=== PATIENT | female | born 1955 | race Caucasian/White ===

== ENCOUNTER 2025-07-04 20:06 | Observation (INO) ==
[2025-07-04] MEDS: ONDANSETRON INJ 2 MG/ML 2 ML VIAL IV STA (20:50)
[2025-07-04] MEDS: SODIUM CHLORIDE 0.9% 1,000 ML IV ONE (20:53)
[2025-07-04 21:07] LABS: Hematocrit (blood only) 42.7 % (37.0-47.0); Hemoglobin 14.3 g/dl (12.0-16.0); Immature Granulocytes # (auto) 0.03 K/uL (0.01-0.20); Immature Granulocytes % (auto) 0.2 %; Mean Corpuscular Hemoglobin 28.0 pg (25.0-34.0); Mean Corpuscular Volume 83.6 fL (80.0-100.0); Platelet Count 392 K/uL (130-400); RDW Standard Deviation 44.0 fL (36.4-46.3); Red Blood Count 5.11 M/uL (4.20-5.40); White Blood Count 12.42 K/ul (4.8-10.8)
[2025-07-04 21:25] LABS: Alanine Aminotransferase 10 U/L (7-52); Albumin Globulin Ratio 0.9 (0.9-2); Alkaline Phosphatase 92 U/L (34-104); Anion Gap 10 (3-11); Bilirubin,Total 0.8 mg/dl (0.2-1.0); Blood Urea Nitrogen 34 mg/dl (6-23); Calcium 9.6 mg/dl (8.6-10.3); Carbon Dioxide 20 mmol/L (21-32); Chloride 107 mmol/L (98-107); Globulin 4.3 gm/dl (2.5-4.0); Glucose 132 mg/dl (70-99(Fasting)); Lipase 30 U/L (11-82); Potassium 4.3 mmol/L (3.5-5.1); Sodium 137 mmol/L (136-145); Total Protein 8.1 gm/dl (6.0-8.3)
--- NOTE | 2025-07-04 21:38 | Emergency Department Note ---
Impression & Plan Lower abdominal pain, Bilateral hydronephrosis, Nausea & vomiting, Leukocytosis, Elevated serum creatinine ED Provider Note HISTORY OF PRESENT ILLNESS: Patient is a 70-year-old female presenting with nausea, vomiting and lower abdominal pain. Patient reports that she was recently seen in the [facility] emergency department 5 days ago. She reports that she was on vacation traveling in that area when she started to have nausea and vomiting and feel unwell. She states that she had a Chavez catheter placed, but was immediately having blood out of her Chavez and demanded to be discharged so that she could come closer to home and be evaluated by a doctor here. She signed out AGAINST MEDICAL ADVICE at that facility. They removed her Chavez catheter prior to discharge. She reportedly was on antibiotics for presumed UTI per the patient. Patient reports that she was doing fine over the weekend, but in the last 48 hours has had persistent nausea and vomiting. Reports that she is also having bilateral lower abdominal pain. She reports that she has had a cholecystectomy but no other abdominal surgeries. Denies any fevers at home, but does report subjective chills. Denies any dysuria or hematuria. Denies any recent sick contact exposures. ROS: as above PHYSICAL EXAM: Constitutional: Patient appears in no acute distress. HENT: Head: Normocephalic and atraumatic. Eyes: EOMI, PERRL Mouth/Throat: Mucous membranes moist. Neck: Trachea midline. Neck supple. Cardiovascular: Tachycardic with regular rhythm. No murmurs, rubs or gallops. Intact distal pulses. Pulmonary/Chest: No respiratory distress. Breath sounds clear and equal bilaterally. No wheezes or rales. Abdominal: Abdomen soft, no rebound or guarding. RLQ TTP Musculoskeletal: No edema, tenderness or deformity noted. Skin: Warm and dry. No rash, erythema, pallor or cyanosis Psychiatric: Appropriate mood and affect for situation. Neurological: Alert and keenly responsive. CN II-XII grossly intact, moving all extremities equally and fully. MDM: - Vitals signs showed hypertension and tachycardia. - History obtained via patient. History as above. - Chronic conditions affecting care: Unknown - Differential diagnoses include, but are not limited to: Appendicitis; bowel obstruction; UTI; ureteral stone; pyelonephritis - Order placed for continuous cardiac monitoring. At this time, monitor showed rate of 101 bpm with normal sinus rhythm, per my interpretation. - External medical records reviewed. - Laboratory workup interpreted by myself showed leukocytosis (WBC 12.42) with neutrophil predominance; elevated BUN (34); elevated creatinine (1.95 - unknown baseline); normal AST/ALT; normal lipase - CT abdomen/pelvis wo contrast showed bilateral hydronephrosis. - Patient given 1L NS, 1g IV tylenol and 4 mg IV zofran in ER. - UA showed elevated leukocyte esterase. - Discussion was had with case filler about patient's case and need for admission - Hospitalist consulted for admission - [facility] ASSESSMENT AND PLAN: Diagnosis: Lower abdominal pain; nausea and vomiting; elevated creatinine; leukocytosis; bilateral hydronephrosis Plan: admit Past Med/Surg History Problem List (Updated 07/04/25 @ 22:24 by Hazel Chand MD) Elevated serum creatinine (Acute) Leukocytosis (Acute) Nausea & vomiting (Acute) Bilateral hydronephrosis (Acute) Lower abdominal pain (Acute) Social History Smoking Status: Never smoker Preferred Language: Salvadorean Feels Safe at Home: Yes Allergies Allergies Allergy/AdvReac Type Severity Reaction Status Date / Time codeine Allergy Severe IV--WHOLE Verified 07/04/25 22:22 ARM SWELLED, SHORT OF BREATH Penicillins Allergy Intermediate Rash Verified 07/04/25 22:22 Sulfa (Sulfonamide Allergy Intermediate Rash Verified 07/04/25 22:22 Antibiotics) tetracycline Allergy Intermediate Rash Verified 07/04/25 22:22 Home Meds Home Medications Medication Instructions Recorded Confirmed insulin glargine 100 unit/mL (3 6 unit subcut BID 07/04/25 07/04/25 mL) subcutaneous pen (Lantus Solostar U-100 Insulin) metoprolol succinate 25 mg 0 mg PO DAILY 07/04/25 07/04/25 tablet,extended release 24 hr tirzepatide 2.5 mg/0.5 mL 2.5 mg subcut WK 07/04/25 07/04/25 subcutaneous pen injector (Mounjaro) Results & Data (ED) Vital Signs Vital Signs - 24 hr 07/04/25 20:10 07/04/25 20:48 Temperature 36.7 C Temperature Source Oral Pulse Rate 108 H 101 H Respiratory Rate 18 Respiratory Effort / Characteristics Non-Labored Spontaneous Respiratory Depth Normal Blood Pressure 117/68 Blood Pressure Mean 84 Pulse Oximetry 98 Oxygen Delivery Method Room Air Sepsis Recent Fever Within 48 Hours No Sepsis New/Unexplained Change in Mental Status No Sepsis Action Taken by Nursing No Action Required Laboratory Data 07/04/25 20:19 07/04/25 20:19 Lab Results 07/04/25 07/04/25 Range/Units 20:19 22:07 WBC 12.42 H (4.8-10.8) K/ul RBC 5.11 (4.20-5.40) M/uL Hgb 14.3 (12.0-16.0) g/dl Hct 42.7 (37.0-47.0) % MCV 83.6 (80.0-100.0) fL MCH 28.0 (25.0-34.0) pg MCHC 33.5 (32.0-36.0) g/dL RDW Std Deviation 44.0 (36.4-46.3) fL RDW Coeff of Maria A 14.4 (11.5-14.5) % Plt Count 392 (130-400) K/uL MPV 9.9 (9.4-12.4) fL Immature Gran % (Auto) 0.2 % Neut % (Auto) 71.5 % Lymph % (Auto) 20.4 % [place] % (Auto) 5.4 % Eos % (Auto) 1.7 % Baso % (Auto) 0.8 % Neut # (Auto) 8.88 H (1.40-6.50) K/uL Lymph # (Auto) 2.53 (1.20-3.40) K/uL [place] # (Auto) 0.67 H (0.11-0.59) K/uL Eos # (Auto) 0.21 (0.00-0.50) K/uL Baso # (Auto) 0.10 (0.00-0.20) K/uL Immature Gran # (Auto) 0.03 (0.01-0.20) K/uL Sodium 137 (136-145) mmol/L Potassium 4.3 (3.5-5.1) mmol/L Chloride 107 (98-107) mmol/L Carbon Dioxide 20 L (21-32) mmol/L Anion Gap 10 (3-11) BUN 34 H (6-23) mg/dl Creatinine 1.95 H (0.6-1.2) mg/dl Est Cr Clr Drug Dosing Not Reportable eGFR 27.19 BUN/Creatinine Ratio 17.4 (10-20) Glucose 132 H (70-99(Fasting)) mg/dl Calcium 9.6 (8.6-10.3) mg/dl Total Bilirubin 0.8 (0.2-1.0) mg/dl AST 16 (13-39) U/L ALT 10 (7-52) U/L Alkaline Phosphatase 92 (34-104) U/L Total Protein 8.1 (6.0-8.3) gm/dl Albumin 3.8 (3.4-5.0) gm/dl Globulin 4.3 H (2.5-4.0) gm/dl Albumin/Globulin Ratio 0.9 (0.9-2) Lipase 30 (11-82) U/L Urine Color Yellow Urine Appearance Cloudy A (Clear) Urine pH 6.0 (4.5-7.5) Ur Specific [place] 1.010 (1.000-1.030) Urine Protein 2+ H (Negative) Urine Glucose (UA) Negative (Negative) Urine Ketones Negative (Negative) Urine Blood 1+ H (Negative) Urine Nitrite Negative (Negative) Urine Bilirubin Negative (Negative) Urine Urobilinogen Negative (Negative) Ur Leukocyte Esterase 3+ H (Negative) Urine Comment Administered Medications Discontinued Medications Sodium Chloride (Nss) 1,000 mls @ 999 mls/hr IV .Q1H1M ONE Stop: 07/04/25 21:49 Last Infusion: 07/04/25 22:01 Dose: Infused Documented By: Admin: 07/04/25 20:53 Dose: 999 mls/hr Documented By: ARLENE Acetaminophen (Ofirmev) 1,000 mg in 100 mls @ 400 mls/hr IV NOW STA Stop: 07/04/25 22:07 Last Infusion: 07/04/25 22:20 Dose: Infused Documented By: Admin: 07/04/25 22:04 Dose: 400 mls/hr Documented By: ARLENE Ondansetron HCl (Ondansetron Inj 2 Mg/Ml 2 Ml Vial) 4 mg IV NOW STA Stop: 07/04/25 20:50 Last Admin: 07/04/25 20:50 Dose: 4 mg Documented By: ARLENE Imaging Data Radiologist's Impression: Abdomen/Pelvis CT 07/04/25 21:32 Exam(s): CT ABDOMEN + PELVIS Without Contrast EXAM: CT Abdomen and Pelvis Without Intravenous Contrast CLINICAL HISTORY: Reason for exam: lower abd pain. TECHNIQUE: Axial computed tomography images of the abdomen and pelvis without intravenous contrast. CTDI is 13.14 mGy and DLP is 640.88 mGy-cm. Automated exposure control was utilized for the study. A dose lowering technique was utilized adhering to the principles of ALARA. COMPARISON: No relevant prior studies available. FINDINGS: ABDOMEN: Liver: Unremarkable. Gallbladder and bile ducts: Cholecystectomy. Pancreas: Unremarkable. Spleen: Unremarkable. Adrenals: Unremarkable. Kidneys and ureters: Bilateral hydroureteronephrosis. No stones. No mass. Stomach and bowel: Colonic diverticulosis without acute diverticulitis. PELVIS: Appendix: No findings to suggest acute appendicitis. Bladder: Unremarkable. Reproductive: Unremarkable as visualized. ABDOMEN and PELVIS: Intraperitoneal space: Unremarkable. No free air. No significant fluid collection. Bones/joints: No acute fracture. Soft tissues: Unremarkable. Vasculature: Unremarkable. Lymph nodes: Unremarkable. IMPRESSION: 1. Bilateral hydroureteronephrosis. Electronically signed by: Raad Winston MD 07/04/25 22:18 PM Discharge Plan Visit Data Chief Complaint: Abdominal Pain Stated Complaint: KIDNEY TROUBLE, ABD PAIN ED Provider: Hazel Chand Discharge Problem: Lower abdominal pain, Bilateral hydronephrosis, Nausea & vomiting, Leukocytosis, Elevated serum creatinine Condition: Fair Forms Stand Alone Forms: [employer] Prescriptions Prescriptions: No Action metoprolol succinate 25 mg Tablet Extended Release 24 Hr 0 mg PO DAILY Rx Instructions: PT UNSURE OF STRENGTH, UNABLE TO VERIFY. insulin glargine [Lantus Solostar U-100 Insulin] 100 unit/mL (3 mL) Insulin Pen 6 unit SUBCUT BID Mounjaro 2.5 mg/0.5 mL pen injector 2.5 mg SUBCUT WK Rx Instructions: THURSDAYS Referrals Referrals: PCP,NO [Primary Care Provider] -
[2025-07-04] MEDS: ACETAMINOPHEN 1,000 MG/100 ML VIAL IV STA (22:04)
[2025-07-04 22:18] LABS: Appearance Urine Cloudy (Clear); Glucose Urine UA Negative (Negative)
--- NOTE | 2025-07-04 22:19 | CT Scan Report ---
Exam(s): CT ABDOMEN + PELVIS Without Contrast EXAM: CT Abdomen and Pelvis Without Intravenous Contrast CLINICAL HISTORY: Reason for exam: lower abd pain. TECHNIQUE: Axial computed tomography images of the abdomen and pelvis without intravenous contrast. CTDI is 13.14 mGy and DLP is 640.88 mGy-cm. Automated exposure control was utilized for the study. A dose lowering technique was utilized adhering to the principles of ALARA. COMPARISON: No relevant prior studies available. FINDINGS: ABDOMEN: Liver: Unremarkable. Gallbladder and bile ducts: Cholecystectomy. Pancreas: Unremarkable. Spleen: Unremarkable. Adrenals: Unremarkable. Kidneys and ureters: Bilateral hydroureteronephrosis. No stones. No mass. Stomach and bowel: Colonic diverticulosis without acute diverticulitis. PELVIS: Appendix: No findings to suggest acute appendicitis. Bladder: Unremarkable. Reproductive: Unremarkable as visualized. ABDOMEN and PELVIS: Intraperitoneal space: Unremarkable. No free air. No significant fluid collection. Bones/joints: No acute fracture. Soft tissues: Unremarkable. Vasculature: Unremarkable. Lymph nodes: Unremarkable. IMPRESSION: 1. Bilateral hydroureteronephrosis. Electronically signed by: Raad Winston MD 07/04/25 22:18 PM
[2025-07-04 22:30] LABS: Bacteria Urine Automated 2+ (None Seen); Epithelial Cell Urine Auto 0-2 /hpf (0-2); RBC Urine Automated 0-2 /hpf (0-2); WBC Urine Automated >50 /hpf (0-5)
[2025-07-04] MEDS: CEFEPIME 2000MG 2,000 MG/20 ML SYR IV STA (23:03)
[2025-07-04] MEDS: FAMOTIDINE 20MG IV PUSH 20 MG/5 ML SYR IV STA (23:03)
--- NOTE | 2025-07-04 23:04 | History & Physical Report ---
Date of Service July 04, 2025 Assessment & Plan (1) Acute UTI (urinary tract infection): (2) Bilateral hydronephrosis: (3) LISA (acute kidney injury): (4) T2DM (type 2 diabetes mellitus): Plan Patient is a 70-year-old female with a past medical history of type II DM, DVT no longer on Eliquis, HTN, CABG. Patient came into the ED due to several days of not feeling well, nausea, vomiting, difficulty emptying bladder, and lower abdominal pain as well as bilateral flank pain. She was found to have bilateral hydronephrosis (known history of), and UTI. #UTI/BL hydronephrosis/LISA - history of bilateral hydronephrosis, seen on abdomen pelvis CT. UA appears infectious for UTI with 3+ LE, > 50 WBC, 2+ bacteria - symptomatic. with leukocytosis, WBC 12.42. Cr 1.95, Bun 34 (unknown baseline), electrolytes stable. Reviewed [facility] records - had a CABG in April 2024 - with hx vesico- ureteral reflux, recurrent UTIs, bilateral hydronephrosis, and urinary retention afterwards with García catheter placed during CABG that was removed during this appointment (09/08/24). - refused garcía in ED, will trial purewick for strict I's and O's - urology consulted - NPO after midnight, possible cystoscopy in AM - patient reports has never had a cystoscopy - continue coverage with cefepime - hx DM, no previous cultures on file - IVF resuscitation with LR @ 125 ml/hr x 2l; received 1 L NSS in ED - pain control with IV Tylenol prn - nausea control with Zofran prn, Pepcid x1 on admission, pantoprazole 40 mg IV daily ordered - trend CBC and renal panel #T2DM - on glargine insulin and Mounjaro at home (Injections on ) - reduce home glargine from 6 U BID to 4 U BID - defer SSI, add if becomes hypoglycemic #HTN - Patient unsure of home metoprolol dose. Reviewed [facility] records and appears to be metoprolol succinate 50 mg twice daily, will order however held 07/05 with potential surgical management. #HX DVT - was on Eliquis x 6 months, no current medical managament. VTE ppx: SCDs - reported Hx of DVT however anticipate surgical management Dispo: med surg Staff working to obtain PCP records from [facility]. Note patient reportedly has followed with them for urology and cardiology in past. Also has seen [facility] urology x1. Admission and Anticipated Discharge Date Admission Date: 07/04/25 History of Present Illness Chief Complaint: abdominal pain Primary Care Provider: NO PCP Patient is a 70-year-old female with a past medical history of type II DM, DVT no longer on Eliquis, HTN, CABG. Patient came into the ED due to several days of not feeling well, nausea, vomiting, difficulty emptying bladder, and lower abdominal pain as well as bilateral flank pain. She was found to have bilateral hydronephrosis (known history of), and UTI. Patient seen at bedside with her present. She was seen in [facility] ER 5 days ago while she was on vacation camping due to difficulty emptying her bladder and not feeling well. She thinks the name of this might have been [facility] however she is not sure. she stated they tried to put a García in and noted blood gave her 1 dose of IV antibiotics for urinary tract infection but then she signed out AMA because she did not like the care she was receiving there. They did not discharge her on any home antibiotics. She is feeling fine over the weekend however over the last 48 hours developed significant nausea, vomiting, and not feeling well. She also has had difficulty emptying her bladder and worsening intermittent abdominal pain. She also endorses a low appetite and fever in which she took Tylenol at home. She denies any chest pain or shortness of breath. Patient has had numerous providers stating her CABG was with [facility] in April of last year, this is when they gave her the initial García and she had some urinary retention issues after. Noted 1 record from [facility] August 2024 with chronic hydronephrosis and García however patient states she did not have a García at this time. Patient stated she also followed with a urologist with [facility] and her primary care provider is [facility] however she is unhappy with her care there and would consider transitioning to care elsewhere. She denies nicotine or alcohol use. She is on Lantus, metoprolol, and Mounjaro on . She is unclear of her metoprolol dose however previous records reviewed appears to be 50 mg twice daily. She wishes to be DNR/DNI. Spoke with clinical coordinator, will try to obtain records from [facility] in the morning. Allergies Allergy/AdvReac Type Severity Reaction Status Date / Time codeine Allergy Severe IV--WHOLE Verified 07/04/25 22:22 ARM SWELLED, SHORT OF BREATH Penicillins Allergy Intermediate Rash Verified 07/04/25 22:22 Sulfa (Sulfonamide Allergy Intermediate Rash Verified 07/04/25 22:22 Antibiotics) tetracycline Allergy Intermediate Rash Verified 07/04/25 22:22 Home Medications Medication Instructions Recorded Confirmed Type insulin glargine 100 unit/mL (3 6 unit subcut BID 07/04/25 07/04/25 History mL) subcutaneous pen (Lantus Solostar U-100 Insulin) metoprolol succinate 25 mg 0 mg PO DAILY 07/04/25 07/04/25 History tablet,extended release 24 hr tirzepatide 2.5 mg/0.5 mL 2.5 mg subcut WK 07/04/25 07/04/25 History subcutaneous pen injector (Jeffrey) Past Med/Surg History Problem List (Updated 07/05/25 @ 01:01 by Liv Sanderson PA-C) Hypertension T2DM (type 2 diabetes mellitus) LISA (acute kidney injury) Acute UTI (urinary tract infection) (Acute) Elevated serum creatinine (Acute) Leukocytosis (Acute) Nausea & vomiting (Acute) Bilateral hydronephrosis (Acute) Lower abdominal pain (Acute) Medical History (Updated 07/05/25 @ 01:01 by Liv Sanderson PA-C) History of DVT (deep vein thrombosis) Social History Smoking Status: Never smoker Second Hand Exposure: No; Do You Dip or Chew Tobacco: No; Tobacco Cessation Education Requested by Patient: No Hx Alcohol Use: No Hx Substance Use: No Preferred Language: Luxembourgish Lead Level Designer Required: No Beliefs That Will Affect Care: None Current Living Situation: Spouse Other Information That Helps Us Care for You: No Feels Safe at Home: Yes Safety Concerns: Feels Safe At This Time Assistive Devices: None Review of Systems Review of Systems: see HPI Physical Exam Physical Exam: The patient is awake, alert and oriented 3, well developed and well nourished, normocephalic and atraumatic, in no acute distress. Non-toxic appearing. HEENT- EOMI, mucous membranes moist. Hearing grossly intact. Heart-normal S1 and S2. No murmurs, rubs or gallops. Lungs-clear bilaterally, no respiratory distress, no accessory muscle use. Abdomen-normal bowel sounds and soft. No ascites noted. Tender to RLL and LLQ, as well as BL flanks. Dry heaving on exam. Extremities- no clubbing, cyanosis, or edema. Rheumatologic-normal range of motion. Psychiatric-normal affect. Results & Data Results & Data Vital Signs (Past 12 Hours) Vital Signs Temp Pulse Pulse Resp BP BP Pulse Ox 07/04/25 22:00 90 12 142/88 H 99 07/04/25 20:48 101 H 07/04/25 20:10 36.7 C 108 H 18 117/68 98 O2 Del Method 07/04/25 22:00 Room Air 07/04/25 20:48 07/04/25 20:10 Room Air Laboratory Results reviewed cbc, cmp, UA Diagnostic Findings reviewed AP CT Medications Administered ED - cefepime 2 g IV, zofran 4mg IV, 1L NSS, 1 G IV Tylenol ECG Additional Comments: ordered Code Status & VTE Plan Code Status DNR/DNI VTE Prophylaxis Plan VTE Prophylaxis will be ordered: Yes Supervising Physician Co-Signing Physician Notes Attending addendum: I have physically seen this patient, have supervised the RAINE's activities, and agree with the H&P unless as otherwise noted. Assessment and Plan: The patient is a 70-year-old female with past medical history including diabetes mellitus type 2, DVT-Eliquis, hypertension, bilateral hydronephrosis, and status post CABG. She presents to the emergency department with several days of malaise, nausea, vomiting, difficulty emptying her bladder, lower abdominal pain and bilateral flank pain. CT scan of abdomen and pelvis again notes bilateral hydroureteronephrosis. Urinalysis suggest urinary tract infection. Patient was referred for evaluation for admission to [facility] service. Urinary tract infection/chronic bilateral hydronephrosis/Renal insufficiency- Patient has been seen at [facility], where she was found to have bilateral hydronephrosis, vesicoureteral reflux, recurrent UTIs, and urinary retention with García catheter placed, but has since been removed. Patient will be placed on PureWick in ED, having refused García catheter proposed by the ED. Creatinine 1.95, with unknown baseline, will attempt to get records from [facility] N.p.o. after midnight Follow urine culture and sensitivity Cefepime 2 g IV every 12 hours LR at 125 mL/h after 1 L normal saline bolus from the ED Acetaminophen 1 g IV every 8 hours as needed for mild pain or fever Zofran 4 mg IV every 6 hours as needed Pantoprazole 40 mg IV daily CBC with differential and BMP in a.m. Consult urology Diabetes mellitus type 2- Hold Mounjaro Glargine reduced from 64 units subcu twice daily Glucose 132 on admission Check a HbA1c Hypertension/status post CABG April 2024- Metoprolol succinate 50 mg twice daily with hold parameters Hyperlipidemia- Previously on atorvastatin which has been stopped Check a Fasting lipid panel PG Care Time/CCT Total # of Minutes Spent Total Time Spent with Patient: Total time spent is greater than 50% in coordination of care (as documented) at patient's floor/unit and/or counseling patient: Coding Level of Care Code 83426 INT INP/OBS CARE 3/75MIN Diagnoses Acute UTI (urinary tract infection) N39.0 Bilateral hydronephrosis N13.30 LISA (acute kidney injury) N17.9 T2DM (type 2 diabetes mellitus) E11.9
[2025-07-04] MEDS ORDERED: GLUCAGON FOR INJ 1 MG VIAL SQ PRN (23:29)
[2025-07-04] MEDS ORDERED: GLUCOSE 40% GEL 15 GM TUBE PO PRN (23:29)
[2025-07-04] MEDS ORDERED: CARBOHYDRATES FOR HYPOGLYCEMIA PO PRN (23:29)
[2025-07-04] MEDS ORDERED: GLUCOSE 10 TAB/TUBE PO PRN (23:29)
[2025-07-04] MEDS ORDERED: MELATONIN 3 MG TAB PO PRN (23:29)
[2025-07-04] MEDS ORDERED: DOCUSATE SODIUM 100 MG CAP PO PRN (23:29)
[2025-07-04] MEDS ORDERED: DEXTROSE 50% 50 ML SYRINGE IV PRN (23:29)
[2025-07-05] MEDS: ONDANSETRON INJ 2 MG/ML 2 ML VIAL IV PRN (02:20)
[2025-07-05] MEDS: LACTATED RINGER'S 1,000 ML IV SCH (02:25)
[2025-07-05 04:39] LABS: Hematocrit (blood only) 40.4 % (37.0-47.0); Hemoglobin 13.0 g/dl (12.0-16.0); Immature Granulocytes # (auto) 0.03 K/uL (0.01-0.20); Immature Granulocytes % (auto) 0.3 %; Mean Corpuscular Hemoglobin 26.9 pg (25.0-34.0); Mean Corpuscular Volume 83.6 fL (80.0-100.0); Platelet Count 336 K/uL (130-400); RDW Standard Deviation 44.2 fL (36.4-46.3); Red Blood Count 4.83 M/uL (4.20-5.40); White Blood Count 10.40 K/ul (4.8-10.8)
[2025-07-05 04:55] LABS: Anion Gap 6.0 (3-11); Blood Urea Nitrogen 33.0 mg/dl (6-23); Calcium 8.9 mg/dl (8.6-10.3); Carbon Dioxide 19.0 mmol/L (21-32); Chloride 112.0 mmol/L (98-107); Creatinine Clr Calc Pharmacy 23.1 ml/min; Glucose 97.0 mg/dl (70-99(Fasting)); Potassium 4.2 mmol/L (3.5-5.1); Sodium 137.0 mmol/L (136-145)
[2025-07-05] MEDS: ACETAMINOPHEN 1,000 MG/100 ML VIAL IV PRN (05:14)
[2025-07-05 07:18] LABS: Cholesterol 174.0 mg/dl (0-200); HDL Cholesterol 28.0 mg/dl; Triglycerides 239.0 mg/dl (0-150)
[2025-07-05] MEDS ORDERED: MoRPHine SULFATE 2 MG/ML CARP IV PRN ×2 (07:40)
[2025-07-05 07:51] LABS: Hemoglobin A1C 6.5 % (4.5-5.6)
[2025-07-05] MEDS ORDERED: HYDROmorphone INJ 0.5 MG/0.5 ML SYR IV PRN (07:58)
[2025-07-05] MEDS: METOPROLOL SUCC 50MG EXT REL TAB PO SCH (08:00)
[2025-07-05] MEDS: PANTOprazole 40 MG/10 ML SYR IV SCH (08:01)
[2025-07-05] MEDS: LANTUS PER UNIT CHARGE SQ SCH (08:18)
[2025-07-05] MEDS: HYDROmorphone INJ 0.5 MG/0.5 ML SYR IV PRN (08:23)
--- NOTE | 2025-07-05 09:58 | Electrocardiogram Report ---
Test Reason : Blood Pressure : */* mmHG Vent. Rate : 76 BPM Atrial Rate : 76 BPM P-R Int : 150 ms QRS Dur : 98 ms QT Int : 394 ms P-R-T Axes : 69 26 129 degrees QTcB Int : 443 ms Normal sinus rhythm Inferior infarct , age undetermined Anteroseptal infarct , age undetermined Abnormal ECG No previous ECGs available Confirmed by Jamison Nguyen ([id number]) on 07/05/2025 9:57:58 AM Referred By: REFERRED SELF Confirmed By: Jamison Nguyen
--- NOTE | 2025-07-05 10:02 | Urology Consultation ---
<Statement entered by Sj Mckeon MD - 07/05/25 11:23> Agree with assessment and plan as written, would avoid instrumentation in setting suspected UTI, notable that reflux is a risk for recurrent uti and renal insufficiency would need further workup of this probably with VCUG as outpatient then consider abx suppression vs surgical management with either deflux procedu re or less likely cross trigonal bilateral ureteral reimplantation Date of Consultation July 05, 2025 Assessment & Plan (1) Bilateral hydronephrosis: (2) LISA (acute kidney injury): (3) Acute UTI (urinary tract infection): 70-year-old female with past medical history of bilateral hydroureteronephrosis, vesicoureteral reflux and recurrent UTIs admitted for bilateral hydronephrosis, LISA and suspected UTI. Urology is consulted for chronic bilateral hydronephrosis Patient is afebrile and hemodynamically stable Labs reviewedcreatinine 1.98, WBC 10.4, hemoglobin 13.0 UA suspicious for infection with 3+ LE, pyuria and bacteria Urine culture is pending CT abdomen pelvis shows bilateral hydroureteronephrosis to the level of the bladder, no stones Recommend continue broad-spectrum antibiotics and narrow per sensitivity data when available No acute intervention planned at this time Maintain Chavez catheter Continue supportive care and medical management per hospital medicine service Will arrange outpatient follow-up with our office to discuss ongoing management will sign off, please contact our service with any additional questions or concerns History of Present Illness Reason for Consultation: Chronic bilateral hydronephrosis, cystoscopy? Attending Physician: Guillermina Frazier MD History of Present Illness This is a 70-year-old female with past medical history of bilateral hydroureteronephrosis, vesicoureteral reflux and recurrent UTIs who presented to the emergency department on 07/04/2025 for evaluation of flank/abdominal pain, nausea and vomiting. She was recently on vacation in [place] and was evaluated in the emergency department at that time for the same symptoms. She had a Chavez catheter placed, which drained bloody urine. She signed out AMA at that facility and asked for Chavez catheter to be removed prior to discharge. She wished to follow-up closer to home. She continued to have persistent nausea and vomiting as well as flank and abdominal pain prompting ED evaluation. On arrival to ED, she was afebrile, tachycardic, normotensive. Lab work showed leukocytosis of 12.42, hemoglobin 14.3, creatinine 1.95 (baseline unknown at this time). Urinalysis demonstrated 2+ protein, 1+ blood, 3+ LE, pyuria and 2+ bacteria, yeast present. Workup included CT abdomen pelvis without contrast. CT independently reviewed and shows bilateral hydroureteronephrosis to the level of the bladder; no stones. She was treated with IV fluids, ondansetron and acetaminophen in the ED. She was admitted to the hospital medicine service for bilateral hydronephrosis, LISA and suspected UTI. She was started on cefepime. Labs today reviewedcreatinine 1.98, WBC 10.4, hemoglobin 13.0 Urine culture pending Patient seen and examined at bedside. She continues to have bilateral flank and abdominal discomfort, but improved since arrival. Reports nausea, low appetite. No fever or chills at present. Chavez catheter in place with clear yellow urine. She has followed with urology in the past. Most recently she saw [facility] urology in August 2024. She reports she was diagnosed with vesicoureteral reflux approximately 29 years ago at [facility], previously underwent workup. She did not undergo treatment or surgery at that time due to having 4 small children. She reports one of her daughters was diagnosed with vesicoureteral reflux and had a repair as a baby. She reports having urinary tract infections over the years, but more frequent in the past year after her CABG. Also notes that her renal function has been worsening. Allergies Allergy/AdvReac Type Severity Reaction Status Date / Time codeine Allergy Severe IV--WHOLE Verified 07/04/25 22:22 ARM SWELLED, SHORT OF BREATH Penicillins Allergy Intermediate Rash Verified 07/04/25 22:22 Sulfa (Sulfonamide Allergy Intermediate Rash Verified 07/04/25 22:22 Antibiotics) tetracycline Allergy Intermediate Rash Verified 07/04/25 22:22 Home Medications Medication Instructions Recorded Confirmed Type insulin glargine 100 unit/mL (3 6 unit subcut BID 07/04/25 07/04/25 History mL) subcutaneous pen (Lantus Solostar U-100 Insulin) metoprolol succinate 25 mg 0 mg PO DAILY 07/04/25 07/04/25 History tablet,extended release 24 hr tirzepatide 2.5 mg/0.5 mL 2.5 mg subcut WK 07/04/25 07/04/25 History subcutaneous pen injector (Jeffrey) Patient History Medical History History of DVT (deep vein thrombosis) Social History Smoking Status: Never smoker Second Hand Exposure: No; Do You Dip or Chew Tobacco: No; Tobacco Cessation Education Requested by Patient: No Hx Alcohol Use: No Hx Substance Use: No Preferred Language: Syriac [employer] Required: No Beliefs That Will Affect Care: None Current Living Situation: Spouse Other Information That Helps Us Care for You: No Feels Safe at Home: Yes Safety Concerns: Feels Safe At This Time Assistive Devices: None Review of Systems Review of Systems: All systems reviewed & are unremarkable except as noted in HPI & below Physical Exam Constitutional: well developed and well nourished; no acute distress Respiratory: normal respiratory effort; no respiratory distress and no labored breathing Gastrointestinal (Abdomen): Inspection/Auscultation: abdomen normal to inspection Musculoskeletal: Head/Neck/Chest: normocephalic Neurologic: moves all extremities and awake Psychiatric: Orientation: alert and oriented x 3 Results & Data Vital Signs (Past 12 Hours) Vital Signs Temp Pulse Pulse Resp BP BP Pulse Ox 07/05/25 07:00 36.7 C 75 16 150/85 H 98 07/05/25 06:12 148/80 H 07/05/25 05:31 07/05/25 04:15 36.4 C L 80 18 176/95 H 99 07/05/25 00:03 79 07/04/25 23:30 78 20 166/109 H 98 07/04/25 23:00 87 20 168/115 H 100 O2 Del Method 07/05/25 07:00 Room Air 07/05/25 06:12 07/05/25 05:31 Room Air 07/05/25 04:15 Room Air 07/05/25 00:03 07/04/25 23:30 07/04/25 23:00 PG Care Time/CCT Total # of Minutes Spent Total Time Spent with Patient: Total time spent is greater than 50% in coordination of care (as documented) at patient's floor/unit and/or counseling patient: Coding Level of Care Code 88970 INT INP/OBS CARE MIN Diagnoses Bilateral hydronephrosis N13.30 LISA (acute kidney injury) N17.9 Acute UTI (urinary tract infection) N39.0
[2025-07-05] MEDS: CEFEPIME 2000MG 2,000 MG/20 ML SYR IV SCH (10:31)
[2025-07-05] MEDS: ACETAMINOPHEN 325 MG TAB PO SCH (10:56)
--- NOTE | 2025-07-05 11:03 | Hospitalist Progress Note ---
Date of Service July 05, 2025 Assessment & Plan (1) Acute UTI (urinary tract infection): (2) Bilateral hydronephrosis: (3) LISA (acute kidney injury): (4) T2DM (type 2 diabetes mellitus): Plan Patient is a 70-year-old female with a past medical history of type II DM, DVT no longer on Eliquis, HTN, CABG. Patient came into the ED due to several days of not feeling well, nausea, vomiting, difficulty emptying bladder, and lower abdominal pain as well as bilateral flank pain. She was found to have bilateral hydronephrosis (known history of), and UTI. #UTI/BL hydronephrosis/LISA - history of bilateral hydronephrosis, seen on CT A/P. UA looks infectious, leukocytosis, WBC 12.42. Cr 1.95, Bun 34 (unknown baseline), electrolytes stable. Reviewed [facility] records - had a CABG in April 2024 - with hx vesico-ureteral reflux, recurrent UTIs, bilateral hydronephrosis, and urinary retention afterwards with García catheter placed during CABG that was removed during this appointment (09/08/24). Urology consulted - rec treat infection, no acute intervention, outpatient follow up, maintain garcía (ideally until OP follow up) continue coverage with cefepime - hx DM, no previous cultures on file Continue IVF resuscitation with LR @ 125 ml/hr x 2l; received 1 L NSS in ED with poor PO intake Pain control: scheduled tylenol, Prn dilaudid Baseline kidney function unclear - attempt to get records, pt does endorse being told she had "bad kidney numbers" in the past AM CBC and BMP #T2DM - on glargine insulin and Mounjaro at home (Injections on ) A1c 6.5 - reduce home glargine from 6 U BID to 4 U BID - defer SSI, add if becomes hypoglycemic #HTN - metoprolol succinate 50 mg twice daily continued #HX DVT - was on Eliquis x 6 months, no current medical managament. VTE ppx: SCDs Dispo: continued inpatient stay pending culture and for pain/nause control. trending kidney function updated at bedside 07/05 Admission and Anticipated Discharge Date Admission Date: July 04, 2025 Subjective Patient seen lying in bed, present at bedside. States she is still quite nauseous and having some abdominal and back pain. Nausea and vomiting is a very common UTI symptom for her. Follows with [facility] for PCP but looking to switch. States that she has been told by other doctors that her kidney function is abnormal but she does know what value, and does not have a patient portal Review of Systems Review of Systems: All systems reviewed & are unremarkable except as noted in Subjective Physical Exam Physical Exam: General: NAD, VS as above, appears unwell Resp: normal respiratory effort, lungs clear to auscultation CV: RRR, no murmur, Abd: normal bowel sounds, soft, mild generalized tenderness Extremities: Moves all extremities, Neuro: A&O x3, Results & Data Results & Data Vital Signs (Past 12 Hours) Vital Signs Temp Pulse Pulse Resp BP BP Pulse Ox 07/05/25 07:00 98.1 F 75 16 150/85 H 98 07/05/25 06:12 148/80 H 07/05/25 05:31 07/05/25 04:15 97.5 F L 80 18 176/95 H 99 07/05/25 00:03 79 07/04/25 23:30 78 20 166/109 H 98 07/04/25 23:00 87 20 168/115 H 100 O2 Del Method 07/05/25 07:00 Room Air 07/05/25 06:12 07/05/25 05:31 Room Air 07/05/25 04:15 Room Air 07/05/25 00:03 07/04/25 23:30 07/04/25 23:00 Laboratory Results cbc and chemistry reviwed PG Care Time/CCT Total # of Minutes Spent Total Time Spent with Patient: Total time spent is greater than 50% in coordination of care (as documented) at patient's floor/unit and/or counseling patient: Coding Level of Care Code 81704 SUB INP/OBS CARE 3/50MIN Diagnoses Acute UTI (urinary tract infection) N39.0 Bilateral hydronephrosis N13.30 LISA (acute kidney injury) N17.9 T2DM (type 2 diabetes mellitus) E11.9
[2025-07-05] MEDS: diphenhydrAMINE Capsule 25 MG CAP PO ONE (15:36)
[2025-07-05] MEDS: CEFEPIME 1000MG 1,000 MG/10 ML SYR IV SCH (20:14)
[2025-07-06] MEDS: PROCHLORPERAZINE 5 MG in SYRINGE 4 ML IV ONE (04:01)
[2025-07-06 07:36] LABS: Hematocrit (blood only) 37.3 % (37.0-47.0); Hemoglobin 12.0 g/dl (12.0-16.0); Mean Corpuscular Hemoglobin 26.7 pg (25.0-34.0); Mean Corpuscular Volume 83.1 fL (80.0-100.0); Platelet Count 316 K/uL (130-400); RDW Standard Deviation 44.0 fL (36.4-46.3); Red Blood Count 4.49 M/uL (4.20-5.40); White Blood Count 11.26 K/ul (4.8-10.8)
[2025-07-06 07:54] LABS: Anion Gap 5.0 (3-11); Blood Urea Nitrogen 37.0 mg/dl (6-23); Calcium 8.7 mg/dl (8.6-10.3); Carbon Dioxide 21.0 mmol/L (21-32); Chloride 110.0 mmol/L (98-107); Creatinine Clr Calc Pharmacy 20.3 ml/min; Glucose 95.0 mg/dl (70-99(Fasting)); Potassium 4.6 mmol/L (3.5-5.1); Sodium 136.0 mmol/L (136-145)
--- NOTE | 2025-07-06 13:13 | Hospitalist Progress Note ---
Date of Service July 06, 2025 Assessment & Plan (1) Acute UTI (urinary tract infection): (2) Bilateral hydronephrosis: (3) LISA (acute kidney injury): (4) T2DM (type 2 diabetes mellitus): Plan Patient is a 70-year-old female with a past medical history of type II DM, DVT no longer on Eliquis, HTN, CABG. Patient came into the ED due to several days of not feeling well, nausea, vomiting, difficulty emptying bladder, and lower abdominal pain as well as bilateral flank pain. She was found to have bilateral hydronephrosis (known history of), and UTI. #UTI/BL hydronephrosis/LISA - history of bilateral hydronephrosis, seen on CT A/P. UA looks infectious, leukocytosis, WBC 12.42. Cr 1.95, Bun 34 (unknown baseline), electrolytes stable. Reviewed [facility] records - had a CABG in April 2024 - with hx vesico-ureteral reflux, recurrent UTIs, bilateral hydronephrosis, and urinary retention afterwards with García catheter placed during CABG that was removed during this appointment (09/08/24). Urology consulted - rec treat infection, no acute intervention, outpatient follow up, maintain garcía (ideally until OP follow up) continue coverage with cefepime - hx DM, no previous cultures on file Pain control: scheduled tylenol, Prn dilaudid Baseline kidney function unclear - attempt to get records, pt does endorse being told she had "bad kidney numbers" in the past, I called her PCP to attempt to get records today 07/06 and was sent to voice mail Cr increased to 2.25 today, 500cc NSS bolus given. Encourage PO Recheck AM BMP #T2DM - on glargine insulin and Mounjaro at home (Injections on ) A1c 6.5 - reduce home glargine from 6 U BID to 4 U BID BSG acceptable #HTN - metoprolol succinate 50 mg twice daily continued #HX DVT - was on Eliquis x 6 months, no current medical management. VTE ppx: SCDs Dispo: continued inpatient stay. trending kidney function updated at bedside 07/05 Admission and Anticipated Discharge Date Admission Date: July 04, 2025 Subjective Patient seen sitting up in bed. states she is feeling a bit better today. Having nausea but does have to take nausea medicine occasionally at home abd pain is less. tolerating liquid intake focusing on taking more solids Physical Exam Physical Exam: General: NAD, VS as above, appears unwell Resp: normal respiratory effort, lungs clear to auscultation CV: RRR, no murmur, Abd: normal bowel sounds, soft, mild generalized tenderness Extremities: Moves all extremities, Neuro: A&O x3, Results & Data Results & Data Vital Signs (Past 12 Hours) Vital Signs Temp Pulse Resp BP Pulse Ox O2 Del Method 07/06/25 08:42 75 134/76 07/06/25 08:00 97.9 F 74 16 131/75 98 Room Air Laboratory Results cbc and chemistry reviewed PG Care Time/CCT Total # of Minutes Spent Total Time Spent with Patient: Total time spent is greater than 50% in coordination of care (as documented) at patient's floor/unit and/or counseling patient: Coding Level of Care Code 94219 SUB INP/OBS CARE 2/35MIN Diagnoses Acute UTI (urinary tract infection) N39.0 Bilateral hydronephrosis N13.30 LISA (acute kidney injury) N17.9 T2DM (type 2 diabetes mellitus) E11.9
[2025-07-06] MEDS: SODIUM CHLORIDE 0.9% 500 ML IV ONE (13:42)
[2025-07-07 08:06] LABS: Anion Gap 4.0 (3-11); Blood Urea Nitrogen 36.0 mg/dl (6-23); Calcium 8.6 mg/dl (8.6-10.3); Carbon Dioxide 24.0 mmol/L (21-32); Chloride 108.0 mmol/L (98-107); Creatinine Clr Calc Pharmacy 21.3 ml/min; Glucose 96.0 mg/dl (70-99(Fasting)); Potassium 4.7 mmol/L (3.5-5.1); Sodium 136.0 mmol/L (136-145)
[2025-07-07 08:15] VITALS: TEMP 97.7; O2SAT 99
[2025-07-07 11:23] VITALS: BP 149/85; PULSE 68; RESP 12
--- NOTE | 2025-07-07 11:24 | Discharge Summary ---
Discharge Summary Date of Service July 07, 2025 Principal Dx & Hospital Course #1 = Principal Diagnosis (1) Acute UTI (urinary tract infection): (2) Bilateral hydronephrosis: (3) LISA (acute kidney injury): (4) T2DM (type 2 diabetes mellitus): Plan #UTI/BL hydronephrosis/LISA - Patient is a 70-year-old female with a past medical history of type II DM, DVT no longer on Eliquis, HTN, CABG. Patient came into the ED due to several days of not feeling well, nausea, vomiting, difficulty emptying bladder, and lower abdominal pain as well as bilateral flank pain. She was found to have bilateral hydronephrosis (known history of), and UTI. UA concerning for infection however culture showed contamination. She received cefepime here and improved greatly, will discharge with short course of Cipro given her elevated kidney function, the dose was adjusted for this. Urology consulted - rec treat infection, no acute intervention, outpatient follow up, maintain garcía (ideally until OP follow up) Baseline kidney function unclear - attempt to get records, pt does endorse being told she had "bad kidney numbers" in the past, I called her PCP to attempt to get records today 07/06 and was sent to voice mail. Creatinine is improving. Discharged home today with encourage p.o. intake. Patient will be transferring her care to [facility] PCP, encouraged to call her old PCP to have records transferred. #T2DM - on glargine insulin and Mounjaro at home (Injections on ) - Continue recommend holding Mounjaro for 1 week. #HTN - metoprolol succinate 50 mg twice daily continued #HX DVT - was on Eliquis x 6 months, no current medical management. Dispo: Discharge to home today with urology follow-up Admission HPI Per Admitting Provider Patient is a 70-year-old female with a past medical history of type II DM, DVT no longer on Eliquis, HTN, CABG. Patient came into the ED due to several days of not feeling well, nausea, vomiting, difficulty emptying bladder, and lower abdominal pain as well as bilateral flank pain. She was found to have bilateral hydronephrosis (known history of), and UTI. Patient seen at bedside with her present. She was seen in [facility] ER 5 days ago while she was on vacation camping due to difficulty emptying her bladder and not feeling well. She thinks the name of this might have been [facility] however she is not sure. she stated they tried to put a Fole y in and noted blood gave her 1 dose of IV antibiotics for urinary tract infection but then she signed out AMA because she did not like the care she was receiving there. They did not discharge her on any home antibiotics. She is feeling fine over the weekend however over the last 48 hours developed significant nausea, vomiting, and not feeling well. She also has had difficulty emptying her bladder and worsening intermittent abdominal pain. She also endorses a low appetite and fever in which she took Tylenol at home. She denies any chest pain or shortness of breath. Patient has had numerous providers stating her CABG was with [facility] in April of last year, this is when they gave her the initial García and she had some urinary retention issues after. Noted 1 record from [facility] August 2024 with chronic hydronephrosis and García however patient states she did not have a García at this time. Patient stated she also followed with a urologist with [facility] and her primary care provider is [facility] however she is unhappy with her care there and would consider transitioning to care elsewhere. She denies nicotine or alcohol use. She is on Lantus, metoprolol, and Mounjaro on . She is unclear of her metoprolol dose however previous records reviewed appears to be 50 mg twice daily. She wishes to be DNR/DNI. Spoke with clinical coordinator, will try to obtain records from [facility] in the morning. Discharge Exam General: NAD, VS as above, appears unwell Resp: normal respiratory effort, lungs clear to auscultation CV: RRR, no murmur, Abd: normal bowel sounds, soft, mild generalized tenderness Extremities: Moves all extremities, Neuro: A&O x3, Discharge Plan Discharge Items Patient Disposition: Home - Self-Care Reason For Visit: UTI, BL HYDRONEPHROSIS, LISA Discharge Diagnosis: UTI Condition on Discharge: Fair Activity: Resume your previous activity Non-emergency contact: Primary Care Provider Call non-emergency contact if: you have any medication questions, your symptoms worsen, your pain is not controlled and your temperature is above 101.5 Follow-up/Referrals: Carly An CRNP [Nurse Practitioner] - 07/11/25 11:00 am (Urology follow up 1-2 weeks ) Rosie Lowe DO [Physician] - 07/12/25 11:00 am (This will be your new PCP - please complete paper work and take this with you ) Diet: Carb Consistent or DM2 Addtl Attending Provider Instructions: Ms. Montiel, You were hospitalized after worsening symptoms and difficulty urinating. This was found to be from a UTI and your known hydronephrosis. You were treated with a catheter and IV antibiotics and have started to feel much better. You will be discharged with 3 more days of oral antibiotics. Urology has recommended that the catheter stay in place until follow up. You should see them in the next 1-2 weeks. Their office should call you with an appointment, if you do not hear from them by Friday, please call the number above. Please complete the new patient packet provided and take that to your new PCP. If possible, please request records from your OLD PCP be sent to Dr. Lowe's office. You can still take the but would recommend you wait until next for your next injection. Activity: You can do normal everyday activities as your body allows. Take rest breaks if you feel tired. Do not overexert. Stop activity if you have pain, shortness of breath or feel dizzy. Follow-up appointments: Make an appointment with your primary care physician within one week of discharge. A copy of this summary will be sent to them. Every time you see your primary care physician, or any other doctor, bring your medication list, and a list of questions. CONTACT YOUR PRIMARY CARE PROVIDER if you experience any of the following: Shortness of breath or difficulty breathing Fevers or chills Feeling tired with normal activity or experiencing dizziness or fainting Difficulty following your treatment plan, or difficulty taking medications CALL 911 OR GO TO THE EMERGENCY DEPARTMENT if you experience any of the following: Severe abdominal pain or nausea/vomiting Severe chest pain, or chest pain that radiates (moves) to your jaw or arm Sudden, severe shortness of breath or difficulty breathing Thank you for allowing us to participate in your care. Pending Studies at Discharge: No Stand-Alone Forms: My [employer], Smoking Cessation Medications and DC Order Prescriptions: New ciprofloxacin HCl 500 mg tablet 500 mg PO DAILY Qty: 3 0RF Continued metoprolol succinate 25 mg Tablet Extended Release 24 Hr 0 mg PO DAILY Rx Instructions: PT UNSURE OF STRENGTH, UNABLE TO VERIFY. insulin glargine [Lantus Solostar U-100 Insulin] 100 unit/mL (3 mL) Insulin Pen 6 unit SUBCUT BID Mounjaro 2.5 mg/0.5 mL pen injector 2.5 mg SUBCUT WK Rx Instructions: THURSDAYS Discharge Orders: Discharge Order (Routine); Ordered 07/07/25 Ordered By: Radha Olivas/Other Patient Handouts: García Catheter Female Ch, ED Urinary Retention, Female Admission Data Admit Date/Time: 07/04/25 23:17 Attending Provider: Julian Rock Admit Provider: Boogie Randolph Primary Care Provider: britt camacho Other Providers: Boogie Randolph; Sj Mckeon Other Interventions: Discharge Summary Assessment (RN) Last Done: 07/07/25 12:27 Hospital Stay Data Consultations 07/04/25 22:24 ED Decision to Admit Stat 07/04/25 23:29 Consult Urology Routine Diagnostic Imagining Performed Abdomen/Pelvis CT 07/04/25 21:32 Exam(s): CT ABDOMEN + PELVIS Without Contrast EXAM: CT Abdomen and Pelvis Without Intravenous Contrast CLINICAL HISTORY: Reason for exam: lower abd pain. TECHNIQUE: Axial computed tomography images of the abdomen and pelvis without intravenous contrast. CTDI is 13.14 mGy and DLP is 640.88 mGy-cm. Automated exposure control was utilized for the study. A dose lowering technique was utilized adhering to the principles of ALARA. COMPARISON: No relevant prior studies available. FINDINGS: ABDOMEN: Liver: Unremarkable. Gallbladder and bile ducts: Cholecystectomy. Pancreas: Unremarkable. Spleen: Unremarkable. Adrenals: Unremarkable. Kidneys and ureters: Bilateral hydroureteronephrosis. No stones. No mass. Stomach and bowel: Colonic diverticulosis without acute diverticulitis. PELVIS: Appendix: No findings to suggest acute appendicitis. Bladder: Unremarkable. Reproductive: Unremarkable as visualized. ABDOMEN and PELVIS: Intraperitoneal space: Unremarkable. No free air. No significant fluid collection. Bones/joints: No acute fracture. Soft tissues: Unremarkable. Vasculature: Unremarkable. Lymph nodes: Unremarkable. IMPRESSION: 1. Bilateral hydroureteronephrosis. Electronically signed by: Raad Winston MD 07/04/25 22:18 PM Pending Results Patient Have Any Pending Studies at Discharge: No Discharge Instructions Given to Patient (Per Discharging Provider) Ms. Montiel, Denny were hospitalized after worsening symptoms and difficulty urinating. This was found to be from a UTI and your known hydronephrosis. You were treated with a catheter and IV antibiotics and have started to feel much better. You will be discharged with 3 more days of oral antibiotics. Urology has recommended that the catheter stay in place until follow up. You should see them in the next 1-2 weeks. Their office should call you with an appointment, if you do not hear from them by Friday, please call the number above. Please complete the new patient packet provided and take that to your new PCP. If possible, please request records from your OLD PCP be sent to Dr. Lowe's office. You can still take the but would recommend you wait until next for your next injection. Activity: You can do normal everyday activities as your body allows. Take rest breaks if you feel tired. Do not overexert. Stop activity if you have pain, shortness of breath or feel dizzy. Follow-up appointments: Make an appointment with your primary care physician within one week of discharge. A copy of this summary will be sent to them. Every time you see your primary care physician, or any other doctor, bring your medication list, and a list of questions. CONTACT YOUR PRIMARY CARE PROVIDER if you experience any of the following: Shortness of breath or difficulty breathing Fevers or chills Feeling tired with normal activity or experiencing dizziness or fainting Difficulty following your treatment plan, or difficulty taking medications CALL 911 OR GO TO THE EMERGENCY DEPARTMENT if you experience any of the following: Severe abdominal pain or nausea/vomiting Severe chest pain, or chest pain that radiates (moves) to your jaw or arm Sudden, severe shortness of breath or difficulty breathing Thank you for allowing us to participate in your care. Supervising Physician Co-Signing Physician Notes The patient was not seen by me. The chart was reviewed. Case discussed with NADEGE Bender. Agree with assessment and plan Total Time Total Time Spent Total Time Spent (In Minutes): Time spent day of discharge 36 minutes including direct patient care, medication reconciliation, documentation, review of labs and images, and coordination of care. Coding Level of Care Code 10568 INP/OBS DISCH >30 MIN Diagnoses Acute UTI (urinary tract infection) N39.0 Bilateral hydronephrosis N13.30 LISA (acute kidney injury) N17.9 T2DM (type 2 diabetes mellitus) E11.9
== END 2025-07-07 13:19 | disposition home or self-care (01) | DRG 690 ==
LOC: ED 20:06 → INTOOBSV 23:17 → EDINP 23:17 → SUATTDRO 23:17 → 3W 23:29

== ENCOUNTER 2025-07-14 09:40 | Observation (INO) ==
[2025-07-14] MEDS: ONDANSETRON INJ 2 MG/ML 2 ML VIAL IV STA (10:05)
--- NOTE | 2025-07-14 10:08 | Emergency Department Note ---
Impression & Plan Acute UTI, Acute urinary retention, Vomiting, Leukocytosis, Elevated lactic acid level, Elevated troponin, Ureteral reflux ED Provider Note NAME: GINNA ANGUIANO AGE: 70 SEX: F : 1955 ARRIVES VIA: Walk-In INFORMANT: [Patient] ED PROVIDER(S): [Keith Sharpe MD] CHIEF COMPLAINT: Urinary symptoms HISTORY OF PRESENT ILLNESS: The patient is a 70-year-old female who was recently in the hospital for UTI. Yesterday, she had a urologic procedure to evaluate her ureteral reflux. She states that all night last night and today, she has had vomiting. She has lower abdominal pain that moves to her flanks. She feels weak and washed out and has noticed some urinary burning. She thinks she again has a UTI. She has not had fever, no cough or congestion or respiratory complaints. No chest pain. She is currently asking for pain and nausea medication. PMHx/PSHx/Social Hx: See Below PHYSICAL EXAM: GENERAL: Patient is in no acute distress. HEENT: No acute trauma, normocephalic atraumatic, mucous membranes moist, no nasal congestion. NECK: No stridor, no adenopathy, no meningismus, trachea is midline. LUNGS: Clear to auscultation bilaterally, no wheeze, no rhonchi, breath sounds equal. HEART: Without murmurs gallops or rubs, regular rate and rhythm. ABDOMEN: Soft, mildly diffusely tender, no distention. EXTREMITIES: No cyanosis, full range of motion of all the joints without pain or difficulty. NEUROLOGIC: Oriented x 3, no acute motor or sensory deficits, no focal weakness. SKIN: No jaundice, no diaphoresis. DIFFERENTIAL DIAGNOSIS: UTI, urinary retention, hydronephrosis and renal colic, electrolyte imbalance, dehydration, bacteremia or sepsis, among others. EMERGENCY DEPARTMENT PROCEDURES: MEDICAL DECISION MAKING: There is a moderate leukocytosis, this would be consistent with infection. There is a normal hemoglobin and platelet count. Patient does have an elevation of the creatinine at 1.64 although, this is improved compared to some recent testing. No electrolyte abnormality in need of emergent correction. Lactic acid level is elevated consistent with potential infection/sepsis versus dehydration. Repeat lactic acid level showed clearing. No worrisome liver enzyme elevation. No evidence for pancreatitis. ECG shows sinus tachycardia without acute acute ischemic change. Cardiac enzyme testing x 2 is somewhat elevated although, the delta troponin is negative making the patient's troponin elevation more consistent with mismatch rather than acute cardiac injury. Urinalysis does suggest infection. Abdominal and pelvis CT shows a distended bladder, there is hydronephrosis. No obvious ureteral stone. On exam, the patient was initially quite uncomfortable and nauseated. She was not febrile. She was not hypotensive. The patient was given IV saline, 1 L. She was given IV Phenergan, IV Zofran, IV Dilaudid. She received IV cefepime and IV Tylenol. Patient has shown improvement with the above medications/interventions. The patient is in need of a hospital stay. She requires IV hydration, antibiotic therapy and monitoring. Of note, the patient was unable to completely drain her bladder spontaneously. Nursing staff did perform a straight cath to drain the bladder. A Chavez catheter was not placed in the ED. I spoke with the patient and family. I spoke with case management, the on-call hospitalist was consulted. Prior/Outside records/notes reviewed: Discharge summary note from 07/07/2025 describing her presentation, findings and hospital course. ECG per my interpretation: Indication was vomiting and abdominal pain. The ECG shows a sinus tachycardia with a rate of 103. 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 There is no acute ST elevation, no PVCs. The QTc is 463. Continuous Cardiac Monitoring per my interpretation: An order was placed for continuous cardiac monitoring. The monitor shows a rate of 101 with sinus tachycardia. Imaging/x-ray results per my interpretation: Chronic Medical/Social conditions affecting care: Advanced age, recent hospitalization Care/Management discussed with: Case management, the on-call hospitalist. Level of care consideration(s): After review of the information above and other included data: --I believe the patient requires escalation of care to admission Critical Care Note: I have personally spent 43 minutes of critical care time in the direct management of this patient. This includes bedside care, interpretation of diagnostic studies, and testing, discussion with consultants, patient, and family members, and other required patient management activities. This 43 minutes is in excess of all separately billable procedures. DISPOSITION: Admission Past Med/Surg History Problem List (Updated 07/14/25 @ 14:01 by Keith Sharpe MD) Ureteral reflux (Acute) Elevated troponin (Acute) Elevated lactic acid level (Acute) Leukocytosis (Acute) Vomiting (Acute) Acute urinary retention (Acute) Acute UTI (Acute) Urinary incontinence CAD (coronary artery disease) Recurrent urinary tract infection Hypertension T2DM (type 2 diabetes mellitus) LISA (acute kidney injury) Elevated serum creatinine (Acute) Bilateral hydronephrosis (Acute) Medical History Lower abdominal pain Nausea & vomiting Leukocytosis Acute UTI (urinary tract infection) History of DVT (deep vein thrombosis) Surgical History History of coronary artery bypass graft H/O heart surgery S/P urethral surgery Hx of cholecystectomy Hx of tonsillectomy Family History Father Diabetes Heart disease Hypertension Sister Diabetes Brother Diabetes Denies family history of Ovarian cancer Prostate cancer Lung cancer Colorectal cancer Stroke Social History Smoking Status: Never smoker Second Hand Exposure: No; Do You Dip or Chew Tobacco: No; Hx Alcohol Use: No Hx Substance Use: No Preferred Language: Russian Communication Ability: Effective Visual Impairment: No Limitations Hearing Ability: Normal Dry Pan Charger Required: No Beliefs That Will Affect Care: None marital status: Current Living Situation: Spouse Current Living Situation Comment: current occupational status: retired How many Children do You have: 4 Feels Safe at Home: Yes Childhood Exposure to Second-Hand Smoke: No Diet: other Diet Comment: no carb diet caffeine: Yes during the past year weight has: decreased > 10 lbs Dental Care, Regularly: Yes Physical Activity Frequency: Daily Seatbelt Use: always Sunscreen Use: Yes Assistive Devices: None Allergies Allergies Allergy/AdvReac Type Severity Reaction Status Date / Time banana Allergy Severe Vomiting Unverified 07/14/25 12:23 Beef Containing Products Allergy Severe Vomiting Unverified 07/14/25 12:23 codeine Allergy Severe IV--WHOLE Verified 07/14/25 12:23 ARM SWELLED, SHORT OF BREATH corn Allergy Severe Vomiting Unverified 07/14/25 12:23 Milk Containing Products Allergy Severe Vomiting Unverified 07/14/25 12:23 (Dairy) morphine Allergy Severe IV--WHOLE Verified 07/14/25 12:23 ARM SWELLED, SHORT OF BREATH Penicillins Allergy Intermediate Rash Verified 07/14/25 12:23 Sulfa (Sulfonamide Allergy Intermediate Rash Verified 07/14/25 12:23 Antibiotics) tetracycline Allergy Intermediate Rash Verified 07/14/25 12:23 Home Meds Home Medications Medication Instructions Recorded Confirmed insulin glargine 100 unit/mL (3 6 unit subcut BID 07/04/25 07/14/25 mL) subcutaneous pen (Lantus Solostar U-100 Insulin) tirzepatide 2.5 mg/0.5 mL 2.5 mg subcut WK 07/04/25 07/14/25 subcutaneous pen injector (Mounjaro) atorvastatin 80 mg tablet 80 mg PO DAILY 07/12/25 07/14/25 metoprolol succinate 25 mg 50 mg PO DAILY 07/12/25 07/14/25 tablet,extended release 24 hr nepswxdv-tooctuxv-oivdc acid 240 1 tab PO DAILY 07/14/25 07/14/25 mcg-vit K1 150 mcg-herb 357 tablet (Alive Women's 50 Plus Ultra Multivitamin) Previous Rx's Medication Instructions Recorded nitrofurantoin 100 mg PO DAILY 30 days #30 caps 07/11/25 monohydrate/macrocrystals 100 mg capsule (Macrobid) Results & Data (ED) Vital Signs Vital Signs - 24 hr 07/14/25 09:43 07/14/25 10:08 07/14/25 10:42 Temperature 36.1 C L Temperature Source Oral Pulse Rate 114 H 101 H 92 H Pulse Rate from SpO2 Sensor Respiratory Rate 16 21 Respiratory Effort / Characteristics Non-Labored Spontaneous Respiratory Depth Normal Blood Pressure 159/103 H Blood Pressure Mean 121 Pulse Oximetry 100 Oxygen Delivery Method Room Air Sepsis Recent Fever Within 48 Hours No Sepsis New/Unexplained Change in Mental Status No Sepsis Action Taken by Nursing No Action Required 07/14/25 10:51 07/14/25 11:03 07/14/25 11:30 Temperature Temperature Source Pulse Rate 93 H 98 H Pulse Rate from SpO2 Sensor 93 H 99 H Respiratory Rate 18 17 Respiratory Effort / Characteristics Respiratory Depth Blood Pressure 160/95 H 150/82 H 168/96 H Blood Pressure Mean 116 104 120 Pulse Oximetry 95 98 Oxygen Delivery Method Sepsis Recent Fever Within 48 Hours Sepsis New/Unexplained Change in Mental Status Sepsis Action Taken by Nursing 07/14/25 13:12 07/14/25 13:39 Temperature Temperature Source Pulse Rate 88 98 H Pulse Rate from SpO2 Sensor 88 99 H Respiratory Rate 16 28 H Respiratory Effort / Characteristics Respiratory Depth Blood Pressure 137/78 137/83 Blood Pressure Mean 97 101 Pulse Oximetry 97 99 Oxygen Delivery Method Sepsis Recent Fever Within 48 Hours Sepsis New/Unexplained Change in Mental Status Sepsis Action Taken by Shelter Medications Current Medication List: was personally reviewed by me Laboratory Data Attestation: I reviewed the patient's lab results. 07/14/25 10:02 07/14/25 10:02 Lab Results 07/14/25 07/14/25 07/14/25 Range/Units 10:02 10:37 11:45 WBC 14.97 H (4.8-10.8) K/ul RBC 5.30 (4.20-5.40) M/uL Hgb 14.7 (12.0-16.0) g/dl Hct 43.9 (37.0-47.0) % MCV 82.8 (80.0-100.0) fL MCH 27.7 (25.0-34.0) pg MCHC 33.5 (32.0-36.0) g/dL RDW Std Deviation 44.3 (36.4-46.3) fL RDW Coeff of Maria A 14.6 H (11.5-14.5) % Plt Count 348 (130-400) K/uL MPV 10.6 (9.4-12.4) fL Immature Gran % (Auto) 0.3 % Neut % (Auto) 83.6 % Lymph % (Auto) 12.2 % Gosper % (Auto) 3.5 % Eos % (Auto) 0.1 % Baso % (Auto) 0.3 % Neut # (Auto) 12.51 H (1.40-6.50) K/uL Lymph # (Auto) 1.83 (1.20-3.40) K/uL Gosper # (Auto) 0.53 (0.11-0.59) K/uL Eos # (Auto) 0.01 (0.00-0.50) K/uL Baso # (Auto) 0.05 (0.00-0.20) K/uL Immature Gran # (Auto) 0.04 (0.01-0.20) K/uL Sodium 138 (136-145) mmol/L Potassium 4.2 (3.5-5.1) mmol/L Chloride 103 (98-107) mmol/L Carbon Dioxide 19 L (21-32) mmol/L Anion Gap 16 H (3-11) BUN 34 H (6-23) mg/dl Creatinine 1.64 H (0.6-1.2) mg/dl Est Cr Clr Drug Dosing Not Reportable eGFR 33.47 BUN/Creatinine Ratio 20.7 H (10-20) Glucose 169 H (70-99(Fasting)) mg/dl Lactate 2.6 H* (0.4-2.0) mmol/L Calcium 10.0 (8.6-10.3) mg/dl Total Bilirubin 1.3 H (0.2-1.0) mg/dl AST 17 (13-39) U/L ALT 15 (7-52) U/L Alkaline Phosphatase 98 (34-104) U/L Troponin I High Sens 32.6 H 29.8 H (0-14) pg/ml Total Protein 8.5 H (6.0-8.3) gm/dl Albumin 4.1 (3.4-5.0) gm/dl Globulin 4.4 H (2.5-4.0) gm/dl Albumin/Globulin Ratio 0.9 (0.9-2) Lipase 20 (11-82) U/L Urine Color Urine Appearance (Clear) Urine pH (4.5-7.5) Ur Specific Mercer (1.000-1.030) Urine Protein (Negative) Urine Glucose (UA) (Negative) Urine Ketones (Negative) Urine Blood (Negative) Urine Nitrite (Negative) Urine Bilirubin (Negative) Urine Urobilinogen (Negative) Ur Leukocyte Esterase (Negative) Urine WBC (Auto) (0-5) /hpf Urine RBC (Auto) (0-2) /hpf U Hyaline Cast (Auto) (0-2) /lpf U Epithel Cells (Auto) (0-2) /hpf Urine Bacteria (Auto) (None Seen) Urine Yeast (None Prsent) Urine Comment 07/14/25 07/14/25 Range/Units 12:01 12:33 WBC (4.8-10.8) K/ul RBC (4.20-5.40) M/uL Hgb (12.0-16.0) g/dl Hct (37.0-47.0) % MCV (80.0-100.0) fL MCH (25.0-34.0) pg MCHC (32.0-36.0) g/dL RDW Std Deviation (36.4-46.3) fL RDW Coeff of Maria A (11.5-14.5) % Plt Count (130-400) K/uL MPV (9.4-12.4) fL Immature Gran % (Auto) % Neut % (Auto) % Lymph % (Auto) % Gosper % (Auto) % Eos % (Auto) % Baso % (Auto) % Neut # (Auto) (1.40-6.50) K/uL Lymph # (Auto) (1.20-3.40) K/uL Gosper # (Auto) (0.11-0.59) K/uL Eos # (Auto) (0.00-0.50) K/uL Baso # (Auto) (0.00-0.20) K/uL Immature Gran # (Auto) (0.01-0.20) K/uL Sodium (136-145) mmol/L Potassium (3.5-5.1) mmol/L Chloride (98-107) mmol/L Carbon Dioxide (21-32) mmol/L Anion Gap (3-11) BUN (6-23) mg/dl Creatinine (0.6-1.2) mg/dl Est Cr Clr Drug Dosing eGFR BUN/Creatinine Ratio (10-20) Glucose (70-99(Fasting)) mg/dl Lactate 1.4 (0.4-2.0) mmol/L Calcium (8.6-10.3) mg/dl Total Bilirubin (0.2-1.0) mg/dl AST (13-39) U/L ALT (7-52) U/L Alkaline Phosphatase (34-104) U/L Troponin I High Sens (0-14) pg/ml Total Protein (6.0-8.3) gm/dl Albumin (3.4-5.0) gm/dl Globulin (2.5-4.0) gm/dl Albumin/Globulin Ratio (0.9-2) Lipase (11-82) U/L Urine Color Yellow Urine Appearance Cloudy A (Clear) Urine pH 5.5 (4.5-7.5) Ur Specific Mercer 1.012 (1.000-1.030) Urine Protein 2+ H (Negative) Urine Glucose (UA) Negative (Negative) Urine Ketones Trace H (Negative) Urine Blood Trace H (Negative) Urine Nitrite Negative (Negative) Urine Bilirubin Negative (Negative) Urine Urobilinogen Negative (Negative) Ur Leukocyte Esterase 3+ H (Negative) Urine WBC (Auto) >50 H (0-5) /hpf Urine RBC (Auto) 3-5 H (0-2) /hpf U Hyaline Cast (Auto) 3-5 H (0-2) /lpf U Epithel Cells (Auto) 0-2 (0-2) /hpf Urine Bacteria (Auto) None Seen (None Seen) Urine Yeast Present A (None Prsent) Urine Comment Administered Medications Discontinued Medications Hydromorphone HCl (Hydromorphone Inj 0.5 Mg/0.5 Ml Syr) 0.5 mg IV NOW STA Stop: 07/14/25 10:29 Last Admin: 07/14/25 10:51 Dose: 0.5 mg Documented By: CEF Sodium Chloride (Nss) 1,000 mls @ 999 mls/hr IV .Q1H1M STA Stop: 07/14/25 10:52 Last Infusion: 07/14/25 11:46 Dose: Infused Documented By: Admin: 07/14/25 10:10 Dose: 999 mls/hr Documented By: CEF Acetaminophen (Ofirmev) 1,000 mg in 100 mls @ 400 mls/hr IV NOW STA Stop: 07/14/25 10:06 Last Infusion: 07/14/25 10:40 Dose: Infused Documented By: Admin: 07/14/25 10:10 Dose: 400 mls/hr Documented By: CEF Promethazine HCl (Phenergan) 6.25 mg in 50.25 mls @ 201 mls/hr IV NOW STA Stop: 07/14/25 10:18 Last Infusion: 07/14/25 10:51 Dose: Infused Documented By: Admin: 07/14/25 10:34 Dose: 201 mls/hr Documented By: CEF Cefepime HCl (Maxipime 2000mg) 2,000 mg in 20 mls @ 5 mls/min IV NOW STA; Protocol Stop: 07/14/25 10:59 Last Admin: 07/14/25 11:27 Dose: 5 mls/min Documented By: CEF Morphine Sulfate (Morphine Sulfate 2 Mg/Ml Carp) 2 mg IV NOW STA Stop: 07/14/25 10:05 Last Admin: 07/14/25 10:18 Dose: Not Given Documented By: CEF Ondansetron HCl (Ondansetron Inj 2 Mg/Ml 2 Ml Vial) 4 mg IV NOW STA Stop: 07/14/25 09:53 Last Admin: 07/14/25 10:05 Dose: 4 mg Documented By: CEF Imaging Data Radiologist's Impression: Abdomen/Pelvis CT 07/14/25 09:54 CT OF THE ABDOMEN AND PELVIS WITHOUT CONTRAST CLINICAL HISTORY: Flank pain. Chronic renal failure. COMPARISON STUDY: CT of the abdomen and pelvis July 04, 2025. TECHNIQUE: Axial images of the abdomen and pelvis were obtained without IV contrast. Images were reviewed in the axial, sagittal, and coronal planes. Automated exposure control was utilized for the study. A dose lowering technique was utilized adhering to the principles of ALARA. FINDINGS: Visualized lung bases are unremarkable. Moderate bilateral hydroureteronephrosis is similar to CT of July 04, 2025. The ureters are dilated to the level of the bladder. There are no ureteral calculi. Bladder is moderately distended. There is mild bladder wall thickening. There is minimal bilateral perinephric stranding. This is unchanged. Left renal sinus calcifications are likely vascular in etiology. Low-attenuation 1.4 cm left renal lesion likely represents a cyst although is indeterminate and suboptimally assessed on unenhanced exam. Evaluation of the remainder of the abdomen and pelvis is suboptimal on unenhanced exam. There is no biliary ductal dilatation status post cholecystectomy. Liver, spleen, adrenal glands and pancreas are unremarkable. Is no abdominal or pelvic lymphadenopathy. There are no fluid collections. There is sigmoid diverticulosis. No evidence for acute diverticulitis. IMPRESSION: 1. No significant change in bilateral hydroureteronephrosis since CT of July 04, 2025. Ureters dilated to the level of the bladder. No ureteral calculi. Moderate bladder distention with mild bladder wall thickening. 2. No bowel obstruction 3. Sigmoid diverticulosis. No evidence for acute diverticulitis. ACT 112: Negative or not required by law. Electronically signed by: Jareth Hobbs M.D. 07/14/2025 11:31 AM Discharge Plan Visit Data Chief Complaint: Urinary Symptoms Stated Complaint: REFLUX UTI ED Provider: Keith Sharpe Discharge Problem: Acute UTI, Acute urinary retention, Vomiting, Leukocytosis, Elevated lactic acid level, Elevated troponin, Ureteral reflux Patient Disposition: Admitted As Inpatient Condition: Fair Forms Stand Alone Forms: My [facility], Important Visit Information Prescriptions Prescriptions: No Action atorvastatin 80 mg tablet 80 mg PO DAILY nitrofurantoin monohyd/m-cryst [Macrobid] 100 mg capsule 100 mg PO DAILY 30 Days Qty: 30 3RF Rx Instructions: must administer with a meal/food, take for continuous antibiotic prophylaxis insulin glargine [Lantus Solostar U-100 Insulin] 100 unit/mL (3 mL) Insulin Pen 6 unit SUBCUT BID Mounjaro 2.5 mg/0.5 mL pen injector 2.5 mg SUBCUT WK Rx Instructions: THURSDAYS metoprolol succinate 25 mg tablet extended release 24 hr 50 mg PO DAILY Alive Women's 50 Plus Ultra MV 240-150 mcg Tablet 1 tab PO DAILY Referrals Referrals: Rosie Lowe DO [Primary Care Provider] - Discharge Problem: Vomiting Qualifiers: Vomiting type: unspecified Nausea presence: with nausea Qualified Code(s): R 11.2 - Nausea with vomiting, unspecified Leukocytosis Qualifiers: Leukocytosis type: unspecified Qualified Code(s): D72.829 - Elevated white blood cell count, unspecified
[2025-07-14] MEDS: ACETAMINOPHEN 1,000 MG/100 ML VIAL IV STA (10:10)
[2025-07-14] MEDS: SODIUM CHLORIDE 0.9% 1,000 ML IV STA (10:10)
[2025-07-14] MEDS: MoRPHine SULFATE 2 MG/ML CARP IV STA (10:18)
[2025-07-14 10:23] LABS: Hematocrit (blood only) 43.9 % (37.0-47.0); Hemoglobin 14.7 g/dl (12.0-16.0); Immature Granulocytes # (auto) 0.04 K/uL (0.01-0.20); Immature Granulocytes % (auto) 0.3 %; Mean Corpuscular Hemoglobin 27.7 pg (25.0-34.0); Mean Corpuscular Volume 82.8 fL (80.0-100.0); Platelet Count 348 K/uL (130-400); RDW Standard Deviation 44.3 fL (36.4-46.3); Red Blood Count 5.30 M/uL (4.20-5.40); White Blood Count 14.97 K/ul (4.8-10.8)
[2025-07-14] MEDS: PROMETHAZINE 6.25 MG/50.25 ML BAG IV STA (10:34)
[2025-07-14 10:40] LABS: Alanine Aminotransferase 15 U/L (7-52); Albumin Globulin Ratio 0.9 (0.9-2); Alkaline Phosphatase 98 U/L (34-104); Anion Gap 16 (3-11); Bilirubin,Total 1.3 mg/dl (0.2-1.0); Blood Urea Nitrogen 34 mg/dl (6-23); Calcium 10.0 mg/dl (8.6-10.3); Carbon Dioxide 19 mmol/L (21-32); Chloride 103 mmol/L (98-107); Globulin 4.4 gm/dl (2.5-4.0); Glucose 169 mg/dl (70-99(Fasting)); Lipase 20 U/L (11-82); Potassium 4.2 mmol/L (3.5-5.1); Sodium 138 mmol/L (136-145); Total Protein 8.5 gm/dl (6.0-8.3)
[2025-07-14] MEDS: HYDROmorphone INJ 0.5 MG/0.5 ML SYR IV STA (10:51)
[2025-07-14] MEDS: CEFEPIME 2000MG 2,000 MG/20 ML SYR IV STA (11:27)
--- NOTE | 2025-07-14 11:32 | CT Scan Report ---
CT OF THE ABDOMEN AND PELVIS WITHOUT CONTRAST CLINICAL HISTORY: Flank pain. Chronic renal failure. COMPARISON STUDY: CT of the abdomen and pelvis July 04, 2025. TECHNIQUE: Axial images of the abdomen and pelvis were obtained without IV contrast. Images were revi ewed in the axial, sagittal, and coronal planes. Automated exposure control was utilized for the xiomy dy. A dose lowering technique was utilized adhering to the principles of ALARA. FINDINGS: Visualized lung bases are unremarkable. Moderate bilateral hydroureteronephrosis is similar to CT of July 04, 2025. The ureters are dilated to the level of the bladder. There are no ureter al calculi. Bladder is moderately distended. There is mild bladder wall thickening. There is minimal bilateral perinephric stranding. This is unchanged. Left renal sinus calcifications are likely vascul ar in etiology. Low-attenuation 1.4 cm left renal lesion likely represents a cyst although is indeter minate and suboptimally assessed on unenhanced exam. Evaluation of the remainder of the abdomen and p mikey is suboptimal on unenhanced exam. There is no biliary ductal dilatation status post cholecystec tiffany. Liver, spleen, adrenal glands and pancreas are unremarkable. Is no abdominal or pelvic lymphade nopathy. There are no fluid collections. There is sigmoid diverticulosis. No evidence for acute diver ticulitis. IMPRESSION: 1. No significant change in bilateral hydroureteronephrosis since CT of July 04, 2025. Ureters di lated to the level of the bladder. No ureteral calculi. Moderate bladder distention with mild bladder wall thickening. 2. No bowel obstruction 3. Sigmoid diverticulosis. No evidence for acute diverticulitis. ACT 112: Negative or not required by law. Electronically signed by: Jareth Hobbs M.D. 07/14/2025 11:31 AM
[2025-07-14 12:37] LABS: Appearance Urine Cloudy (Clear); Bacteria Urine Automated None Seen (None Seen); Epithelial Cell Urine Auto 0-2 /hpf (0-2); Glucose Urine UA Negative (Negative); WBC Urine Automated >50 /hpf (0-5)
--- NOTE | 2025-07-14 13:27 | History & Physical Report ---
"<Statement entered by Guillermina Frazier MD - 07/14/25 19:05> I have reviewed vital signs, chart notes, labs and imaging. I have personally seen, evaluated and examined the patient. I have also discussed the management of the patient with the RAINE and I agree with the exam findings documented in the history and physical examination and the documented assessment and plan unless otherwise stated below. On exam AOx4, chest wall TTP anteriorly over sternum, reg no mrg, normal WOB, abd s/nt/nd Estrellita was highly symptomatic after voiding CUG yesterday with intractable vomiting, flank pain. She has been voiding some since then but concerning for ongoing urinary retention triggering these symptoms as well. She voided some in the ED but bladder appears quite distended on CT. We are going to follow PVRs and she may need garcía to be replaced. She has pyuria but UA is identical to the previous one excepting no bacteria on present UA. We will treat in case of UTI, however, this may be chronic pyuria. Plan to update her urologist. Nausea now controlled after doses of antiemetics. Date of Service July 14, 2025 Assessment & Plan (1) Acute UTI: (2) Bilateral hydronephrosis: (3) T2DM (type 2 diabetes mellitus): (4) Hypertension: Plan Patient is a 70-year-old female with a past medical history of type II DM, DVT no longer on Eliquis, HTN, CABG. Patient came into the ED after nausea and abd pain after recent Voiding cystourethrogram. Initial eval with elevated lactate improved with IV fluids, UA concerning for infection and CT A/P with stable hydronephrosis. Admited for IV abx ##UTI | BL hydronephrosis | questionable CKD- with hx of bilateral hydronephrosis, CTAP with no significant change in BL hydronephrosis since CT of 07/04/25, no calculi, bladder with moderate distention. Follows with urology, recent course of cefepime/cipro for UTI and outpatient Voiding cystourethrogram 07/12. straight catheterized for 600ml of urine in ED >UA with 3+LE, pending culture from straight cath >BC pending >leukocytosis with WBCs at 14.97 - trend with AM CBC >Cefipime 2000mg IV in ED , no concern for MDRO, deescelate to Ceftriaxone 2g IV Q24H >NSS 1 liter bolus in ED, continue LR @ 125 x 2L Check PVR with each void to monitor for retention, d/c with garcía last admission Unclear Cr baseline - concern for CKD being followed in the OP setting. Cr today improved from prior ##T2DM >HBA1C 07/05/25 at 6.5. Home meds: Lantus 6u BID, and monjuaro - HELD > Continue Lantus 4 units SQ BID Check BSG ACHS - add SSI if needed ##HTN >cont home Metoprolol 50mg daily Dispo: observation to med/surg VTE prophylaxis: SCDs, consider chemical prophylaxis if stay prolonged History of Present Illness Chief Complaint: Vomiting and chills Primary Care Provider: Rosie Lowe DO Patient is a 70 year old female with PMHx of recurrent UTIs, elevated serum creatinine, CAD with hx of CABG, type 2 diabetes, HTN, bilateral hydronephrosis, LISA, DVT with Eliquis course of 6m (completed) and urinary incontinence that presents with c/o vomiting and chills since late yesterday afternoon post voiding cystourethrogram procedure she had done secondary to hx of bilateral hydronephrosis/frequent UTIs for further evaluation. Has voided since procedure but feels she has to strain to empty bladder. Unable to tolerate food/liquids. +chills/diaphoresis. Reports of right sided abdominal discomfort-denies flank pain. Reports concerns related to residual dye being present in her bladder since procedure. Did start taking prophylactic Macrobid daily per urology recs. ED course of treatment: >1L of NSS >Zofran 4mg IV >Ofirmev 1 gram IV >Morphine sulfate 2mg IV >Phenergan 6.25mg IV >Hydromorphone 0.5mg IV >Cefepime 2000mg IV She is following with [facility]. She wishes to be a DNR/DNI. Allergies Allergy/AdvReac Type Severity Reaction Status Date / Time banana Allergy Severe Vomiting Unverified 07/14/25 12:23 Beef Containing Products Allergy Severe Vomiting Unverified 07/14/25 12:23 codeine Allergy Severe IV--WHOLE Verified 07/14/25 12:23 ARM SWELLED, SHORT OF BREATH corn Allergy Severe Vomiting Unverified 07/14/25 12:23 Milk Containing Products Allergy Severe Vomiting Unverified 07/14/25 12:23 (Dairy) morphine Allergy Severe IV--WHOLE Verified 07/14/25 12:23 ARM SWELLED, SHORT OF BREATH Penicillins Allergy Intermediate Rash Verified 07/14/25 12:23 Sulfa (Sulfonamide Allergy Intermediate Rash Verified 07/14/25 12:23 Antibiotics) tetracycline Allergy Intermediate Rash Verified 07/14/25 12:23 Home Medications Medication Instructions Recorded Confirmed Type insulin glargine 100 unit/mL (3 6 unit subcut BID 07/04/25 07/14/25 History mL) subcutaneous pen (Lantus Solostar U-100 Insulin) tirzepatide 2.5 mg/0.5 mL 2.5 mg subcut WK 07/04/25 07/14/25 History subcutaneous pen injector (Mounjaro) nitrofurantoin 100 mg PO DAILY 30 days #30 caps 07/11/25 07/14/25 Rx monohydrate/macrocrystals 100 mg capsule (Macrobid) atorvastatin 80 mg tablet 80 mg PO DAILY 07/12/25 07/14/25 History metoprolol succinate 25 mg 50 mg PO DAILY 07/12/25 07/14/25 History tablet,extended release 24 hr xpsdjwmc-fnltbuea-xekcg acid 240 1 tab PO DAILY 07/14/25 07/14/25 History mcg-vit K1 150 mcg-herb 357 tablet (Alive Women's 50 Plus Ultra Multivitamin) Past Med/Surg History Problem List (Updated 07/14/25 @ 14:01 by Keith Sharpe MD) Ureteral reflux (Acute) Elevated troponin (Acute) Elevated lactic acid level (Acute) Leukocytosis (Acute) Vomiting (Acute) Acute urinary retention (Acute) Acute UTI (Acute) Urinary incontinence CAD (coronary artery disease) Recurrent urinary tract infection Hypertension T2DM (type 2 diabetes mellitus) LISA (acute kidney injury) Elevated serum creatinine (Acute) Bilateral hydronephrosis (Acute) Medical History Lower abdominal pain Nausea & vomiting Leukocytosis Acute UTI (urinary tract infection) History of DVT (deep vein thrombosis) Surgical History History of coronary artery bypass graft H/O heart surgery S/P urethral surgery Hx of cholecystectomy Hx of tonsillectomy Family History Father Diabetes Heart disease Hypertension Sister Diabetes Brother Diabetes Denies family history of Ovarian cancer Prostate cancer Lung cancer Colorectal cancer Stroke Social History Smoking Status: Never smoker Second Hand Exposure: No; Do You Dip or Chew Tobacco: No; Hx Alcohol Use: No Hx Substance Use: No Preferred Language: American Communication Ability: Effective Visual Impairment: No Limitations Hearing Ability: Normal Merchant Seaman Required: No Beliefs That Will Affect Care: None marital status: Current Living Situation: Spouse Current Living Situation Comment: current occupational status: retired How many Children do You have: 4 Feels Safe at Home: Yes Childhood Exposure to Second-Hand Smoke: No Diet: other Diet Comment: no carb diet caffeine: Yes during the past year weight has: decreased > 10 lbs Dental Care, Regularly: Yes Physical Activity Frequency: Daily Seatbelt Use: always Sunscreen Use: Yes Assistive Devices: None Review of Systems Review of Systems: All systems reviewed & are unremarkable except as noted in Subjective Physical Exam Physical Exam: VITALS: Reviewed. GEN: Healthy appearing, well-developed, NAD. -Head: NC/AT; -Mouth and throat: MM dry. NECK: Supple, with no masses. CV: RRR, no m/r/g. LUNGS: CTAB, no w/r/c. ABD: Soft, tenderness RLQ abd, NBS, no masses or organomegaly. SKIN: Warm, well perfused. EXT: No clubbing, cyanosis, or edema. Results & Data Results & Data Vital Signs (Past 12 Hours) Vital Signs Temp Pulse Resp BP Pulse Ox O2 Del Method 07/14/25 13:12 88 16 137/78 97 07/14/25 11:30 98 H 17 168/96 H 98 07/14/25 11:03 93 H 18 150/82 H 95 07/14/25 10:51 160/95 H 07/14/25 10:42 92 H 21 07/14/25 10:08 101 H 07/14/25 09:43 97 F L 114 H 16 159/103 H 100 Room Air Laboratory Results cbc, chemistry, troponin and lactate reviewed UA reviewed Diagnostic Findings CT A/p Reviewed PG Care Time/CCT Total # of Minutes Spent Total Time Spent with Patient: Total time spent is greater than 50% in coordination of care (as documented) at patient's floor/unit and/or counseling patient: Coding Level of Care Code 56275 INT INP/OBS CARE 3/75MIN Diagnoses Acute UTI N39.0 Bilateral hydronephrosis N13.30 Type 2 diabetes mellitus without complication, with long-term current use of insulin E11.9; Z79.4 Diabetes mellitus complication status: without complication Diabetes mellitus half-way insulin use: with termite control representative use Hypertension I10 (3) T2DM (type 2 diabetes mellitus) Diabetes mellitus complication status: without complication Diabetes mellitus half-way insulin use: with half-way use Qualified Code(s): E11.9 - Type 2 diabetes mellitus without complications; Z79.4 - manager intermediate (current) use of insulin"
[2025-07-14] MEDS: FAMOTIDINE 20MG IV PUSH 20 MG/5 ML SYR IV STA (14:15)
[2025-07-14] MEDS: PANTOprazole 40 MG/10 ML SYR IV ONE (14:18)
[2025-07-14] MEDS ORDERED: MELATONIN 3 MG TAB PO PRN (17:39)
[2025-07-14] MEDS ORDERED: DEXTROSE 50% 50 ML SYRINGE IV PRN (17:39)
[2025-07-14] MEDS ORDERED: GLUCAGON FOR INJ 1 MG VIAL SQ PRN (17:39)
[2025-07-14] MEDS ORDERED: GLUCOSE 40% GEL 15 GM TUBE PO PRN (17:39)
[2025-07-14] MEDS ORDERED: CARBOHYDRATES FOR HYPOGLYCEMIA PO PRN (17:39)
[2025-07-14] MEDS ORDERED: GLUCOSE 10 TAB/TUBE PO PRN (17:39)
[2025-07-14] MEDS ORDERED: POLYETHYLENE (MIRALAX) 17 GM PACK PO PRN (17:39)
[2025-07-14] MEDS: ONDANSETRON INJ 2 MG/ML 2 ML VIAL IV PRN (18:14)
[2025-07-14] MEDS: ACETAMINOPHEN 325 MG TAB PO PRN (18:15)
[2025-07-14] MEDS: LACTATED RINGER'S 1,000 ML IV SCH (18:23)
[2025-07-14] MEDS: cefTRIAXone SODIUM 2,000 MG/50 ML BAG IV SCH (19:22)
[2025-07-14] MEDS: LANTUS PER UNIT CHARGE SQ SCH (22:17)
[2025-07-15] MEDS: PROCHLORPERAZINE 5 MG in SYRINGE 4 ML IV ONE (05:21)
[2025-07-15 06:38] LABS: Hematocrit (blood only) 36.3 % (37.0-47.0); Hemoglobin 11.6 g/dl (12.0-16.0); Mean Corpuscular Hemoglobin 26.7 pg (25.0-34.0); Mean Corpuscular Volume 83.6 fL (80.0-100.0); Platelet Count 262 K/uL (130-400); RDW Standard Deviation 44.8 fL (36.4-46.3); Red Blood Count 4.34 M/uL (4.20-5.40); White Blood Count 10.42 K/ul (4.8-10.8)
[2025-07-15 07:02] LABS: Alanine Aminotransferase 10.0 U/L (7-52); Alkaline Phosphatase 59.0 U/L (34-104); Anion Gap 7.0 (3-11); Bilirubin,Total 1.1 mg/dl (0.2-1.0); Blood Urea Nitrogen 30.0 mg/dl (6-23); Calcium 8.5 mg/dl (8.6-10.3); Carbon Dioxide 22.0 mmol/L (21-32); Chloride 109.0 mmol/L (98-107); Creatinine Clr Calc Pharmacy 32.6 ml/min; Glucose 94.0 mg/dl (70-99(Fasting)); Potassium 3.9 mmol/L (3.5-5.1); Sodium 138.0 mmol/L (136-145); Total Protein 6.3 gm/dl (6.0-8.3)
[2025-07-15 07:59] VITALS: TEMP 97.5; O2SAT 96
[2025-07-15 09:53] VITALS: BP 159/80; PULSE 75; RESP 18
[2025-07-15] MEDS: ATORVASTATIN 40 MG TAB PO SCH (09:53)
[2025-07-15] MEDS: METOPROLOL SUCC 50MG EXT REL TAB PO SCH (09:53)
--- NOTE | 2025-07-15 10:21 | Discharge Summary ---
"Discharge Summary Date of Service July 15, 2025 Principal Dx & Hospital Course #1 = Principal Diagnosis (1) Acute UTI: (2) Bilateral hydronephrosis: (3) T2DM (type 2 diabetes mellitus): (4) Hypertension: Plan Patient is a 70-year-old female with a past medical history of type II DM, DVT no longer on Eliquis, HTN, CABG. Patient came into the ED after nausea and abd pain after recent Voiding cystourethrogram. Initial eval with elevated lactate improved with IV fluids, UA concerning for infection and CT A/P with stable hydronephrosis. Admitted for IV abx. ##UTI | BL hydronephrosis | questionable CKD- with hx of bilateral hydronephrosis, CTAP with no significant change in BL hydronephrosis since CT of 07/04/25, no calculi, bladder with moderate distention. Follows with urology, recent course of cefepime/cipro for UTI and outpatient Voiding cystourethrogram 07/12. straight catheterized for 600ml of urine in ED. >UA with 3+LE, pending culture from straight cath in ED >BC still pending >leukocytosis resolved with WBC trend to 10.42 >s/p Cefipime 2000mg IV in ED , no concern for MDRO, deescalated to Ceftriaxone 2g IV Q24H (received one dose during hospitalization), d/c with cephalexin 500mg po TID for three days >s/p NSS 1 liter bolus in ED, LR @ 125ml/hr during hospitalization, tolerating oral fluids with some intermittent nausea>no reported emesis, will supply with prescription for Zofran upon d/c >PVRs during hospitalization reflect inadequate emptying. +reports of suprapubic discomfort with voiding trials requiring indwelling Chavez insertion >verbal consultation with CRIMINAL JUSTICE PROGRAM DIRECTOR from urology with plan to d/c with Chavez, 3 day course of antibiotic with continuation of Macrobid daily prophylactically thereafter and follow up with [facility] for further management upon discharge Unclear Cr baseline - concern for CKD being followed in the OP setting with [facility] provider. Cr trending with improvement>1.64 to 1.39 (patient has scheduled nephrology appt for f/u as outpatient) ##T2DM >HBA1C 07/05/25 at 6.5. Home meds: Lantus 6u BID, and monjuaro - HELD >reduce Lantus to 4units BID from home regimen of 6 units BID as blood sugar trending below 100 at discharge ##HTN >normotensive during hospitalization >cont home Metoprolol 50mg daily Dispo: discharge home Admission HPI Per Admitting Provider Patient is a 70 year old female with PMHx of recurrent UTIs, elevated serum creatinine, CAD with hx of CABG, type 2 diabetes, HTN, bilateral hydronephrosis, LISA, DVT with Eliquis course of 6m (completed) and urinary incontinence that presents with c/o vomiting and chills since late yesterday afternoon post voiding cystourethrogram procedure she had done secondary to hx of bilateral hydronephrosis/frequent UTIs for further evaluation. Has voided since procedure but feels she has to strain to empty bladder. Unable to tolerate food/liquids. +chills/diaphoresis. Reports of right sided abdominal discomfort-denies flank pain. Reports concerns related to residual dye being present in her bladder since procedure. Did start taking prophylactic Macrobid daily per urology recs. ED course of treatment: >1L of NSS >Zofran 4mg IV >Ofirmev 1 gram IV >Morphine sulfate 2mg IV >Phenergan 6.25mg IV >Hydromorphone 0.5mg IV >Cefepime 2000mg IV She is following with [facility]. She wishes to be a DNR/DNI. Discharge Exam General: NAD, VS as above Resp: normal respiratory effort, lungs clear to auscultation CV: RRR, no murmur Abd: normal bowel sounds, non tender, no hepatosplenomegaly Neuro: A&O x3 Skin: intact, no lesions noted Discharge Plan Discharge Items Patient Disposition: Home - Self-Care Reason For Visit: UTI Discharge Diagnosis: UTI Condition on Discharge: Fair Activity: Resume your previous activity Bathing: No limitations Non-emergency contact: Primary Care Provider Call non-emergency contact if: you have any medication questions, your symptoms worsen, your pain is not controlled, you have a fever and your temperature is above 101 Follow-up/Referrals: Rosie Lowe DO [Primary Care Provider] - 07/26/25 3:00 pm Sj Mckeon MD [Physician] - 07/21/25 1:30 pm Diet: Carb Consistent or DM2 Addtl Attending Provider Instructions: Medications: Your medication list has been reviewed and reconciled upon discharge to ensure accuracy and continuity of care. An updated list of all your medications is included with your hospital discharge paperwork. Please review this list closely, and make note of any changes. We sent a new medication called to your pharmacy called Cephalexin 500mg three times daily for three days then you can resume your Macrobid 100mg daily as prescribed previously from urology. You will receive your first dose of Cephalexin today in the hospital. Ensure you are taking the new antibiotic with food to avoid any gastrointenstinal side effects such as nausea. We have also sent in a prescription for Zofran to take as needed for nausea every 6 hours. Your Lantus insulin dosing has been decreased to 4 units twice daily as your blood sugar was lower in the hospital. Follow up with your family doctor for further management. Take your medications as instructed; do not skip a dose of your medicines. Make sure all of your doctors know every medicine you are taking (including zqnb-yxp-mgamyyk medicines, vitamins, and supplements). Call your primary care provider before taking any new medicines (including over- the-counter medicines, vitamins, and supplements), because some of these may interact with your current medications, or may make your symptoms worse. Tell your primary care provider if you cannot afford your medications. Activity: You can do normal everyday activities as your body allows. Take rest breaks if you feel tired. Do not overexert. Stop activity if you have pain, shortness of breath or feel dizzy. Follow-up appointments: Make an appointment with your primary care physician within one week of discharge. A copy of this summary will be sent to them. Every time you see your primary care physician, or any other doctor, bring your medication list, and a list of questions. We have consulted urology with [facility] as you are already established for an appointment in the office sooner as you now have a Chavez catheter and will need monitoring of this. Please reach out to their office on 07/19/25 if you have not heard from the office to secure an appointment. Please make sure you keep your follow-up with nephrology. You have blood cultures pending at the time of discharge, they are negative at 24 hours but take 5 days to get final results. If they turn positive you will be notified, you can also check in with your PCP or the [facility] portal. However, given your symptoms I do not expect they will be positive. CONTACT YOUR PRIMARY CARE PROVIDER if you experience any of the following: Shortness of breath or difficulty breathing Fevers or chills Feeling tired with normal activity or experiencing dizziness or fainting Difficulty following your treatment plan, or difficulty taking medications CALL 911 OR GO TO THE EMERGENCY DEPARTMENT if you experience any of the following: Severe abdominal pain or nausea/vomiting Severe chest pain, or chest pain that radiates (moves) to your jaw or arm Sudden, severe shortness of breath or difficulty breathing Thank you for allowing us to participate in your care. Pending Studies at Discharge: Yes Studies:: Urine culture, blood cultures Stand-Alone Forms: [facility], Smoking Cessation Medications and DC Order Prescriptions: New cephalexin 500 mg capsule 500 mg PO TID 3 Days Qty: 9 0RF ondansetron 4 mg tablet,disintegrating 4 mg PO Q6H PRN (Reason: nausea and vomiting) Qty: 30 0RF Continued atorvastatin 80 mg tablet 80 mg PO DAILY Mounjaro 2.5 mg/0.5 mL pen injector 2.5 mg SUBCUT WK Rx Instructions: THURSDAYS metoprolol succinate 25 mg tablet extended release 24 hr 50 mg PO DAILY Alive Women's 50 Plus Ultra MV 240-150 mcg Tablet 1 tab PO DAILY Changed insulin glargine [Lantus Solostar U-100 Insulin] 100 unit/mL (3 mL) Insulin Pen 4 unit SUBCUT BID Qty: 0 0RF Held nitrofurantoin monohyd/m-cryst [Macrobid] 100 mg capsule 100 mg PO DAILY 30 Days Qty: 30 3RF Hold Instructions: Resume on 07/19/25. Please hold until finished with Keflex Rx Instructions: must administer with a meal/food, take for continuous antibiotic prophylaxis Discharge Orders: Discharge Order (Routine); Ordered 07/15/25 Ordered By: Radha Olivas/Other Patient Handouts: Urinary Catheter Bag Empty Clean, Leg Bag Care Dc Admission Data Admit Date/Time: 07/14/25 14:52 Attending Provider: Guillermina Frazier Admit Provider: Guillermina Frazier Primary Care Provider: Rosie Lowe Other Providers: Guillermina Frazier Other Interventions: Discharge Summary Assessment (RN) Last Done: 07/15/25 12:03 Hospital Stay Data Consultations 07/14/25 12:52 ED Decision to Admit Stat Diagnostic Imagining Performed 07/14/25 09:54 CT abd pelvis wo con Stat Pending Results Patient Have Any Pending Studies at Discharge: Yes Discharge Instructions Given to Patient (Per Discharging Provider) Medications: Your medication list has been reviewed and reconciled upon discharge to ensure accuracy and continuity of care. An updated list of all your medications is included with your hospital discharge paperwork. Please review this list closely, and make note of any changes. We sent a new medication called to your pharmacy called Cephalexin 500mg three times daily for three days then you can resume your Macrobid 100mg daily as prescribed previously from urology. You will receive your first dose of Cephalexin today in the hospital. Ensure you are taking the new antibiotic with food to avoid any gastrointenstinal side effects such as nausea. We have also sent in a prescription for Zofran to take as needed for nausea every 6 hours. Your Lantus insulin dosing has been decreased to 4 units twice daily as your blood sugar was lower in the hospital. Follow up with your family doctor for further management. Take your medications as instructed; do not skip a dose of your medicines. Make sure all of your doctors know every medicine you are taking (including buju-muo-ffoqhaz medicines, vitamins, and supplements). Call your primary care provider before taking any new medicines (including over- the-counter medicines, vitamins, and supplements), because some of these may interact with your current medications, or may make your symptoms worse. Tell your primary care provider if you cannot afford your medications. Activity: You can do normal everyday activities as your body allows. Take rest breaks if you feel tired. Do not overexert. Stop activity if you have pain, shortness of breath or feel dizzy. Follow-up appointments: Make an appointment with your primary care physician within one week of discharge. A copy of this summary will be sent to them. Every time you see your primary care physician, or any other doctor, bring your medication list, and a list of questions. We have consulted urology with [facility] as you are already established for an appointment in the office sooner as you now have a Chavez catheter and will need monitoring of this. Please reach out to their office on 07/19/25 if you have not heard from the office to secure an appointment. Please make sure you keep your follow-up with nephrology. You have blood cultures pending at the time of discharge, they are negative at 24 hours but take 5 days to get final results. If they turn positive you will be notified, you can also check in with your PCP or the [facility] portal. However, given your symptoms I do not expect they will be positive. CONTACT YOUR PRIMARY CARE PROVIDER if you experience any of the following: Shortness of breath or difficulty breathing Fevers or chills Feeling tired with normal activity or experiencing dizziness or fainting Difficulty following your treatment plan, or difficulty taking medications CALL 911 OR GO TO THE EMERGENCY DEPARTMENT if you experience any of the following: Severe abdominal pain or nausea/vomiting Severe chest pain, or chest pain that radiates (moves) to your jaw or arm Sudden, severe shortness of breath or difficulty breathing Thank you for allowing us to participate in your care. Total Time Total Time Spent Total Time Spent (In Minutes): 45 minutes Total Time Includes: Examination of the Patient, Discharge Planning, Medication Reconciliation, Communication With Other Providers and Other Coding Level of Care Code 87018 INP/OBS DISCH >30 MIN Diagnoses Acute UTI N39.0 Bilateral hydronephrosis N13.30 Type 2 diabetes mellitus without complication, with long-term current use of insulin E11.9; Z79.4 Diabetes mellitus complication status: without complication Diabetes mellitus senior care insulin use: with intermediate accountant use Hypertension I10"
--- NOTE | 2025-07-16 06:27 | Electrocardiogram Report ---
Test Reason : Blood Pressure : */* mmHG Vent. Rate : 103 BPM Atrial Rate : 103 BPM P-R Int : 130 ms QRS Dur : 92 ms QT Int : 354 ms P-R-T Axes : 59 21 106 degrees QTcB Int : 463 ms Sinus tachycardia Septal infarct (cited on or before 05-Jul-2025) Inferior infarct (cited on or before 05-Jul-2025) Abnormal ECG When compared with ECG of 05-Jul-2025 05:22, No significant change Confirmed by Tao Ignacio ([id number]) on 07/16/2025 6:27:02 AM Referred By: Confirmed By: Tao Ignacio
== END 2025-07-15 12:55 | disposition home or self-care (01) ==
LOC: ED 09:40 → 3W 09:40

== ENCOUNTER 2025-09-12 10:25 | Inpatient (IN) ==
[2025-09-12] MEDS: SODIUM CHLORIDE 0.9% 1,000 ML IV STA (11:25)
[2025-09-12] MEDS: ONDANSETRON INJ 2 MG/ML 2 ML VIAL IV STA ×2 (11:26→16:06)
[2025-09-12 11:56] LABS: Hematocrit (blood only) 41.2 % (37.0-47.0); Hemoglobin 13.7 g/dL (12.0-16.0); Immature Granulocytes # (auto) 0.03 K/uL (0.01-0.20); Immature Granulocytes % (auto) 0.3 %; Mean Corpuscular Hemoglobin 27.7 pg (25.0-34.0); Mean Corpuscular Volume 83.4 fL (80.0-100.0); Platelet Count 364 K/uL (130-400); RDW Standard Deviation 42.0 fL (36.4-46.3); Red Blood Count 4.94 M/uL (4.20-5.40); White Blood Count 9.44 K/ul (4.8-10.8)
[2025-09-12 12:11] LABS: Alanine Aminotransferase 9 U/L (7-52); Albumin Globulin Ratio 0.8 (0.9-2); Albumin Level 3.7 gm/dl (3.4-5.0); Alkaline Phosphatase 115 U/L (34-104); Anion Gap 10 (3-11); Bilirubin,Total 0.8 mg/dl (0.2-1.0); Blood Urea Nitrogen 26 mg/dl (6-23); Calcium 9.6 mg/dl (8.6-10.3); Carbon Dioxide 22 mmol/L (21-32); Chloride 105 mmol/L (98-107); Globulin 4.7 gm/dl (2.5-4.0); Glucose 122 mg/dl (70-99(Fasting)); Lipase 18 U/L (11-82); Potassium 4.3 mmol/L (3.5-5.1); Sodium 137 mmol/L (136-145); Total Protein 8.4 gm/dl (6.0-8.3)
[2025-09-12 12:14] LABS: Appearance Urine Cloudy (Clear); Bacteria Urine Automated 2+ (None Seen); Cast Urine Automated 0-2 /lpf (0-2); Epithelial Cell Urine Auto 0-2 /hpf (0-2); Glucose Urine UA Negative (Negative); RBC Urine Automated 0-2 /hpf (0-2); WBC Urine Automated >50 /hpf (0-5)
--- NOTE | 2025-09-12 13:02 | CT Scan Report ---
CT SCAN OF THE ABDOMEN AND PELVIS WITH IV CONTRAST CLINICAL HISTORY: Generalized abdominal pain. COMPARISON STUDY: Abdominal CT dated 07/14/2025. TECHNIQUE: Following the IV administration of 93 cc of Optiray 320, CT scan of the abdomen and pelvi s is performed from the lung bases to the proximal femora. Images are reviewed in the axial, sagittal , and coronal planes. IV contrast was administered without complication. A dose lowering technique wa s utilized adhering to the principles of ALARA. CT DOSE: 764.4 mGy.cm FINDINGS: Lung bases: The patient is status post midline sternotomy. The heart is enlarged and without pericard ial effusion. The coronary arteries are densely calcified. Metallic densities are again seen in the l eft ventricle. There is a small hiatal hernia. There is bibasilar scarring/atelectasis. Trace pleural effusions are observed. There is no airspace consolidation typical for pneumonia. Liver: The contrast-enhanced liver is normal in size, contour, and attenuation. There is no intrahepa tic biliary ductal dilatation. The hepatic veins and portal veins are patent. Gallbladder: Surgically absent noting clips in the gallbladder fossa. Spleen: Normal in size and attenuation. Pancreas: Unremarkable. Adrenal glands: Unremarkable. Kidneys: The contrast enhanced kidneys are normal in size. There is moderate to severe bilateral hydr oureteronephrosis. Both ureters are dilated to the level of the bladder, with no obstructing stone or lesion seen. The kidneys enhance symmetrically. A 14 mm cyst is noted on the left. Abdominal vasculature: The abdominal aorta is normal in course and caliber noting moderate to advance d atherosclerotic calcification. Bowel: There is moderate to advanced diverticulosis of the left colon without CT evidence of acute di verticulitis. The appendix is well-visualized and normal. Peritoneum: There is no intraperitoneal free air or abdominal ascites. Lymphadenopathy: None. Pelvic viscera: The bladder is distended and appears thick-walled with mild pericystic infiltration. There is gas within the cervical canal. The uterus is otherwise normal as imaged. No adnexal lesion i s seen. Skeletal structures: The skeletal structures are osteopenic. Mild degenerative change is noted in the spine. No lytic or blastic lesions are seen. IMPRESSION: 1. The bladder is distended and appears thick-walled with mild pericystic infiltration. Correlated wi clinical findings and urinalysis. 2. Moderate to severe bilateral hydroureteronephrosis is similar to 07/14/2025. The ureters are dilate d to the level of the bladder with no obstructing stone or lesion seen. Follow-up with urology is adv ised. 3. Colonic diverticulosis without CT evidence of acute diverticulitis. 4. Cardiomegaly noting coronary artery atherosclerosis. 5. Additional findings as above. ACT 112: Negative or not required by law. Electronically signed by: Keith Bentley M.D. 09/12/2025 1:01 PM
--- NOTE | 2025-09-12 14:20 | Emergency Department Note ---
Impression & Plan Recurrent urinary tract infection, Hydroureteronephrosis, UTI (urinary tract infection) ED Provider Note CHIEF COMPLAINT: Nausea, vomiting, abdominal pain HISTORY OF PRESENTING ILLNESS: Patient is a 7-year-old female presents emergency department today for complaints of nausea, vomiting, abdominal pain that started last night around 8 PM. She reports since then the pain has just continued to increase. She denies any trauma or injury. She does have a history of ureteral reflux. She does report urgency and frequency but denies any burning. She is denying any fevers or chills but just feels ill. She states that she has been on a chronic antibiotic but is unsure of the name of it. REVIEW OF SYSTEMS: See HPI for pertinent positives and pertinent negatives. ALLERGIES: See below MEDICATIONS: See below PAST MEDICAL HISTORY: See below PHYSICAL EXAM: VITALS: Vitals are noted on the nurse's note and reviewed by myself. GENERAL: Non toxic, in no acute distress, non-diaphoretic. SKIN: Capillary refill <2 sec. HEART: Regular rate and rhythm without murmurs gallops or rubs. LUNGS: Clear to auscultation bilaterally without wheezes, rales or rhonchi. No retractions or accessory muscle use. ABDOMEN: Positive bowel sounds x 4. Normal tympanic percussion. Soft, nontender to palpation. No masses or hepatosplenomegaly. Brown sign negative. No CVA tenderness. No guarding, rigidity, or rebound tenderness. No focal RLQ or LLQ tenderness. MUSCULOSKELETAL: No gross musculoskeletal defects. NEURO: Patient was alert and oriented. No focal neurological deficits. DIFFERENTIAL DIAGNOSIS: Differential diagnosis includes appendicitis, diverticulitis, constipation, gastroenteritis, bowel obstruction, cholecystitis, appendicitis, inflammatory bowel disease, renal colic, PUD, biliary pathology, pancreatitis, mesenteric ischemia, aortic pathology, infection, genitourinary, UTI, perforated viscus, among others. ED COURSE AND MEDICAL DECISION MAKING: HISTORY FROM INDEPENDENT HISTORIAN: History was provided by the patient and her who is at bedside and secondary historian. MONITOR: Continuous court recording monitor: Order was placed for continuous court recording monitor. Patient was placed on the court recording monitor and continuous pulse ox. Patient was noted to be in normal sinus rhythm at an initial rate of 86 bpm per my interpretation. INTERPRETATION OF LABS: I interpreted the labs with full lab results as below in the lab section of this note. Laboratory results pertinent to the emergent complaint are discussed in the MDM section below. The patient was advised to follow up with their PCP and/or specialist(s) for further outpatient monitoring and management of any abnormal results. INTERPRETATION OF IMAGING: Imaging studies were interpreted by myself and read by radiology as per the imaging section of this note. The patient was advised to follow up with their PCP and/or specialist(s) for further outpatient management of any non-emergent abnormal findings. CHRONIC MEDICAL/SOCIAL CONDITIONS AFFECTING CARE: No social concerns were identified as barriers to patients care. CONSULTATIONS: I had a meaningful discussion about this patient with Dr. Rojo who agrees with my assessment and the treatment plan. I also consulted with Dr. Avila, hospitalist for admission and the patient was accepted. SUMMARY: I examined the patient for complaints of abdominal pain. A physical exam and history were performed. Nursing notes, EMR, and medication list were personally reviewed. CBC showed no leukocytosis, anemia, thrombocytopenia. CMP showed no emergent findings but a creatinine of 1.58, BUN of 26, glucose 122, alkaline phosphatase 115. Urinalysis was positive for blood, leukocytes, bacteria. Blood cultures were ordered prior to initiation of antibiotics. CT of the abdomen and pelvis did show bladder distention and an apparent thick-walled with mild pericystic infiltration. There is moderate to severe bilateral hydroureteronephrosis. Patient was ordered Rocephin 2 g IV. I did discuss with the patient admission versus discharge and the patient does not feel well enough to be discharged home. I did consult with Dr. Avila for admission to the hospital and the patient was accepted. DIAGNOSIS: Bilateral hydroureteronephrosis, UTI, ureteral reflux TREATMENT PLAN/DISCHARGE INSTRUCTIONS: Admit to hospitalist services. The chart was completed utilizing [employer] Speech voice recognition software.Grammatical errors, random word insertions, pronoun errors, and incomplete sentences are an occasional consequence of this system due to software limitations, ambient noise, and hardware issues.Any formal questions or concerns about the content, text, or information contained within the body of this dictation should be directly addressed to the physician for clarification. Past Med/Surg History Problem List UTI (urinary tract infection) (Acute) Hydroureteronephrosis (Acute) Anemia Ureteral reflux (Acute) Elevated troponin (Acute) Elevated lactic acid level (Acute) Leukocytosis (Acute) Vomiting (Acute) Acute urinary retention (Acute) Urinary incontinence CAD (coronary artery disease) Recurrent urinary tract infection (Acute) Hypertension Medical History T2DM (type 2 diabetes mellitus) Bilateral hydronephrosis History of DVT (deep vein thrombosis) Surgical History History of coronary artery bypass graft H/O heart surgery triple bypass CABG S/P urethral surgery Hx of cholecystectomy 1991 Hx of tonsillectomy 1960 Family History Father Diabetes Heart disease Hypertension Sister Diabetes Brother Diabetes Denies family history of Ovarian cancer Prostate cancer Lung cancer Colorectal cancer Stroke Social History Smoking Status: Never smoker Second Hand Exposure: No; Do You Dip or Chew Tobacco: No; Hx Alcohol Use: No Hx Substance Use: No Preferred Language: Nauruan Communication Ability: Effective Visual Impairment: No Limitations Hearing Ability: Normal High 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 Required: No Beliefs That Will Affect Care: None marital status: Current Living Situation: Spouse Current Living Situation Comment: current occupational status: retired How many Children do You have: 4 Feels Safe at Home: Yes Safety Concerns: Feels Safe At This Time Childhood Exposure to Second-Hand Smoke: No Diet: other Diet Comment: no carb diet caffeine: Yes during the past year weight has: decreased > 10 lbs Dental Care, Regularly: Yes Physical Activity Frequency: Daily Seatbelt Use: always Sunscreen Use: Yes Assistive Devices: None Allergies Allergies Allergy/AdvReac Type Severity Reaction Status Date / Time banana Allergy Severe Vomiting Unverified 07/27/25 09:01 Beef Containing Products Allergy Severe Vomiting Unverified 07/27/25 09:01 codeine Allergy Severe IV--WHOLE Verified 07/27/25 09:01 ARM SWELLED, SHORT OF BREATH corn Allergy Severe Vomiting Unverified 07/27/25 09:01 Milk Containing Products Allergy Severe Vomiting Unverified 07/27/25 09:01 (Dairy) morphine Allergy Severe IV--WHOLE Verified 07/27/25 09:01 ARM SWELLED, SHORT OF BREATH peanut Allergy Severe Hives Verified 09/12/25 17:15 Penicillins Allergy Intermediate Rash Verified 07/27/25 09:01 Sulfa (Sulfonamide Allergy Intermediate Rash Verified 07/27/25 09:01 Antibiotics) tetracycline Allergy Intermediate Rash Verified 07/27/25 09:01 Home Meds Home Medications Medication Instructions Recorded Confirmed tirzepatide 2.5 mg/0.5 mL 2.5 mg subcut WK 07/04/25 09/12/25 subcutaneous pen injector (Mounjaro) [id number] acid 240 1 tab PO DAILY 07/14/25 09/12/25 mcg-vit K1 150 mcg-herb 357 tablet (Alive Women's 50 Plus Ultra Multivitamin) Previous Rx's Medication Instructions Recorded insulin glargine 100 unit/mL (3 4 unit (0.04 mL) subcut BID #0 mL 07/15/25 mL) subcutaneous pen (Lantus Solostar U-100 Insulin) estradiol 0.01% (0.1 mg/gram) 0.5 g vaginal DAILY #42.5 grams 07/27/25 vaginal cream (Estrace) Results & Data (ED) Vital Signs Vital Signs - 24 hr 09/12/25 10:39 Temperature 36.7 C Temperature Source Temporal Artery Scan Pulse Rate 102 H Respiratory Rate 18 Blood Pressure 137/84 Blood Pressure Mean 101 Pulse Oximetry 98 Oxygen Delivery Method Room Air Sepsis New/Unexplained Change in Mental Status No Sepsis Action Taken by Nursing No Action Required Laboratory Data 09/12/25 11:20 09/12/25 11:20 Lab Results 09/12/25 Range/Units 11:20 WBC 9.44 (4.8-10.8) K/ul RBC 4.94 (4.20-5.40) M/uL Hgb 13.7 (12.0-16.0) g/dL Hct 41.2 (37.0-47.0) % MCV 83.4 (80.0-100.0) fL MCH 27.7 (25.0-34.0) pg MCHC 33.3 (32.0-36.0) g/dL RDW Std Deviation 42.0 (36.4-46.3) fL RDW Coeff of Maria A 13.7 (11.5-14.5) % Plt Count 364 (130-400) K/uL MPV 10.2 (9.4-12.4) fL Immature Gran % (Auto) 0.3 % Neut % (Auto) 72.6 % Lymph % (Auto) 20.0 % [place] % (Auto) 5.7 % Eos % (Auto) 1.0 % Baso % (Auto) 0.4 % Neut # (Auto) 6.85 H (1.40-6.50) K/uL Lymph # (Auto) 1.89 (1.20-3.40) K/uL Fergus # (Auto) 0.54 (0.11-0.59) K/uL Eos # (Auto) 0.09 (0.00-0.50) K/uL Baso # (Auto) 0.04 (0.00-0.20) K/uL Immature Gran # (Auto) 0.03 (0.01-0.20) K/uL Sodium 137 (136-145) mmol/L Potassium 4.3 (3.5-5.1) mmol/L Chloride 105 (98-107) mmol/L Carbon Dioxide 22 (21-32) mmol/L Anion Gap 10 (3-11) BUN 26 H (6-23) mg/dl Creatinine 1.58 H (0.6-1.2) mg/dl Est Cr Clr Drug Dosing Not Reportable eGFR 35.01 BUN/Creatinine Ratio 16.5 (10-20) Glucose 122 H (70-99(Fasting)) mg/dl Calcium 9.6 (8.6-10.3) mg/dl Total Bilirubin 0.8 (0.2-1.0) mg/dl AST 14 (13-39) U/L ALT 9 (7-52) U/L Alkaline Phosphatase 115 H (34-104) U/L Total Protein 8.4 H (6.0-8.3) gm/dl Albumin 3.7 (3.4-5.0) gm/dl Globulin 4.7 H (2.5-4.0) gm/dl Albumin/Globulin Ratio 0.8 L (0.9-2) Lipase 18 (11-82) U/L Urine Color Yellow Urine Appearance Cloudy A (Clear) Urine pH 6.0 (4.5-7.5) Ur Specific [place] 1.009 (1.000-1.030) Urine Protein 2+ H (Negative) Urine Glucose (UA) Negative (Negative) Urine Ketones Negative (Negative) Urine Blood 1+ H (Negative) Urine Nitrite Negative (Negative) Urine Bilirubin Negative (Negative) Urine Urobilinogen Negative (Negative) Ur Leukocyte Esterase 3+ H (Negative) Urine WBC (Auto) >50 H (0-5) /hpf Urine RBC (Auto) 0-2 (0-2) /hpf U Hyaline Cast (Auto) 0-2 (0-2) /lpf U Epithel Cells (Auto) 0-2 (0-2) /hpf Urine Bacteria (Auto) 2+ H (None Seen) Urine Comment Administered Medications Insulin Aspart (Insulin Aspart Per Unit Charge) 0 units SC ACHS PORTILLO Stop: 10/12/25 16:50 Last Admin: 09/12/25 17:08 Dose: Not Given Documented By: [facility] Discontinued Medications Sodium Chloride (Nss) 1,000 mls @ 999 mls/hr IV .Q1H1M STA Stop: 09/12/25 12:06 Last Infusion: 09/12/25 12:53 Dose: Infused Documented By: Admin: 09/12/25 11:25 Dose: 999 mls/hr Documented By: ALEIDA Ceftriaxone Sodium (Rocephin) 2,000 mg in 50 mls @ 100 mls/hr IV NOW STA Stop: 09/12/25 14:44 Last Infusion: 09/12/25 16:51 Dose: Infused Documented By: Admin: 09/12/25 16:12 Dose: 100 mls/hr Documented By: ALEIDA Acetaminophen (Ofirmev) 1,000 mg in 100 mls @ 400 mls/hr IV NOW STA Stop: 09/12/25 15:25 Last Infusion: 09/12/25 16:06 Dose: Infused Documented By: Admin: 09/12/25 15:18 Dose: 400 mls/hr Documented By: BHAKTI Famotidine (Pepcid 20mg Iv Push) 20 mg in 5 mls @ 2.5 mls/min IV NOW STA Stop: 09/12/25 15:51 Last Admin: 09/12/25 16:06 Dose: 2.5 mls/min Documented By: ALEIDA Ondansetron HCl (Ondansetron Inj 2 Mg/Ml 2 Ml Vial) 4 mg IV NOW STA Stop: 09/12/25 11:07 Last Admin: 09/12/25 11:26 Dose: 4 mg Documented By: ALEIDA Ondansetron HCl (Ondansetron Inj 2 Mg/Ml 2 Ml Vial) 4 mg IV NOW STA Stop: 09/12/25 15:51 Last Admin: 09/12/25 16:06 Dose: 4 mg Documented By: ALEIDA Imaging Data Radiologist's Impression: Abdomen/Pelvis CT 09/12/25 11:07 CT SCAN OF THE ABDOMEN AND PELVIS WITH IV CONTRAST CLINICAL HISTORY: Generalized abdominal pain. COMPARISON STUDY: Abdominal CT dated 07/14/2025. TECHNIQUE: Following the IV administration of 93 cc of Optiray 320, CT scan of the abdomen and pelvis is performed from the lung bases to the proximal femora. Images are reviewed in the axial, sagittal, and coronal planes. IV contrast was administered without complication. A dose lowering technique was utilized adhering to the principles of ALARA. CT DOSE: 764.4 mGy.cm FINDINGS: Lung bases: The patient is status post midline sternotomy. The heart is enlarged and without pericardial effusion. The coronary arteries are densely calcified. Metallic densities are again seen in the left ventricle. There is a small hiatal hernia. There is bibasilar scarring/atelectasis. Trace pleural effusions are observed. There is no airspace consolidation typical for pneumonia. Liver: The contrast-enhanced liver is normal in size, contour, and attenuation. There is no intrahepatic biliary ductal dilatation. The hepatic veins and portal veins are patent. Gallbladder: Surgically absent noting clips in the gallbladder fossa. Spleen: Normal in size and attenuation. Pancreas: Unremarkable. Adrenal glands: Unremarkable. Kidneys: The contrast enhanced kidneys are normal in size. There is moderate to severe bilateral hydroureteronephrosis. Both ureters are dilated to the level of the bladder, with no obstructing stone or lesion seen. The kidneys enhance symmetrically. A 14 mm cyst is noted on the left. Abdominal vasculature: The abdominal aorta is normal in course and caliber noting moderate to advanced atherosclerotic calcification. Bowel: There is moderate to advanced diverticulosis of the left colon without CT evidence of acute diverticulitis. The appendix is well-visualized and normal. Peritoneum: There is no intraperitoneal free air or abdominal ascites. Lymphadenopathy: None. Pelvic viscera: The bladder is distended and appears thick-walled with mild pericystic infiltration. There is gas within the cervical canal. The uterus is otherwise normal as imaged. No adnexal lesion is seen. Skeletal structures: The skeletal structures are osteopenic. Mild degenerative change is noted in the spine. No lytic or blastic lesions are seen. IMPRESSION: 1. The bladder is distended and appears thick-walled with mild pericystic infiltration. Correlated with clinical findings and urinalysis. 2. Moderate to severe bilateral hydroureteronephrosis is similar to 07/14/2025. The ureters are dilated to the level of the bladder with no obstructing stone or lesion seen. Follow-up with urology is advised. 3. Colonic diverticulosis without CT evidence of acute diverticulitis. 4. Cardiomegaly noting coronary artery atherosclerosis. 5. Additional findings as above. ACT 112: Negative or not required by law. Electronically signed by: Keith Bentley M.D. 09/12/2025 1:01 PM Discharge Plan Visit Data Chief Complaint: Vomiting Stated Complaint: VOMITING, ABD PAIN, BACK PAIN ED Provider: Jv Rojo ED Midlevel Provider: Maryjo Zhang Discharge Problem: Recurrent urinary tract infection, Hydroureteronephrosis, UTI (urinary tract infection) Patient Disposition: Admitted As Inpatient Condition: Good Discharge Instructions Interventions: ED Discharge Assessment Last Done: 09/12/25 16:23 Discharge Problem: UTI (urinary tract infection) Qualifiers: Urinary tract infection type: site unspecified Hematuria presence: without hematuria Qualified Code(s): N39.0 - Urinary tract infection, site not specified
--- NOTE | 2025-09-12 14:44 | History & Physical Report ---
Date of Service September 12, 2025 Assessment & Plan (1) UTI (urinary tract infection): (2) Hydroureteronephrosis: (3) Vomiting: Plan This patient is a 70-year-old female with a history of recurrent UTI, chronic moderate-severe bilateral hydroureteronephrosis, chronic VUR and chronic bladder outlet obstruction, CAD s/p CABG, CKD stage III, DM 2, and DVT, who presents with nausea/vomiting, lower abdominal pain that radiated through to her lower back, and generally feeling poorly since the night before. She believes that she had low-grade fevers at home. Denies dysuria or hematuria. She reports she vomited multiple times, nonbloody emesis. In the ED, she had a CT A/P which showed stable moderate-severe hydroureteronephrosis, distended bladder which was thick walled with pericystic infiltration, and her UA was abnormal consistent with UTI. She did not have any signs of sepsis. Her creatinine was around her baseline at 1.5, alkaline phosphatase mildly elevated at 115, and otherwise, laboratory values were unremarkable. She was given a dose of IV ceftriaxone as well as some IV fluids and Zofran. She did not feel well enough to return home. She will be admitted for recurrent UTI in the setting of chronic bladder outlet obstruction and severe bilateral hydroureteronephrosis. #UTI/chronic moderate-severe bilateral hydroureteronephrosis/chronic bladder outlet obstruction/VUR/abdominal pain-patient has recently followed with urology and was referred to reconstructive urology at [facility] who recommended that she perform self catheterization and/or have a chronic Chavez catheter. Patient was upset at this visit as she was expecting to discuss ureteral reimplant surgery to prevent reflux, however the reconstructive urologist tried to explain that is her bladder outlet obstruction that is the main problem. She does not want to consider recurrent self-catheterization or chronic Chavez catheter at this point. She is amenable to catheterization in the hospital if needed for excessive PVRs - Admit to medical/surgical unit - Continue ceftriaxone for UTI - Follow urine culture, blood cultures - Follow bladder scans postvoid every shift and straight cath for PVR greater than 400 mL - She plans to follow-up with urology at [facility] after the holidays to discuss other options for her structural urologic issues - Holding home Macrobid prophylaxis - Continue home estradiol vaginal cream prescribed by urology - Acetaminophen as needed for pain or fever - IV Zofran as needed for nausea-okay to continue heart healthy diet as she is tolerating now - Follow CBC, BMP in the a.m. #CAD s/p CABG-no acute issues - Continue home aspirin, Plavix, atorvastatin, metoprolol #CKD stage III-creatinine around baseline at 1.5 likely secondary to chronic moderate-severe bilateral hydronephrosis and bladder outlet obstruction - Follow BMP - Renally dose medications and avoid nephrotoxins - Follow-up with urology #[id number] as per patient at home on Mounjaro and low doses of Lantus - Continue Lantus - NovoLog supplemental insulin - BSG's and diabetic diet #History of DVT-start heparin SQ 5000 mg every 12 hours, SCDs Disposition-admit to medical/surgical floor DNR/DNI-discussed this extensively with patient who states that these are her wishes even though she thinks that her would disagree with her. She maintains that she would like to be a DNR/DNI regardless of what she thinks his opinion would be on the matter. History of Present Illness Chief Complaint: Fatigue, abdominal pain, nausea/vomiting Primary Care Provider: Rosie Lowe, This patient is a 70-year-old female with a history of recurrent UTI, chronic moderate-severe bilateral hydroureteronephrosis, chronic VUR and chronic bladder outlet obstruction, CAD s/p CABG, CKD stage III, DM 2, and DVT, who presents with nausea/vomiting, lower abdominal pain that radiated through to her lower back, and generally feeling poorly since the night before. She believes that she had low-grade fevers at home. Denies dysuria or hematuria. She reports she vomited multiple times, nonbloody emesis. In the ED, she had a CT A/P which showed stable moderate-severe hydroureteronephrosis, distended bladder which was thick walled with pericystic infiltration, and her UA was abnormal consistent with UTI. She did not have any signs of sepsis. Her creatinine was around her baseline at 1.5, alkaline phosphatase mildly elevated at 115, and otherwise, laboratory values were unremarkable. She was given a dose of IV ceftriaxone as well as some IV fluids and Zofran. She did not feel well enough to return home. She will be admitted for recurrent UTI in the setting of chronic bladder outlet obstruction and severe bilateral hydroureteronephrosis. Allergies Allergy/AdvReac Type Severity Reaction Status Date / Time banana Allergy Severe Vomiting Unverified 07/27/25 09:01 Beef Containing Products Allergy Severe Vomiting Unverified 07/27/25 09:01 codeine Allergy Severe IV--WHOLE Verified 07/27/25 09:01 ARM SWELLED, SHORT OF BREATH corn Allergy Severe Vomiting Unverified 07/27/25 09:01 Milk Containing Products Allergy Severe Vomiting Unverified 07/27/25 09:01 (Dairy) morphine Allergy Severe IV--WHOLE Verified 07/27/25 09:01 ARM SWELLED, SHORT OF BREATH peanut Allergy Severe Hives Verified 09/12/25 17:15 Penicillins Allergy Intermediate Rash Verified 07/27/25 09:01 Sulfa (Sulfonamide Allergy Intermediate Rash Verified 07/27/25 09:01 Antibiotics) tetracycline Allergy Intermediate Rash Verified 07/27/25 09:01 Home Medications Medication Instructions Recorded Confirmed Type tirzepatide 2.5 mg/0.5 mL 2.5 mg subcut WK 07/04/25 09/12/25 History subcutaneous pen injector (Mounjaro) [id number]-[id number]-debpd acid 240 1 tab PO DAILY 07/14/25 09/12/25 History mcg-vit K1 150 mcg-herb 357 tablet (Alive Women's 50 Plus Ultra Multivitamin) insulin glargine 100 unit/mL (3 4 unit (0.04 mL) subcut BID #0 mL 07/15/25 09/12/25 Rx mL) subcutaneous pen (Lantus Solostar U-100 Insulin) estradiol 0.01% (0.1 mg/gram) 0.5 g vaginal DAILY #42.5 grams 07/27/25 09/12/25 Rx vaginal cream (Estrace) aspirin 81 mg tablet 81 mg PO DAILY 09/12/25 09/12/25 History atorvastatin 40 mg tablet 40 mg PO DAILY 09/12/25 09/12/25 History metoprolol succinate 50 mg 50 mg PO DAILY 09/12/25 09/12/25 History tablet,extended release 24 hr nitrofurantoin 100 mg PO DAILY 09/12/25 09/12/25 History monohydrate/macrocrystals 100 mg capsule Past Med/Surg History Problem List UTI (urinary tract infection) (Acute) Hydroureteronephrosis (Acute) Anemia Ureteral reflux (Acute) Elevated troponin (Acute) Elevated lactic acid level (Acute) Leukocytosis (Acute) Vomiting (Acute) Acute urinary retention (Acute) Urinary incontinence CAD (coronary artery disease) Recurrent urinary tract infection (Acute) Hypertension Medical History T2DM (type 2 diabetes mellitus) Bilateral hydronephrosis History of DVT (deep vein thrombosis) Surgical History History of coronary artery bypass graft H/O heart surgery triple bypass CABG S/P urethral surgery Hx of cholecystectomy 1991 Hx of tonsillectomy 1959 Family History Father Diabetes Heart disease Hypertension Sister Diabetes Brother Diabetes Denies family history of Ovarian cancer Prostate cancer Lung cancer Colorectal cancer Stroke Social History Smoking Status: Never smoker Second Hand Exposure: No; Do You Dip or Chew Tobacco: No; Hx Alcohol Use: No Hx Substance Use: No Preferred Language: Upper Sorbian Communication Ability: Effective Visual Impairment: No Limitations Hearing Ability: Normal Sales Superintendent Required: No Beliefs That Will Affect Care: None marital status: Current Living Situation: Spouse Current Living Situation Comment: current occupational status: retired How many Children do You have: 4 Feels Safe at Home: Yes Safety Concerns: Feels Safe At This Time Childhood Exposure to Second-Hand Smoke: No Diet: other Diet Comment: no carb diet caffeine: Yes during the past year weight has: decreased > 10 lbs Dental Care, Regularly: Yes Physical Activity Frequency: Daily Seatbelt Use: always Sunscreen Use: Yes Assistive Devices: None Review of Systems Review of Systems: All systems reviewed & are unremarkable except as noted in HPI & below Physical Exam Constitutional: WD/WN, vitals as above Eyes: PERRL, conjunctivae normal, anicteric sclerae ENMT: external ear and nose normal, oropharynx normal Neck: trachea midline, no thyromegaly Respiratory: normal respiratory effort, lungs clear to auscultation Cardiovascular: RRR, no murmur, no edema Chest (Breasts): Chest: normal inspection of chest Gastrointestinal (Abdomen): Inspection/Auscultation: abdomen normal to inspection and normal bowel sounds; abdomen not distended Percussion/Palpation: + abdomen tender (Diffusely but more so in the suprapubic region without guarding or rebound) and abdomen soft; no guarding and no hepatosplenomegaly Musculoskeletal: Extremities: extremities normal to inspection; no cyanosis and no clubbing Skin: no rashes, warm and dry Neurologic: moves all extremities and awake; no focal motor deficits Psychiatric: A+Ox3, euthymic affect Lymphatic: no lymphedema Results & Data Results & Data Vital Signs (Past 12 Hours) Vital Signs Temp Pulse Resp BP Pulse Ox O2 Del Method 09/12/25 10:39 36.7 C 102 H 18 137/84 98 Room Air Laboratory Results CBC, CMP, lipase, UA reviewed Diagnostic Findings CT A/P reviewed: Abdomen/Pelvis CT 09/12/25 11:07 CT SCAN OF THE ABDOMEN AND PELVIS WITH IV CONTRAST CLINICAL HISTORY: Generalized abdominal pain. COMPARISON STUDY: Abdominal CT dated 07/14/2025. TECHNIQUE: Following the IV administration of 93 cc of Optiray 320, CT scan of the abdomen and pelvis is performed from the lung bases to the proximal femora. Images are reviewed in the axial, sagittal, and coronal planes. IV contrast was administered without complication. A dose lowering technique was utilized adhering to the principles of ALARA. CT DOSE: 764.4 mGy.cm FINDINGS: Lung bases: The patient is status post midline sternotomy. The heart is enlarged and without pericardial effusion. The coronary arteries are densely calcified. Metallic densities are again seen in the left ventricle. There is a small hiatal hernia. There is bibasilar scarring/atelectasis. Trace pleural effusions are observed. There is no airspace consolidation typical for pneumonia. Liver: The contrast-enhanced liver is normal in size, contour, and attenuation. There is no intrahepatic biliary ductal dilatation. The hepatic veins and portal veins are patent. Gallbladder: Surgically absent noting clips in the gallbladder fossa. Spleen: Normal in size and attenuation. Pancreas: Unremarkable. Adrenal glands: Unremarkable. Kidneys: The contrast enhanced kidneys are normal in size. There is moderate to severe bilateral hydroureteronephrosis. Both ureters are dilated to the level of the bladder, with no obstructing stone or lesion seen. The kidneys enhance symmetrically. A 14 mm cyst is noted on the left. Abdominal vasculature: The abdominal aorta is normal in course and caliber noting moderate to advanced atherosclerotic calcification. Bowel: There is moderate to advanced diverticulosis of the left colon without CT evidence of acute diverticulitis. The appendix is well-visualized and normal. Peritoneum: There is no intraperitoneal free air or abdominal ascites. Lymphadenopathy: None. Pelvic viscera: The bladder is distended and appears thick-walled with mild pericystic infiltration. There is gas within the cervical canal. The uterus is otherwise normal as imaged. No adnexal lesion is seen. Skeletal structures: The skeletal structures are osteopenic. Mild degenerative change is noted in the spine. No lytic or blastic lesions are seen. IMPRESSION: 1. The bladder is distended and appears thick-walled with mild pericystic infiltration. Correlated with clinical findings and urinalysis. 2. Moderate to severe bilateral hydroureteronephrosis is similar to 07/14/2025. The ureters are dilated to the level of the bladder with no obstructing stone or lesion seen. Follow-up with urology is advised. 3. Colonic diverticulosis without CT evidence of acute diverticulitis. 4. Cardiomegaly noting coronary artery atherosclerosis. 5. Additional findings as above. ACT 112: Negative or not required by law. Electronically signed by: Keith Bentley M.D. 09/12/2025 1:01 PM Code Status & VTE Plan Code Status DNR/DNI as per discussion with patient VTE Prophylaxis Plan VTE Prophylaxis will be ordered: Yes PG Care Time/CCT Total # of Minutes Spent Total Time Spent with Patient: Total time spent is greater than 50% in coordination of care (as documented) at patient's floor/unit and/or counseling patient: Coding Level of Care Code 50000 INT INP/OBS CARE 3/75MIN Diagnoses UTI (urinary tract infection) N39.0 Hematuria presence: without hematuria Urinary tract infection type: site unspecified Hydroureteronephrosis N13.30 Vomiting R11.2 Nausea presence: with nausea Vomiting type: unspecified (1) UTI (urinary tract infection) Hematuria presence: without hematuria Urinary tract infection type: site unspecified Qualified Code(s): N39.0 - Urinary tract infection, site not specified (3) Vomiting Nausea presence: with nausea Vomiting type: unspecified Qualified Code(s): R11.2 - Nausea with vomiting, unspecified
[2025-09-12] MEDS: ACETAMINOPHEN 1,000 MG/100 ML VIAL IV STA (15:18)
[2025-09-12] MEDS: FAMOTIDINE 20MG IV PUSH 20 MG/5 ML SYR IV STA (16:06)
[2025-09-12] MEDS: cefTRIAXone SODIUM 2,000 MG/50 ML BAG IV STA (16:12)
[2025-09-12] MEDS ORDERED: DEXTROSE 50% 50 ML SYRINGE IV PRN (16:51)
[2025-09-12] MEDS ORDERED: GLUCOSE 10 TAB/TUBE PO PRN (16:51)
[2025-09-12] MEDS ORDERED: GLUCAGON FOR INJ 1 MG VIAL SQ PRN (16:51)
[2025-09-12] MEDS ORDERED: MELATONIN 3 MG TAB PO PRN (16:51)
[2025-09-12] MEDS ORDERED: POLYETHYLENE (MIRALAX) 17 GM PACK PO PRN (16:51)
[2025-09-12] MEDS ORDERED: GLUCOSE 40% GEL 15 GM TUBE PO PRN (16:51)
[2025-09-12] MEDS ORDERED: CARBOHYDRATES FOR HYPOGLYCEMIA PO PRN (16:51)
[2025-09-12] MEDS: INSULIN ASPART PER UNIT CHARGE SC SCH (17:07)
[2025-09-12] MEDS ORDERED: NON-FORMULARY MEDICATION (Insulin Glargine [Lantus Solostar U-100 Insulin] 100 unit/mL (3 SQ SCH (21:00)
[2025-09-12] MEDS: HEPARIN SOD 5,000 UNIT/0.5 ML VIAL SQ SCH (21:28)
[2025-09-12] MEDS: LANTUS PER UNIT CHARGE SC SCH (21:28)
[2025-09-12] MEDS: PHENAZOPYRIDINE HCL 200 MG TAB PO ONE (21:28)
[2025-09-13 07:18] LABS: Hematocrit (blood only) 38.0 % (37.0-47.0); Hemoglobin 12.3 g/dL (12.0-16.0); Immature Granulocytes # (auto) 0.02 K/uL (0.01-0.20); Immature Granulocytes % (auto) 0.2 %; Mean Corpuscular Hemoglobin 27.5 pg (25.0-34.0); Mean Corpuscular Volume 85.0 fL (80.0-100.0); Platelet Count 327 K/uL (130-400); RDW Standard Deviation 42.5 fL (36.4-46.3); Red Blood Count 4.47 M/uL (4.20-5.40); White Blood Count 8.04 K/ul (4.8-10.8)
[2025-09-13 07:38] LABS: Anion Gap 6.0 (3-11); Blood Urea Nitrogen 26.0 mg/dl (6-23); Calcium 9.3 mg/dl (8.6-10.3); Carbon Dioxide 23.0 mmol/L (21-32); Chloride 109.0 mmol/L (98-107); Creatinine Clr Calc Pharmacy 27.1 ml/min; Glucose 108.0 mg/dl (70-99(Fasting)); Potassium 4.4 mmol/L (3.5-5.1); Sodium 138.0 mmol/L (136-145)
[2025-09-13 07:47] LABS: Hemoglobin A1C 6.3 % (4.5-5.6)
[2025-09-13] MEDS: ACETAMINOPHEN 500 MG TAB PO PRN (07:58)
[2025-09-13] MEDS: ATORVASTATIN 40 MG TAB PO SCH (07:59)
[2025-09-13] MEDS: METOPROLOL SUCC 50MG EXT REL TAB PO SCH (07:59)
[2025-09-13] MEDS: ASPIRIN 81 MG ECTAB PO SCH (07:59)
--- NOTE | 2025-09-13 10:30 | Hospitalist Progress Note ---
Date of Service September 13, 2025 Assessment & Plan (1) UTI (urinary tract infection): (2) Hydroureteronephrosis: (3) Vomiting: Plan This patient is a 70-year-old female with a history of recurrent UTI, chronic moderate-severe bilateral hydroureteronephrosis, chronic VUR and chronic bladder outlet obstruction, CAD s/p CABG, CKD stage III, DM 2, and DVT, who presents with nausea/vomiting, lower abdominal pain that radiated through to her lower back, and generally feeling poorly with low-grade fevers at home. Denies dysuria or hematuria. CT A/P which showed stable moderate-severe hydroureteronephrosis, distended bladder which was thick walled with pericystic infiltration, and her UA was abnormal consistent with UTI. She did not have any signs of sepsis. She is admitted for recurrent UTI in the setting of chronic bladder outlet obstruction and severe bilateral hydroureteronephrosis. #UTI/chronic moderate-severe bilateral hydroureteronephrosis/chronic bladder outlet obstruction/VUR/abdominal pain-patient has recently followed with urology and was referred to reconstructive urology at [facility] who recommended that she perform self catheterization and/or have a chronic Chavez catheter. Patient was upset at that visit as she was expecting to discuss ureteral reimplant surgery to prevent reflux, however the reconstructive urologist tried to explain that is her bladder outlet obstruction that is the main problem. She does not want to consider recurrent self-catheterization or chronic Chavez catheter at this point. She is amenable to catheterization in the hospital if needed for excessive PVRs-thus far, PVR is less than 400 mL-around 370 mL. Urine culture pending, blood cultures no growth to date. Nausea persists but vomiting resolved - Continue ceftriaxone - Follow urine culture, blood cultures - Follow bladder scans postvoid every shift and straight cath for PVR greater than 400 mL - She plans to follow-up with urology at [facility] after the holidays to discuss other options for her structural urologic issues - Holding home Macrobid prophylaxis - Continue home estradiol vaginal cream prescribed by urology - Acetaminophen as needed for pain or fever-patient has severe allergies to opioids and does not want to try anything else but has used tramadol in the past without problems - IV Zofran as needed for nausea - Follow CBC, BMP in the a.m. - Avoid Pyridium due to creatinine clearance being less than 50 #CAD s/p CABG-no acute issues but has chronic costochondritis - Continue home aspirin, Plavix, atorvastatin, metoprolol - Start Voltaren gel to costochondral junction 4 times daily as needed #CKD stage III-creatinine around baseline at 1.5-1.7 likely secondary to chronic moderate-severe bilateral hydronephrosis and bladder outlet obstruction - Follow BMP - Renally dose medications and avoid nephrotoxins - Follow-up with urology #[id number] as per patient at home on Mounjaro and low doses of Lantus. Blood sugars here are good - Continue Lantus - NovoLog supplemental insulin - BSG's and diabetic diet #History of DVT- heparin SQ 5000 mg every 12 hours, SCDs Disposition-continued stay on medical/surgical floor while awaiting urine culture and blood cultures-possible discharge to home on 09/14 DNR/DNI-discussed this extensively with patient who states that these are her wishes even though she thinks that her would disagree with her. She maintains that she would like to be a DNR/DNI regardless of what she thinks his opinion would be on the matter. Admission and Anticipated Discharge Date Admission Date: September 12, 2025 Subjective Patient feeling better, still some nausea but no vomiting. Tolerated breakfast. Still with suprapubic abdominal pain and some bilateral flank pain. She does not want to try anything stronger than Tylenol for pain. She also mentions chronic pain around her median sternotomy scar since her CABG. Physical Exam Constitutional: WD/WN, vitals as above Neck: trachea midline, no thyromegaly Respiratory: normal respiratory effort, lungs clear to auscultation Cardiovascular: RRR, no murmur, no edema Chest (Breasts): Chest: + abnormal inspection of chest (Median sternotomy scar-positive TTP mid costosternal border) Gastrointestinal (Abdomen): Inspection/Auscultation: abdomen normal to inspec tion and normal bowel sounds; abdomen not distended Percussion/Palpation: + abdomen tender (Diffusely but more so in the suprapubic region without guarding or rebound) and abdomen soft; no guarding and no hepatosplenomegaly Musculoskeletal: Extremities: extremities normal to inspection; no cyanosis and no clubbing Skin: no rashes, warm and dry Neurologic: moves all extremities and awake; no focal motor deficits Psychiatric: A+Ox3, euthymic affect Lymphatic: no lymphedema Results & Data Results & Data Vital Signs (Past 12 Hours) Vital Signs Temp Pulse Resp BP Pulse Ox O2 Del Method 09/13/25 07:30 36.6 C 77 18 168/91 H 98 Room Air Laboratory Results CBC, BMP, HgbA1c, blood cultures, urine culture reviewed PG Care Time/CCT Total # of Minutes Spent Total Time Spent with Patient: Total time spent is greater than 50% in coordination of care (as documented) at patient's floor/unit and/or counseling patient: Coding Level of Care Code 67888 SUB INP/OBS CARE 2MIN Diagnoses UTI (urinary tract infection) N39.0 Hematuria presence: without hematuria Urinary tract infection type: site unspecified Hydroureteronephrosis N13.30 Vomiting R11.2 Nausea presence: with nausea Vomiting type: unspecified (1) UTI (urinary tract infection) Hematuria presence: without hematuria Urinary tract infection type: site unspecified Qualified Code(s): N39.0 - Urinary tract infection, site not specified (3) Vomiting Nausea presence: with nausea Vomiting type: unspecified Qualified Code(s): R11.2 - Nausea with vomiting, unspecified
[2025-09-13] MEDS: DICLOFENAC SOD 1% GEL 100 GM TUBE EXT PRN (11:02)
[2025-09-13] MEDS: ONDANSETRON INJ 2 MG/ML 2 ML VIAL IV PRN (15:26)
[2025-09-13] MEDS: cefTRIAXone SODIUM 2,000 MG/50 ML BAG IV SCH (15:53)
[2025-09-14 07:42] LABS: Hematocrit (blood only) 34.5 % (37.0-47.0); Hemoglobin 11.2 g/dL (12.0-16.0); Immature Granulocytes # (auto) 0.04 K/uL (0.01-0.20); Immature Granulocytes % (auto) 0.4 %; Mean Corpuscular Hemoglobin 27.6 pg (25.0-34.0); Mean Corpuscular Volume 85.0 fL (80.0-100.0); Platelet Count 320 K/uL (130-400); RDW Standard Deviation 42.5 fL (36.4-46.3); Red Blood Count 4.06 M/uL (4.20-5.40); White Blood Count 10.51 K/ul (4.8-10.8)
[2025-09-14 08:03] LABS: Anion Gap 8.0 (3-11); Blood Urea Nitrogen 33.0 mg/dl (6-23); Calcium 8.6 mg/dl (8.6-10.3); Carbon Dioxide 22.0 mmol/L (21-32); Chloride 107.0 mmol/L (98-107); Creatinine Clr Calc Pharmacy 24.2 ml/min; Glucose 135.0 mg/dl (70-99(Fasting)); Potassium 4.1 mmol/L (3.5-5.1); Sodium 137.0 mmol/L (136-145)
--- NOTE | 2025-09-14 12:51 | Hospitalist Progress Note ---
Date of Service September 14, 2025 Assessment & Plan (1) UTI (urinary tract infection): (2) Hydroureteronephrosis: (3) Vomiting: Plan This patient is a 70-year-old female with a history of recurrent UTI, chronic moderate-severe bilateral hydroureteronephrosis, chronic VUR and chronic bladder outlet obstruction, CAD s/p CABG, CKD stage III, DM 2, and DVT, who presents with nausea/vomiting, lower abdominal pain that radiated through to her lower back, and generally feeling poorly with low-grade fevers at home. Denies dysuria or hematuria. CT A/P which showed stable moderate-severe hydroureteronephrosis, distended bladder which was thick walled with pericystic infiltration, and her UA was abnormal consistent with UTI. She did not have any signs of sepsis. She is admitted for recurrent UTI in the setting of chronic bladder outlet obstruction and severe bilateral hydroureteronephrosis. #UTI/chronic moderate-severe bilateral hydroureteronephrosis/chronic bladder outlet obstruction/VUR/abdominal pain-patient has recently followed with urology and was referred to reconstructive urology at [facility] who recommended that she perform self catheterization and/or have a chronic Chavez catheter. Patient was upset at that visit as she was expecting to discuss ureteral reimplant surgery to prevent reflux, however the reconstructive urologist tried to explain that her bladder outlet obstruction is the main problem, not the VUR. She does not want to consider recurrent self-catheterization or chronic Chavez catheter at this point. She is amenable to catheterization in the hospital if needed for excessive PVRs-thus far, PVR is less than 400 mL-around 370 mL. Urine culture with group B strep, no sensitivities to follow, blood cultures no growth to date. Nausea and vomiting are resolved. Still having significant abdominal pain at times. - Continue ceftriaxone with plan to convert to Keflex on discharge to finish out a 10-day course - Follow blood cultures-no growth to date - Follow bladder scans postvoid every shift and straight cath for PVR greater than 400 mL - She plans to follow-up with urology at [facility] after the holidays to discuss other options for her structural urologic issues - Holding home Macrobid prophylaxis and with her decreased renal function, this is not likely helpful - Continue home estradiol vaginal cream prescribed by urology - Acetaminophen as needed for pain or fever-will try low-dose IV Dilaudid for severe pain as she has tolerated this during previous admission in 06/2025 - IV Zofran as needed for nausea - Follow BMP in the a.m. - Avoid Pyridium due to creatinine clearance being less than 50 #CAD s/p CABG-no acute issues but has chronic costochondritis - Continue home aspirin, Plavix, atorvastatin, metoprolol - Started Voltaren gel to costochondral junction 4 times daily as needed # Acute renal insufficiency on CKD stage III-creatinine around baseline at 1.5- 1.7 likely secondary to chronic moderate-severe bilateral hydronephrosis and bladder outlet obstruction. She had some diarrhea on 09/13 and feels dehydrated now-creatinine up to 1.9. She is making urine - Give 1 L LR - Follow BMP - Renally dose medications and avoid nephrotoxins - Follow-up with urology #[id number] as per patient at home on Mounjaro and low doses of Lantus. Blood sugars here are good - Continue Lantus - NovoLog supplemental insulin - BSG's and diabetic diet #History of DVT- heparin SQ 5000 mg every 12 hours, SCDs Disposition-continued stay on medical/surgical floor for abdominal pain, renal insufficiency, hopeful for discharge to home in 09/15 DNR/DNI-discussed this extensively with patient who states that these are her wishes even though she thinks that her would disagree with her. She maintains that she would like to be a DNR/DNI regardless of what she thinks his opinion would be on the matter. Admission and Anticipated Discharge Date Admission Date: September 12, 2025 Subjective Patient reports she had a large episode of loose stool with some incontinence yesterday and that she felt very wiped out after that. Her abdominal pain is worse today. She feels more fatigued. PVRs are still less than 400 mL. No nausea and is tolerating regular diet. She is interested in trying something stronger for pain-I reviewed her chart and saw that she received 3 doses of IV Dilaudid on previous admissions. She did take Benadryl after one of them but then had further IV Dilaudid without having to take Benadryl after that and there is no mention of an allergic reaction during that previous admission on 07/14. She is also hoping to take a shower. Physical Exam Constitutional: WD/WN, vitals as above Neck: trachea midline, no thyromegaly Respiratory: normal respiratory effort, lungs clear to auscultation Cardiovascular: RRR, no murmur, no edema Chest (Breasts): Chest: + abnormal inspection of chest (Median sternotomy scar-positive TTP mid costosternal border) Gastrointestinal (Abdomen): Inspection/Auscultation: abdomen normal to inspection and normal bowel sounds; abdomen not distended Percussion/Palpati on: + abdomen tender (Diffusely but more so in the suprapubic region without guarding or rebound) and abdomen soft; no guarding and no hepatosplenomegaly Musculoskeletal: Extremities: extremities normal to inspection; no cyanosis and no clubbing Skin: no rashes, warm and dry Neurologic: moves all extremities and awake; no focal motor deficits Psychiatric: A+Ox3, euthymic affect Lymphatic: no lymphedema Results & Data Results & Data Vital Signs (Past 12 Hours) Vital Signs Temp Pulse Resp BP Pulse Ox O2 Del Method 09/14/25 07:54 36.5 C 75 14 137/79 96 Room Air Laboratory Results CBC, BMP, urine culture, blood cultures reviewed PG Care Time/CCT Total # of Minutes Spent Total Time Spent with Patient: Total time spent is greater than 50% in coordination of care (as documented) at patient's floor/unit and/or counseling patient: Coding Level of Care Code 28986 SUB INP/OBS CARE 2/35MIN Diagnoses UTI (urinary tract infection) N39.0 Hematuria presence: without hematuria Urinary tract infection type: site unspecified Hydroureteronephrosis N13.30 Vomiting R11.2 Nausea presence: with nausea Vomiting type: unspecified (1) UTI (urinary tract infection) Hematuria presence: without hematuria Urinary tract infection type: site unspecified Qualified Code(s): N39.0 - Urinary tract infection, site not specified (3) Vomiting Nausea presence: with nausea Vomiting type: unspecified Qualified Code(s): R11.2 - Nausea with vomiting, unspecified
[2025-09-14] MEDS ORDERED: diphenhydrAMINE 50 MG/ML VIAL IV PRN (12:54)
[2025-09-14] MEDS: LACTATED RINGER'S 1,000 ML IV SCH (13:27)
[2025-09-14] MEDS: HYDROmorphone INJ 0.5 MG/0.5 ML SYR IV PRN (13:33)
[2025-09-15 07:50] LABS: Anion Gap 7.0 (3-11); Blood Urea Nitrogen 35.0 mg/dl (6-23); Calcium 9.2 mg/dl (8.6-10.3); Carbon Dioxide 24.0 mmol/L (21-32); Chloride 107.0 mmol/L (98-107); Creatinine Clr Calc Pharmacy 24.2 ml/min; Glucose 105.0 mg/dl (70-99(Fasting)); Potassium 4.5 mmol/L (3.5-5.1); Sodium 138.0 mmol/L (136-145)
--- NOTE | 2025-09-15 10:24 | Infectious Disease Consult ---
Date of Consultation September 15, 2025 Assessment & Plan (1) UTI (urinary tract infection): (2) Hydroureteronephrosis: (3) Bladder outlet obstruction: Plan Problems: #Recurrent UTI on Macrobid suppression #Chronic bilateral hydroureteronephrosis #VUR #Chronic bladder outlet obstruction #DM2 #CKD Micro: 09/12 BCx x2: NGTD 09/12 UCx: GBS, E faecium (R amp, cipro, levo, tetra. S dapto, linezolid, nitrofurantoin, vanc) Abx: Ceftriaxone 09/12 - 09/14 Daptomycin 09/15 - present 70 yo F with history of recurrent UTI on Macrobid suppression since 06/2025, chronic moderate-severe bilateral hydroureteronephrosis, chronic VUR and chronic bladder outlet obstruction, CAD s/p CABG, CKD, DM2, DVT who presented on 09/12 with N/V, lower abdominal pain radiating to her lower back, admitted with complicated UTI. Denied dysuria. She was admitted to [facility] 07/04-07/07 with UTI. UCx showed contamination. CT with bilateral hydroureteronephrosis to the level of the bladder. García placed. Was treated with cefepime with improvement in her symptoms, discharged with short course of ciprofloxacin. García removed at urology follow-up on 07/11. Underwent cystourethrogram procedure 07/13, which showed distended and trabeculated bladder with grade 4 vesicoureteral reflux. Subsequently admitted 07/14-07/15 with vomiting, flank pain. CTAP with no significant change in bilateral hydronephrosis, bladder with moderate distension. Given cefepime --> ceftriaxone and discharged with cephalexin for UTI. Was referred to reconstructive urologist, who felt that she had bladder outlet obstruction which should be managed with CIC or garcía. It was felt that ureteral reimplant would be futile and would not improve her urinary retention. Pt was adamant against this. On presentation 09/12, pt was afebrile, HR 102. Labs showed WBC 9.44, Cr 1.58, UA with >50 WBCs. CTAP with contrast showed bladder is distended and appears thick-walled with mild pericystic infiltration. Moderate to severe BL hydroureteronephrosis similar to 07/14/25. On my evaluation, pt reports that she has been having more frequent UTIs since her CABG. Has been having a UTI around every month recently. She notes some improvement in her symptoms since hospitalization, but continues to have lower abd pressure. Discussion: Pt with chronic bladder outlet obstruction and VUR, contributing to her recurrent UTIs. Pt with post-void residuals consistently in 300s this admission. Recommendations: - S/p 1 dose of daptomycin today - Discontinue ceftriaxone - Will switch to linezolid 600 mg PO BID starting tomorrow morning, through 09/21 to complete a total 7 day course of antibiotics - Can subsequently restart her home Macrobid prophylaxis, although should address the underlying bladder outlet obstruction leading to her recurrent UTIs, otherwise the prophylactic antibiotic may not be very effective - Should follow-up with Urology Discussed with Dr. Avila. Will sign off. Consultation Information Consultation was provided via telemedicine using two-way real-time interactive telecommunication between the patient and the telemedicine provider. For the duration of the visit, the provider was performing the assessment from a different facility than the patient. This includesuse of bluetooth stethoscope forauscultationperformed by the telepresenter that the telemedicine provider can hear if described in the physical exam. [employer] contact information: Please call [facility] [phone]. (Phone Number For Physician Use Only) After establishing a telemedicine visit, patient was: Patient was verified with two unique identifiers, Patient/authorized rep acknowledged consent and understanding and Gave permission to continue telehealth session Time Spent with Patient: Initial => 55 min History of Present Illness Reason for Consultation: Complicated UTI Attending Physician: Hermila Avila MD History of Present Illness 70 yo F with history of recurrent UTI on Macrobid suppression since 06/2025, chronic moderate-severe bilateral hydroureteronephrosis, chronic VUR and chronic bladder outlet obstruction, CAD s/p CABG, CKD, DM2, DVT who presented on 09/12 with N/V, lower abdominal pain radiating to her lower back. Denied dysuria. She was admitted to [facility] 07/04-07/07 with UTI. UCx showed contamination. CT with bilateral hydroureteronephrosis to the level of the bladder. García placed. Was treated with cefepime with improvement in her symptoms, discharged with short course of ciprofloxacin. García removed at urology follow-up on 07/11. Underwent cystourethrogram procedure 07/13, which showed distended and trabeculated bladder with grade 4 vesicoureteral reflux. Subsequently admitted 07/14-07/15 with vomiting, flank pain. CTAP with no significant change in bilateral hydronephrosis, bladder with moderate distension. Given cefepime --> ceftriaxone and discharged with cephalexin for UTI. Was referred to reconstructive urologist, who felt that she had bladder outlet obstruction which should be managed with CIC or garcía. It was felt that ureteral reimplant would be futile and would not improve her urinary retention. Pt was adamant against this. On presentation 09/12, pt was afebrile, HR 102. Labs showed WBC 9.44, Cr 1.58, UA with >50 WBCs. CTAP with contrast showed bladder is distended and appears thick-walled with mild pericystic infiltration. Moderate to severe BL hydroureteronephrosis similar to 07/14/25. On my evaluation, pt reports that she has been having more frequent UTIs since her CABG. Has been having a UTI around every month recently. She notes some improvement in her symptoms since hospitalization, but continues to have lower abd pressure. She reports she would rather than manage her urinary retention with a garcía. Allergies Allergy/AdvReac Type Severity Reaction Status Date / Time banana Allergy Severe Vomiting Unverified 07/27/25 09:01 Beef Containing Products Allergy Severe Vomiting Unverified 07/27/25 09:01 codeine Allergy Severe IV--WHOLE Verified 07/27/25 09:01 ARM SWELLED, SHORT OF BREATH morphine Allergy Severe IV--WHOLE Verified 07/27/25 09:01 ARM SWELLED, SHORT OF BREATH peanut Allergy Severe Hives Verified 09/12/25 17:15 Penicillins Allergy Intermediate Rash Verified 07/27/25 09:01 Sulfa (Sulfonamide Allergy Intermediate Rash Verified 07/27/25 09:01 Antibiotics) tetracycline Allergy Intermediate Rash Verified 07/27/25 09:01 Fish Containing Products AdvReac Nausea Verified 09/13/25 11:37 tree nut AdvReac Nausea Verified 09/13/25 14:30 Home Medications Medication Instructions Recorded Confirmed Type tirzepatide 2.5 mg/0.5 mL 2.5 mg subcut WK 07/04/25 09/12/25 History subcutaneous pen injector (Mounjaro) [id number]-[id number]-keypq acid 240 1 tab PO DAILY 07/14/25 09/12/25 History mcg-vit K1 150 mcg-herb 357 tablet (Alive Women's 50 Plus Ultra Multivitamin) insulin glargine 100 unit/mL (3 4 unit (0.04 mL) subcut BID #0 mL 07/15/25 09/12/25 Rx mL) subcutaneous pen (Lantus Solostar U-100 Insulin) estradiol 0.01% (0.1 mg/gram) 0.5 g vaginal DAILY #42.5 grams 07/27/25 09/12/25 Rx vaginal cream (Estrace) aspirin 81 mg tablet 81 mg PO DAILY 09/12/25 09/12/25 History atorvastatin 40 mg tablet 40 mg PO DAILY 09/12/25 09/12/25 History metoprolol succinate 50 mg 50 mg PO DAILY 09/12/25 09/12/25 History tablet,extended release 24 hr nitrofurantoin 100 mg PO DAILY 09/12/25 09/12/25 History monohydrate/macrocrystals 100 mg capsule Patient History Medical History T2DM (type 2 diabetes mellitus) Bilateral hydronephrosis History of DVT (deep vein thrombosis) Surgical History History of coronary artery bypass graft H/O heart surgery triple bypass CABG S/P urethral surgery Hx of cholecystectomy 1991 Hx of tonsillectomy 1960 Family History Father Diabetes Heart disease Hypertension Sister Diabetes Brother Diabetes Denies family history of Ovarian cancer Prostate cancer Lung cancer Colorectal cancer Stroke Social History Smoking Status: Never smoker Second Hand Exposure: No; Do You Dip or Chew Tobacco: No; Hx Alcohol Use: No Hx Substance Use: No Preferred Language: Niuean Communication Ability: Effective Visual Impairment: No Limitations Hearing Ability: Normal Program Manager Rn Required: No Beliefs That Will Affect Care: None marital status: Current Living Situation: Spouse Current Living Situation Comment: current occupational status: retired How many Children do You have: 4 Feels Safe at Home: Yes Safety Concerns: Feels Safe At This Time Childhood Exposure to Second-Hand Smoke: No Diet: other Diet Comment: no carb diet caffeine: Yes during the past year weight has: decreased > 10 lbs Dental Care, Regularly: Yes Physical Activity Frequency: Daily Seatbelt Use: always Sunscreen Use: Yes Assistive Devices: None Review of System A complete ROS was performed and is negative except as mentioned in the HPI. Physical Exam Physical Exam: GEN: Well-appearing, in NAD. RESP: No increased work of breathing SKIN: No lesions or rashes on exposed skin. NEURO: Alert and oriented. Answers all questions appropriately. Speech not slurred. PSYCH: Normal mood, affect appropriate. Results & Data Vital Signs (Past 12 Hours) Vital Signs Temp Pulse Resp BP Pulse Ox O2 Del Method 09/14/25 23:26 36.4 C L 71 18 159/87 H 98 Room Air Laboratory Results [facility] 09/15/25 06:49 Sodium 138 Potassium 4.5 Chloride 107 Carbon Dioxide 24 BUN 35 H Creatinine 1.90 H Glucose 105 H Calcium 9.2 Diagnostic Findings Abdomen/Pelvis CT 09/12/25 11:07 CT SCAN OF THE ABDOMEN AND PELVIS WITH IV CONTRAST CLINICAL HISTORY: Generalized abdominal pain. COMPARISON STUDY: Abdominal CT dated 07/14/2025. TECHNIQUE: Following the IV administration of 93 cc of Optiray 320, CT scan of the abdomen and pelvis is performed from the lung bases to the proximal femora. Images are reviewed in the axial, sagittal, and coronal planes. IV contrast was administered without complication. A dose lowering technique was utilized adhering to the principles of ALARA. CT DOSE: 764.4 mGy.cm FINDINGS: Lung bases: The patient is status post midline sternotomy. The heart is enlarged and without pericardial effusion. The coronary arteries are densely calcified. Metallic densities are again seen in the left ventricle. There is a small hiatal hernia. There is bibasilar scarring/atelectasis. Trace pleural effusions are ob served. There is no airspace consolidation typical for pneumonia. Liver: The contrast-enhanced liver is normal in size, contour, and attenuation. There is no intrahepatic biliary ductal dilatation. The hepatic veins and portal veins are patent. Gallbladder: Surgically absent noting clips in the gallbladder fossa. Spleen: Normal in size and attenuation. Pancreas: Unremarkable. Adrenal glands: Unremarkable. Kidneys: The contrast enhanced kidneys are normal in size. There is moderate to severe bilateral hydroureteronephrosis. Both ureters are dilated to the level of the bladder, with no obstructing stone or lesion seen. The kidneys enhance symmetrically. A 14 mm cyst is noted on the left. Abdominal vasculature: The abdominal aorta is normal in course and caliber noting moderate to advanced atherosclerotic calcification. Bowel: There is moderate to advanced diverticulosis of the left colon without CT evidence of acute diverticulitis. The appendix is well-visualized and normal. Peritoneum: There is no intraperitoneal free air or abdominal ascites. Lymphadenopathy: None. Pelvic viscera: The bladder is distended and appears thick-walled with mild pericystic infiltration. There is gas within the cervical canal. The uterus is otherwise normal as imaged. No adnexal lesion is seen. Skeletal structures: The skeletal structures are osteopenic. Mild degenerative change is noted in the spine. No lytic or blastic lesions are seen. IMPRESSION: 1. The bladder is distended and appears thick-walled with mild pericystic infiltration. Correlated with clinical findings and urinalysis. 2. Moderate to severe bilateral hydroureteronephrosis is similar to 07/14/2025. The ureters are dilated to the level of the bladder with no obstructing stone or lesion seen. Follow-up with urology is advised. 3. Colonic diverticulosis without CT evidence of acute diverticulitis. 4. Cardiomegaly noting coronary artery atherosclerosis. 5. Additional findings as above. ACT 112: Negative or not required by law. Electronically signed by: Keith Bentley M.D. 09/12/2025 1:01 PM Medications Administered Current Inpatient Medications Acetaminophen (Acetaminophen 500 Mg Tab) 1,000 mg PO Q8H PRN PRN Reason: Pain or Fever Stop: 10/12/25 20:11 Last Admin: 09/15/25 07:40 Dose: 1,000 mg Aspirin (Aspirin 81 Mg Ectab) 81 mg PO DAILY PORTILLO Stop: 10/13/25 08:59 Last Admin: 09/15/25 08:37 Dose: 81 mg Atorvastatin Calcium (Atorvastatin 40 Mg Tab) 40 mg PO DAILY PORTILLO Stop: 10/13/25 08:59 Last Admin: 09/15/25 08:37 Dose: 40 mg Dextrose (Dextrose 50% 50 Ml Syringe) 25 - 50 ml IV UD PRN; Protocol PRN Reason: Hypoglycemia Protocol Stop: 10/12/25 16:50 Diclofenac Sodium (Diclofenac Sod 1% Gel 100 Gm Tube) 2 gm EXT QID PRN; Protocol PRN Reason: chest pain Stop: 10/13/25 12:59 Last Admin: 09/13/25 11:02 Dose: 2 gm Diphenhydramine HCl (Diphenhydramine 50 Mg/Ml Vial) 25 mg IV Q6 PRN PRN Reason: itching or rash Stop: 10/14/25 12:53 Glucagon (Glucagon For Inj 1 Mg Vial) 1 mg SQ UD PRN; Protocol PRN Reason: Hypoglycemia Protocol Stop: 10/12/25 16:50 Glucose (Glucose 40% Gel 15 Gm Tube) 15 - 30 gm PO UD PRN; Protocol PRN Reason: Hypoglycemia Protocol Stop: 10/12/25 16:50 Glucose (Glucose 10 Tab/Tube) 4 - 8 tab PO UD PRN; Protocol PRN Reason: Hypoglycemia Protocol Stop: 10/12/25 16:50 Heparin Sodium (Porcine) (Heparin Sod 5,000 Unit/0.5 Ml Vial) 5,000 units SQ Q12 [facility]ILLO Stop: 10/12/25 20:59 Last Admin: 09/15/25 08:36 Dose: 5,000 units Hydromorphone HCl (Hydromorphone Inj 0.5 Mg/0.5 Ml Syr) 0.25 mg IV Q6H PRN PRN Reason: moderate-severe Pain Stop: 09/28/25 12:53 Last Admin: 09/15/25 13:49 Dose: 0.25 mg Daptomycin 700 mg/ Syringe 14 mls @ 7 mls/min IV Q48H [facility]; Protocol Stop: 09/25/25 09:59 Last Admin: 09/15/25 10:44 Dose: 7 mls/min Insulin Aspart (Insulin Aspart Per Unit Charge) 0 units SC ACHS [facility] Stop: 10/12/25 16:50 Last Admin: 09/15/25 12:27 Dose: Not Given Insulin Glargine (Lantus Per Unit Charge) 4 units SC BID [facility] Stop: 10/12/25 20:59 Last Admin: 09/15/25 08:35 Dose: 4 units Melatonin (Melatonin 3 Mg Tab) 3 mg PO HS PRN PRN Reason: Insomnia Stop: 10/12/25 16:50 Metoprolol Succinate (Metoprolol Succ 50mg Ext Rel Tab) 50 mg PO DAILY [facility] Stop: 10/13/25 08:59 Last Admin: 09/15/25 08:37 Dose: 50 mg Miscellaneous (Order Awaiting Action) 1 each N/A QS [facility] Stop: 10/13/25 00:00 Last Admin: 09/15/25 08:37 Dose: Not Given Miscellaneous (Carbohydrates For Hypoglycemia ) 15 - 30 gm PO UD PRN PRN Reason: Hypoglycemia Protocol Stop: 10/12/25 16:50 Ondansetron HCl (Ondansetron Inj 2 Mg/Ml 2 Ml Vial) 4 mg IV Q6H PRN PRN Reason: Nausea Stop: 10/12/25 16:50 Last Admin: 09/14/25 06:08 Dose: 4 mg Pantoprazole Sodium (Pantoprazole 40 Mg Tab) 40 mg PO QAM [facility] Stop: 10/15/25 13:39 Polyethylene Glycol (Polyethylene (Miralax) 17 Gm Pack) 17 gm PO DAILY PRN PRN Reason: Constipation Stop: 10/12/25 16:50 (1) UTI (urinary tract infection) Hematuria presence: without hematuria Urinary tract infection type: site unspecified Qualified Code(s): N39.0 - Urinary tract infection, site not specified
[2025-09-15] MEDS: DAPTOmycin 700 MG in SYRINGE 0 ML IV SCH (10:44)
--- NOTE | 2025-09-15 11:19 | Hospitalist Progress Note ---
Date of Service September 15, 2025 Assessment & Plan (1) UTI (urinary tract infection): (2) Hydroureteronephrosis: (3) LISA (acute kidney injury): (4) Nausea: Plan This patient is a 70-year-old female with a history of recurrent UTI, chronic moderate-severe bilateral hydroureteronephrosis, chronic VUR and chronic bladder outlet obstruction, CAD s/p CABG, CKD stage III, DM 2, and DVT, who presents with nausea/vomiting, lower abdominal pain that radiated through to her lower back, and generally feeling poorly with low-grade fevers at home. Denies dysuria or hematuria. CT A/P which showed stable moderate-severe hydroureteronephrosis, distended bladder which was thick walled with pericystic infiltration, and her UA was abnormal consistent with UTI. She did not have any signs of sepsis. She is admitted for recurrent complicated UTI in the setting of chronic bladder outlet obstruction and severe bilateral hydroureteronephrosis. #UTI/chronic moderate-severe bilateral hydroureteronephrosis/chronic bladder outlet obstruction/VUR/abdominal pain-patient has recently followed with urology and was referred to reconstructive urology at [facility] who recommended that she perform self catheterization and/or have a chronic Chavez catheter. P erna was upset at that visit as she was expecting to discuss ureteral reimplant surgery to prevent reflux, however the reconstructive urologist tried to explain that her bladder outlet obstruction is the main problem, not the VUR. She did not want to consider recurrent self-catheterization or chronic Chavez catheter at that time, but is now realizing that self-catheterization perhaps at least once a day might be helpful for bladder drainage. Thus far, PVR in the hospital is less than 400 mL-around 370 mL. Urine culture with group B strep, no sensitivities to follow, and now with Enterococcus faecium, sensis pending is growing. Her blood cultures remain no growth to date. Vomiting resolved but has chronic nausea probably from Mounjaro. Still having significant abdominal pain at times but seems to be improving. -Discontinue ceftriaxone and start IV daptomycin - Follow-up sensitivities on Enterococcus - Consult [id number] to switch to linezolid which would cover group B strep and Enterococcus on discharge - Follow blood cultures-remain no growth to date - Follow bladder scans postvoid every shift and straight cath for PVR greater than 400 mL - She plans to follow-up with urology at [facility] after the holidays to discuss other options for her structural urologic issues, but is now open possibly to self cath once daily - Holding home Macrobid prophylaxis and with her decreased renal function, this is not likely helpful - Continue home estradiol vaginal cream prescribed by urology - Acetaminophen as needed for pain or fever, low-dose IV Dilaudid for severe pa in - IV Zofran as needed for nausea - Follow BMP in the a.m. - Avoid Pyridium due to creatinine clearance being less than 50 #CAD s/p CABG-no acute issues but has chronic costochondritis - Continue home aspirin, Plavix, atorvastatin, metoprolol - Started Voltaren gel to costochondral junction 4 times daily as needed # Acute renal insufficiency on CKD stage III-creatinine around baseline at 1.5- 1.7 likely secondary to chronic moderate-severe bilateral hydronephrosis and bladder outlet obstruction. She had some diarrhea on 09/13 and feels dehydrated now-creatinine up to 1.9. She is making urine. Received 1 L IV fluids and creatinine remains at 1.9. - Follow BMP in the a.m. - Renally dose medications and avoid nephrotoxins - Follow-up with urology and potentially start self-catheterization #[id number] as per patient at home on Mounjaro and low doses of Lantus. Blood sugars here are good. Has chronic nausea likely from the Mounjaro - Continue Lantus - NovoLog supplemental insulin - BSG's and diabetic diet #History of DVT- heparin SQ 5000 mg every 12 hours, SCDs Disposition-continued stay on medical/surgical floor for abdominal pain, renal insufficiency, and follow-up on sensitivities of Enterococcus. Hopeful for discharge to home on 09/16 DNR/DNI-discussed this extensively with patient who states that these are her wishes even though she thinks that her would disagree with her. She maintains that she would like to be a DNR/DNI regardless of what she thinks his opinion would be on the matter. Admission and Anticipated Discharge Date Admission Date: September 12, 2025 Subjective Patient had 1 loose stool yesterday, none so far today. Still complains of lower abdominal pain and requesting IV Dilaudid which worked well yesterday but made her feel "stupid." No evidence of allergic reaction. We discussed, along with a drawn diagram, about her structural issues with her bladder and ureters and kidneys. She is starting to come around to the idea of self catheterizing maybe at least once a day. Still with daily nausea although she reports she has nausea chronically. I discussed her care with infectious disease. Physical Exam Constitutional: WD/WN, vitals as above Neck: trachea midline, no thyromegaly Respiratory: normal respiratory effort, lungs clear to auscultation Cardiovascular: RRR, no murmur, no edema Gastrointestinal (Abdomen): Inspection/Auscultation: abdomen normal to inspection and normal bowel sounds; abdomen not distended Pe rcussion/Palpation: + abdomen tender (Mild, suprapubic region without guarding or rebound) and abdomen soft; no guarding and no hepatosplenomegaly Musculoskeletal: Extremities: extremities normal to inspection; no cyanosis and no clubbing Skin: no rashes, warm and dry Neurologic: moves all extremities and awake; no focal motor deficits Psychiatric: A+Ox3, euthymic affect Lymphatic: no lymphedema Results & Data Results & Data Vital Signs (Past 12 Hours) Vital Signs Temp Pulse Resp BP Pulse Ox O2 Del Method 09/14/25 23:26 36.4 C L 71 18 159/87 H 98 Room Air Laboratory Results BMP, urine culture, blood cultures reviewed PG Care Time/CCT Total # of Minutes Spent Total Time Spent with Patient: Total time spent is greater than 50% in coordination of care (as documented) at patient's floor/unit and/or counseling patient: Coding Level of Care Code 54057 SUB INP/OBS CARE 2/35MIN Diagnoses UTI (urinary tract infection) N39.0 Hematuria presence: without hematuria Urinary tract infection type: site unspecified Hydroureteronephrosis N13.30 LISA (acute kidney injury) N17.9 Nausea R11.0 (1) UTI (urinary tract infection) Hematuria presence: without hematuria Urinary tract infection type: site unspecified Qualified Code(s): N39.0 - Urinary tract infection, site not specified
[2025-09-15] MEDS ORDERED: FAMOTIDINE 20 MG TAB PO SCH (13:45)
[2025-09-16 06:45] LABS: Hematocrit (blood only) 33.6 % (37.0-47.0); Hemoglobin 11.1 g/dL (12.0-16.0); Immature Granulocytes # (auto) 0.03 K/uL (0.01-0.20); Immature Granulocytes % (auto) 0.4 %; Mean Corpuscular Hemoglobin 28.0 pg (25.0-34.0); Mean Corpuscular Volume 84.8 fL (80.0-100.0); Platelet Count 308 K/uL (130-400); RDW Standard Deviation 42.2 fL (36.4-46.3); Red Blood Count 3.96 M/uL (4.20-5.40); White Blood Count 8.16 K/ul (4.8-10.8)
[2025-09-16 07:09] LABS: Alanine Aminotransferase 6.0 U/L (7-52); Albumin Globulin Ratio 1.0 (0.9-2); Albumin Level 3.3 gm/dl (3.4-5.0); Alkaline Phosphatase 70.0 U/L (34-104); Anion Gap 7.0 (3-11); Bilirubin,Total 0.4 mg/dl (0.2-1.0); Blood Urea Nitrogen 34.0 mg/dl (6-23); Calcium 9.0 mg/dl (8.6-10.3); Carbon Dioxide 23.0 mmol/L (21-32); Chloride 107.0 mmol/L (98-107); Creatine Kinase 40.0 U/L (26-192); Creatinine Clr Calc Pharmacy 27.7 ml/min; Globulin 3.3 gm/dl (2.5-4.0); Glucose 114.0 mg/dl (70-99(Fasting)); Potassium 4.0 mmol/L (3.5-5.1); Sodium 137.0 mmol/L (136-145); Total Protein 6.6 gm/dl (6.0-8.3)
[2025-09-16 07:37] VITALS: BP 145/78; RESP 20; TEMP 98.1; O2SAT 98
[2025-09-16] MEDS: LINEZOLID 600 MG TAB PO SCH (08:54)
--- NOTE | 2025-09-16 11:50 | Discharge Summary ---
Discharge Summary Date of Service September 16, 2025 Principal Dx & Hospital Course #1 = Principal Diagnosis (1) UTI (urinary tract infection): (2) Hydroureteronephrosis: (3) LISA (acute kidney injury): (4) Nausea: Plan This patient is a 70-year-old female with a history of recurrent UTI, chronic moderate-severe bilateral hydroureteronephrosis, chronic VUR and chronic bladder outlet obstruction, CAD s/p CABG, CKD stage III, DM 2, and DVT, who presents with nausea/vomiting, lower abdominal pain that radiated through to her lower back, and generally feeling poorly with low-grade fevers at home. Denies dysuria or hematuria. CT A/P which showed stable moderate-severe hydroureteronephrosis, distended bladder which was thick walled with pericystic infiltration, and her UA was abnormal consistent with UTI. She did not have any signs of sepsis. She is admitted for recurrent complicated UTI in the setting of chronic bladder outlet obstruction and severe bilateral hydroureteronephrosis. #UTI/chronic moderate-severe bilateral hydroureteronephrosis/chronic bladder outlet obstruction/VUR/abdominal pain-patient has recently followed with urology and was referred to reconstructive urology at [facility] who recommended that she perform self catheterization and/or have a chronic Chavez catheter. Patient was upset at that visit as she was expecting to discuss ureteral reimplant surgery to prevent reflux, however the reconstructive urologist tried to explain that her bladder outlet obstruction is the main problem, not the VUR. She did not want to consider recurrent self-catheterization or chronic Chavez catheter at that time, but is now realizing that self-catheterization perhaps at least once a day might be helpful for bladder drainage. Thus far, PVR in the hospital is less than 400 mL-around 370 mL. Urine culture with group B strep, no sensitivities to follow, and now with Enterococcus faecium, resistant to ampicillin, fluoroquinolones, and tetracycline, but sensitive to linezolid and daptomycin. Her blood cultures remain no growth to date. Vomiting resolved but has chronic nausea probably from Mounjaro. Her significant abdominal pain is also now improving. Initially received ceftriaxone x 2 days and then started IV daptomycin on 09/15 for the Enterococcus - Consult [id number] to switch to linezolid which would cover group B strep and Enterococcus on discharge-Will complete a 10-day course on discharge - Follow blood cultures-remain no growth to date - She plans to follow-up with urology at [facility] after the holidays to discuss other options for her structural urologic issues, but is now open to self cath once daily-I have asked the urology nurse practitioner to arrange a nurse visit at the urology office for education on self catheterization - Holding home Macrobid prophylaxis and with her decreased renal function, this is not likely helpful-can resume after done with antibiotics as renal function has improved somewhat - Continue home estradiol vaginal cream prescribed by urology - Acetaminophen as needed for pain or fever - Continue p.o. Zofran as needed for nausea after discharge #CAD s/p CABG-no acute issues but has chronic costochondritis - Continue home aspirin, Plavix, atorvastatin, metoprolol - Started Voltaren gel to costochondral junction 4 times daily as needed which is helping # Acute renal insufficiency on CKD stage III-creatinine around baseline at 1.5- 1.7 likely secondary to chronic moderate-severe bilateral hydronephrosis and bladder outlet obstruction. She had some diarrhea on 09/13 and feels dehydrated -creatinine up to 1.9 for 2 days and now improved to 1.6 on the day of discharge. She is making urine. Received IV fluids - Renally dose medications and avoid nephrotoxins - Follow-up with urology and plan to start self-catheterization - Follow BMP as an outpatient with PCP #[id number] as per patient at home on Mounjaro and low doses of Lantus. Blood sugars here are good. Has chronic nausea likely from the Mounjaro - Continue Lantus and can resume Mounjaro on discharge as per patient's wish - Gave a prescription for p.o. Zofran as needed - BSG's and diabetic diet #Indigestion/GERD-started Protonix and helping - Continue Protonix 40 mg p.o. daily on discharge #History of DVT- heparin SQ 5000 mg every 12 hours, SCDs Disposition-stable for discharge to home Notes For Next Care Provider Plans to start bladder [id number] with nurse for teaching on this at urology office will be arranged by urology Follow BMP in 2 weeks for renal function Medication Changes From Visit Added linezolid 600 mg p.o. twice daily Added Protonix 40 mg p.o. once daily Admission HPI Per Admitting Provider This patient is a 70-year-old female with a history of recurrent UTI, chronic moderate-severe bilateral hydroureteronephrosis, chronic VUR and chronic bladder outlet obstruction, CAD s/p CABG, CKD stage III, DM 2, and DVT, who presents with nausea/vomiting, lower abdominal pain that radiated through to her lower back, and generally feeling poorly since the night before. She believes that she had low-grade fevers at home. Denies dysuria or hematuria. She reports she vomited multiple times, nonbloody emesis. In the ED, she had a CT A/P which showed stable moderate-severe hydroureteronephrosis, distended bladder which was thick walled with pericystic infiltration, and her UA was abnormal consistent with UTI. She did not have any signs of sepsis. Her creatinine was around her baseline at 1.5, alkaline phosphatase mildly elevated at 115, and otherwise, laboratory values were unremarkable. She was given a dose of IV ceftriaxone as well as some IV fluids and Zofran. She did not feel well enough to return home. She will be admitted for recurrent UTI in the setting of chronic bladder outlet obstruction and severe bilateral hydroureteronephrosis. Discharge Exam Constitutional WD/WN, vitals as above Neck trachea midline, no thyromegaly Respiratory normal respiratory effort, lungs clear to auscultation Cardiovascular RRR, no murmur, no edema Gastrointestinal (Abdomen) Inspection/Auscultation: abdomen normal to inspection and normal bowel sounds; abdomen not distended Percussion/Palpation: + abdomen tender (Mild, suprapubic region without guarding or rebound) and abdomen soft; no guarding and no hepatosplenomegaly Musculoskeletal Extremities: extremities normal to inspection; no cyanosis and no clubbing Skin no rashes, warm and dry Neurologic moves all extremities and awake; no focal motor deficits Psychiatric A+Ox3, euthymic affect Lymphatic no lymphedema Discharge Plan Discharge Items Patient Disposition: Home - Self-Care Reason For Visit: UTI Discharge Diagnosis: Recurrent UTI Chronic bilateral hydroureteronephrosis Urinary retention Condition on Discharge: Good Activity: Resume your previous activity Non-emergency contact: Primary Care Provider and Urologist Call non-emergency contact if: you have any medication questions, your symptoms worsen, your pain is not controlled, your pain is worsening, your pain is unusual for you, you have a fever and your temperature is above 101 Follow-up/Referrals: Abigail Lee DO [Physician] - (Please follow-up with your PCP within 1-2 weeks-if you prefer to be seen by Dr. Lee, you can ask for her directly.) Rosie Lowe DO [Primary Care Provider] - Diet: Regular Addtl Attending Provider Instructions: Please finish out the course of linezolid twice a day for 8 more days for your urinary infection. The urology office should be contacting you to set up an appointment for you to come in and meet with their nurse for education on how to catheterize your bladder on your own. It would be helpful if you could do this at least once or twice a day in order to prevent future urinary infections. Please follow-up with the urology doctor after that within 1 month to discuss further options. If you develop fevers or chills, worsening severe abdominal pain, significant nausea or vomiting over your usual, or just generally feeling poorly, please return to the hospital. It was a pleasure taking care of you! If you have any questions about your care before your hospital follow-up visit with your primary care provider, please call [phone] and ask to be transferred to the [facility] Medicine office. Sincerely, Hermila Avila M.D. Pending Studies at Discharge: Yes (Final blood cultures-no growth to date) Stand-Alone Forms: My [facility], Smoking Cessation Medications and DC Order Prescriptions: New linezolid 600 mg Tablet 600 mg PO BID Qty: 17 0RF pantoprazole 40 mg Tablet,Delayed Release (Dr/Ec) 40 mg PO QAM Qty: 30 0RF ondansetron 4 mg tablet,disintegrating 4 mg PO Q8H PRN (Reason: nausea and vomiting) Qty: 20 0RF acetaminophen [Tylenol Extra Strength] 500 mg Tablet 1,000 mg PO Q8H PRN (Reason: pain) Qty: 30 0RF Rx Instructions: Knxp-[id number] diclofenac sodium [Voltaren Arthritis Pain] 1 % Gel 2 g EXT QID PRN (Reason: Pain in the sternum) Qty: 100 0RF Rx Instructions: Please give tube from the hospital Continued estradiol [Estrace] 0.01 % (0.1 mg/gram) cream 0.5 g vaginal DAILY Qty: 42.5 2RF Rx Instructions: for 14 days Mounjaro 2.5 mg/0.5 mL pen injector 2.5 mg SUBCUT WK Rx Instructions: THURSDAYS aspirin 81 mg Tablet 81 mg PO DAILY atorvastatin 40 mg Tablet 40 mg PO DAILY metoprolol succinate 50 mg Tablet Extended Release 24 Hr 50 mg PO DAILY Alive Women's 50 Plus Ultra MV 240-150 mcg Tablet 1 tab PO DAILY insulin glargine [Lantus Solostar U-100 Insulin] 100 unit/mL (3 mL) Insulin Pen 4 unit SUBCUT BID Qty: 0 0RF Held nitrofurantoin monohyd/m-cryst 100 mg capsule 100 mg PO DAILY Hold Instructions: Resume on 09/25/25. Do not take while you are on the other antibiotics. You can restart the nitrofurantoin after you are done with the linezolid. Discharge Orders: Discharge Order (Routine); Ordered 09/16/25 Ordered By: Hermila Olivas/Other Patient Handouts: Managing Type 2 Diabetes Admission Data Admit Date/Time: 09/12/25 14:39 Attending Provider: Hermila Avila Admit Provider: Hermila Avila Primary Care Provider: Rosie Lowe Other Providers: Hermila Avila Hospital Stay Data Consultations 09/12/25 14:20 ED Decision to Admit Stat 09/15/25 09:32 Consult Infectious Diseases Routine Diagnostic Imagining Performed 09/12/25 11:07 CT abd pelvis IV con only Stat Pending Results Patient Have Any Pending Studies at Discharge: Yes (Final blood cultures-no growth to date) Discharge Instructions Given to Patient (Per Discharging Provider) Please finish out the course of linezolid twice a day for 8 more days for your urinary infection. The urology office should be contacting you to set up an appointment for you to come in and meet with their nurse for education on how to catheterize your bladder on your own. It would be helpful if you could do this at least once or twice a day in order to prevent future urinary infections. Please follow-up with the urology doctor after that within 1 month to discuss further options. If you develop fevers or chills, worsening severe abdominal pain, significant nausea or vomiting over your usual, or just generally feeling poorly, please return to the hospital. It was a pleasure taking care of you! If you have any questions about your care before your hospital follow-up visit with your primary care provider, please call [phone] and ask to be transferred to the [facility] Medicine office. Sincerely, Hermila Avila M.D. Total Time Total Time Spent Total Time Spent (In Minutes): 35 minutes Total Time Includes: Examination of the Patient, Discharge Planning, Medication Reconciliation and Communication With Other Providers Coding Level of Care Code 26175 INP/OBS DISCH >30 MIN Diagnoses UTI (urinary tract infection) N39.0 Hematuria presence: without hematuria Urinary tract infection type: site unspecified Hydroureteronephrosis N13.30 LISA (acute kidney injury) N17.9 Nausea R11.0
[2025-09-16 13:08] VITALS: PULSE 82
== END 2025-09-16 13:23 | disposition home or self-care (01) | DRG 690 ==
LOC: SUATTDRO → ED 10:25 → 3N 14:39

== ENCOUNTER 2025-10-16 07:20 | Observation (INO) ==
--- NOTE | 2025-10-16 08:07 | Emergency Department Note ---
Impression & Plan Vomiting and diarrhea, Leukocytosis, Acute dehydration, Acute UTI ED Provider Note NAME: GINNA ANGUIANO AGE: 70 SEX: F : 1955 ARRIVES VIA: Walk-In INFORMANT: [Patient][family] ED PROVIDER(S): [Keith Sharpe MD] CHIEF COMPLAINT: Vomiting and diarrhea HISTORY OF PRESENT ILLNESS: The patient is a 70-year-old female who presents with 3 days of vomiting and diarrhea. She has diffuse abdominal pain which is more constant than crampy. No fever. No cough or congestion or respiratory complaints. No urinary complaints. The patient states that she thinks she caught the stomach bug. The patient states that she cannot tolerate anything by mouth. She has noticed some dizziness and there is of course concern for dehydration. The patient was recently admitted to our hospital a month ago, she had a complicated UTI. PMHx/PSHx/Social Hx: See Below PHYSICAL EXAM: GENERAL: Patient is in no acute distress. Dry heaving. HEENT: No acute trauma, normocephalic atraumatic, mucous membranes moist, no nasal congestion. NECK: No stridor, no adenopathy, no meningismus, trachea is midline. LUNGS: Clear to auscultation bilaterally, no wheeze, no rhonchi, breath sounds equal. HEART: Without murmurs gallops or rubs, regular rate and rhythm. ABDOMEN: Soft, diffusely mildly tender, no distention. EXTREMITIES: No cyanosis, full range of motion of all the joints without pain or difficulty. NEUROLOGIC: Oriented x 3, no acute motor or sensory deficits, no focal weakness. SKIN: No jaundice, no diaphoresis. DIFFERENTIAL DIAGNOSIS: Viral illness, foodborne illness, dehydration, UTI, bacteremia or sepsis, among others. EMERGENCY DEPARTMENT PROCEDURES: MEDICAL DECISION MAKING: There is a moderate leukocytosis, this of course would be consistent with infection. There was a normal hemoglobin and platelet count. VBG did not show any significant acidosis or concerning CO2 retention. Creatinine was slightly elevated consistent with some dehydration. No electrolyte abnormality in need of emergent correction. Lactic acid level was not elevated making severe sepsis less likely. No concerning liver enzyme elevation. ECG shows a sinus rhythm, no obvious ST elevation. Cardiac enzyme testing x 2 is slightly elevated but stable, given the lack of troponin rise on delta testing, I do not believe there is evidence consistent with acute cardiac injury. Looking back at previous testing, the troponin has been mildly elevated previously. Urinalysis is consistent with infection. COVID, influenza and RSV test were negative. Chest x-ray did not show any pneumonia. Abdominal and pelvis CT did not show any new findings, there was no bowel obstruction. No acute surgical pathology by CT imaging. The patient received 2 L of IV saline and 1 L of lactated Ringer's. She was given IV Phenergan and IV Zofran, and additional dose of IV Zofran was given. She received IV daptomycin and IV ceftriaxone as antibiotic coverage. She was given IV Tylenol. Given the findings, given her persistent nausea and her history of recent complicated UTI, I do think a hospital stay, IV antibiotic therapy, further hydration and care is warranted. I spoke with the patient and case management, the on-call hospitalist was consulted. Prior/Outside records/notes reviewed: Discharge summary note from 09/16/2025 describing her presentation, hospital course and discharge plan. ECG per my interpretation: Indication was vomiting. The ECG shows a normal sinus rhythm with a rate of 95. 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 There is no obvious ST elevation, no PVCs. The QTc is 439. Continuous Cardiac Monitoring per my interpretation: An order was placed for continuous cardiac monitoring. The monitor shows a rate of 110 with sinus tachycardia. Imaging/x-ray results per my interpretation: Chest x-ray does not show pneumonia or free air. Chronic Medical/Social conditions affecting care: Advanced age, recent hospitalization. Care/Management discussed with: Case management and the on-call hospitalist. Level of care consideration(s): After review of the information above and other included data: --I believe the patient requires escalation of care to admission Critical Care Note: I have personally spent 41 minutes of critical care time in the direct management of this patient. This includes bedside care, interpretation of diagnostic studies, and testing, discussion with consultants, patient, and family members, and other required patient management activities. This 41 minutes is in excess of all separately billable procedures. DISPOSITION: Admission Past Med/Surg History Problem List Acute UTI (Acute) Acute dehydration (Acute) Leukocytosis (Acute) Vomiting and diarrhea (Acute) Complicated UTI (urinary tract infection) Bladder outlet obstruction Nausea LISA (acute kidney injury) Hydroureteronephrosis (Acute) Anemia Ureteral reflux (Acute) Elevated troponin (Acute) Elevated lactic acid level (Acute) Leukocytosis (Acute) Vomiting (Acute) Acute urinary retention (Acute) Urinary incontinence CAD (coronary artery disease) Recurrent urinary tract infection (Acute) Hypertension Medical History T2DM (type 2 diabetes mellitus) Bilateral hydronephrosis History of DVT (deep vein thrombosis) Surgical History History of coronary artery bypass graft H/O heart surgery triple bypass CABG S/P urethral surgery Hx of cholecystectomy 1991 Hx of tonsillectomy 1959 Family History Father Diabetes Heart disease Hypertension Sister Diabetes Brother Diabetes Denies family history of Ovarian cancer Prostate cancer Lung cancer Colorectal cancer Stroke Social History Smoking Status: Never smoker Second Hand Exposure: No; Do You Dip or Chew Tobacco: No; Hx Alcohol Use: No Hx Substance Use: No Preferred Language: Nepali Communication Ability: Effective Visual Impairment: No Limitations Hearing Ability: Normal Design Leader Required: No Beliefs That Will Affect Care: None marital status: Current Living Situation: Spouse Current Living Situation Comment: current occupational status: retired How many Children do You have: 4 Other Information That Helps Us Care for You: No Feels Safe at Home: Yes Safety Concerns: Feels Safe At This Time Childhood Exposure to Second-Hand Smoke: No Diet: other Diet Comment: no carb diet caffeine: Yes during the past year weight has: decreased > 10 lbs Dental Care, Regularly: Yes Physical Activity Frequency: Daily Seatbelt Use: always Sunscreen Use: Yes Assistive Devices: None Allergies Allergies Allergy/AdvReac Type Severity Reaction Status Date / Time banana Allergy Severe Vomiting Unverified 07/27/25 09:01 Beef Containing Products Allergy Severe Vomiting Unverified 07/27/25 09:01 codeine Allergy Severe IV--WHOLE Verified 07/27/25 09:01 ARM SWELLED, SHORT OF BREATH morphine Allergy Severe IV--WHOLE Verified 07/27/25 09:01 ARM SWELLED, SHORT OF BREATH peanut Allergy Severe Hives Verified 09/12/25 17:15 Penicillins Allergy Intermediate Rash Verified 07/27/25 09:01 Sulfa (Sulfonamide Allergy Intermediate Rash Verified 07/27/25 09:01 Antibiotics) tetracycline Allergy Intermediate Rash Verified 07/27/25 09:01 Fish Containing Products AdvReac Nausea Verified 09/13/25 11:37 tree nut AdvReac Nausea Verified 09/13/25 14:30 Home Meds Home Medications Medication Instructions Recorded Confirmed tirzepatide 2.5 mg/0.5 mL 2.5 mg subcut WK 07/04/25 10/16/25 subcutaneous pen injector (Mounjaro) [id number] acid 240 1 tab PO DAILY 07/14/25 10/16/25 mcg-vit K1 150 mcg-herb 357 tablet (Alive Women's 50 Plus Ultra Multivitamin) aspirin 81 mg tablet 81 mg PO DAILY 09/12/25 10/16/25 atorvastatin 40 mg tablet 40 mg PO DAILY 09/12/25 10/16/25 metoprolol succinate 50 mg 50 mg PO DAILY 09/12/25 10/16/25 tablet,extended release 24 hr Previous Rx's Medication Instructions Recorded insulin glargine 100 unit/mL (3 4 unit (0.04 mL) subcut BID #0 mL 07/15/25 mL) subcutaneous pen (Lantus Solostar U-100 Insulin) estradiol 0.01% (0.1 mg/gram) 0.5 g vaginal DAILY #42.5 grams 07/27/25 vaginal cream (Estrace) acetaminophen 500 mg tablet 1,000 mg (2 x 500 mg) PO Q8H PRN 09/16/25 (Tylenol Extra Strength) pain #30 tabs diclofenac sodium 1 % topical gel 2 g EXT QID PRN Pain in the 09/16/25 (Voltaren Arthritis Pain) sternum #100 grams ondansetron 4 mg disintegrating 4 mg PO Q8H PRN nausea and 09/16/25 tablet vomiting #20 tabs pantoprazole 40 mg tablet,delayed 40 mg PO QAM #30 tabs 09/16/25 release Results & Data (ED) Vital Signs Vital Signs - 24 hr 10/16/25 07:27 10/16/25 08:13 10/16/25 08:35 Temperature 36 C L Temperature Source Temporal Artery Scan Pulse Rate 110 H 97 H 90 Pulse Rate [Apical] Respiratory Rate 18 16 Respiratory Effort / Characteristics Non-Labored Respiratory Depth Normal Respiratory Pattern Regular Blood Pressure 150/81 H Blood Pressure [Left Arm] Blood Pressure Mean 104 Blood Pressure Mean [Left Arm] Blood Pressure Position [Left Arm] Pulse Oximetry 98 98 Oxygen Delivery Method Room Air Room Air Sepsis Recent Fever Within 48 Hours No Sepsis New/Unexplained Change in Mental Status N/A Sepsis Action Taken by Nursing No Action Required 10/16/25 09:00 10/16/25 11:41 10/16/25 12:36 Temperature Temperature Source Pulse Rate 84 Pulse Rate [Apical] 81 76 Respiratory Rate 16 19 Respiratory Effort / Characteristics Non-Labored Spontaneous Non-Labored Spontaneous Respiratory Depth Normal Normal Respiratory Pattern Regular Regular Blood Pressure Blood Pressure [Left Arm] 152/79 H 145/70 H Blood Pressure Mean Blood Pressure Mean [Left Arm] 103 95 Blood Pressure Position [Left Arm] Lying Pulse Oximetry 99 100 Oxygen Delivery Method Room Air Room Air Sepsis Recent Fever Within 48 Hours Sepsis New/Unexplained Change in Mental Status Sepsis Action Taken by Nursing 10/16/25 12:42 Temperature 36.5 C Temperature Source Oral Pulse Rate Pulse Rate [Apical] 85 Respiratory Rate 18 Respiratory Effort / Characteristics Non-Labored Spontaneous Respiratory Depth Normal Respiratory Pattern Regular Blood Pressure Blood Pressure [Left Arm] 139/71 Blood Pressure Mean Blood Pressure Mean [Left Arm] 93 Blood Pressure Position [Left Arm] Lying Pulse Oximetry 98 Oxygen Delivery Method Room Air Sepsis Recent Fever Within 48 Hours Sepsis New/Unexplained Change in Mental Status Sepsis Action Taken by Jail Medications Current Medication List: was personally reviewed by me Laboratory Data Attestation: I reviewed the patient's lab results. 10/16/25 08:04 10/16/25 08:04 Lab Results 10/16/25 10/16/25 10/16/25 Range/Units 08:04 08:19 09:52 WBC 18.72 H (4.8-10.8) K/ul RBC 4.68 (4.20-5.40) M/uL Hgb 13.0 (12.0-16.0) g/dL Hct 40.6 (37.0-47.0) % MCV 86.8 (80.0-100.0) fL MCH 27.8 (25.0-34.0) pg MCHC 32.0 (32.0-36.0) g/dL RDW Std Deviation 43.7 (36.4-46.3) fL RDW Coeff of Maria A 13.9 (11.5-14.5) % Plt Count 344 (130-400) K/uL MPV 10.1 (9.4-12.4) fL Immature Gran % (Auto) 0.4 % Neut % (Auto) 88.6 % Lymph % (Auto) 5.5 % [place] % (Auto) 5.3 % Eos % (Auto) 0.0 % Baso % (Auto) 0.2 % Neut # (Auto) 16.58 H (1.40-6.50) K/uL Lymph # (Auto) 1.03 L (1.20-3.40) K/uL [place] # (Auto) 0.99 H (0.11-0.59) K/uL Eos # (Auto) 0.00 (0.00-0.50) K/uL Baso # (Auto) 0.04 (0.00-0.20) K/uL Immature Gran # (Auto) 0.08 (0.01-0.20) K/uL VBG pH 7.34 L (7.36-7.41) VBG pCO2 39 (38-50) mmHg VBG pO2 < 20 mmHg VBG HCO3 21 mmol/L VBG O2 Saturation < 60.0 % VBG Base Excess -4.4 mEq/L Sodium 135 L (136-145) mmol/L Potassium 4.7 (3.5-5.1) mmol/L Chloride 104 (98-107) mmol/L Carbon Dioxide 21 (21-32) mmol/L Anion Gap 10 (3-11) BUN 31 H (6-23) mg/dl Creatinine 1.87 H (0.6-1.2) mg/dl Est Cr Clr Drug Dosing Not Reportable eGFR 28.60 BUN/Creatinine Ratio 16.6 (10-20) Glucose 204 H (70-99(Fasting)) mg/dl Lactate 1.6 (0.4-2.0) mmol/L Calcium 9.6 (8.6-10.3) mg/dl Magnesium 1.8 (1.7-2.4) mg/dl Total Bilirubin 1.7 H (0.2-1.0) mg/dl AST 13 (13-39) U/L ALT 12 (7-52) U/L Alkaline Phosphatase 90 (34-104) U/L Troponin I High Sens 26.5 H 27.6 H (0-14) pg/ml Total Protein 8.3 (6.0-8.3) gm/dl Albumin 3.8 (3.4-5.0) gm/dl Globulin 4.5 H (2.5-4.0) gm/dl Albumin/Globulin Ratio 0.8 L (0.9-2) Urine Color Urine Appearance (Clear) Urine pH (4.5-7.5) Ur Specific Shubert (1.000-1.030) Urine Protein (Negative) Urine Glucose (UA) (Negative) Urine Ketones (Negative) Urine Blood (Negative) Urine Nitrite (Negative) Urine Bilirubin (Negative) Urine Urobilinogen (Negative) Ur Leukocyte Esterase (Negative) Urine WBC (Auto) (0-5) /hpf Urine RBC (Auto) (0-2) /hpf U Hyaline Cast (Auto) (0-2) /lpf U Epithel Cells (Auto) (0-2) /hpf Urine Bacteria (Auto) (None Seen) Urine Comment SARS-CoV-2 (PCR) NEGATIVE (Negative) Influenza Type A (PCR) Negative (Neg) Influenza Type B (PCR) Negative (Neg) RSV (RT-PCR) Negative (Neg) 10/16/25 Range/Units 11:40 WBC (4.8-10.8) K/ul RBC (4.20-5.40) M/uL Hgb (12.0-16.0) g/dL Hct (37.0-47.0) % MCV (80.0-100.0) fL MCH (25.0-34.0) pg MCHC (32.0-36.0) g/dL RDW Std Deviation (36.4-46.3) fL RDW Coeff of Maria A (11.5-14.5) % Plt Count (130-400) K/uL MPV (9.4-12.4) fL Immature Gran % (Auto) % Neut % (Auto) % Lymph % (Auto) % [place] % (Auto) % Eos % (Auto) % Baso % (Auto) % Neut # (Auto) (1.40-6.50) K/uL Lymph # (Auto) (1.20-3.40) K/uL [place] # (Auto) (0.11-0.59) K/uL Eos # (Auto) (0.00-0.50) K/uL Baso # (Auto) (0.00-0.20) K/uL Immature Gran # (Auto) (0.01-0.20) K/uL VBG pH (7.36-7.41) VBG pCO2 (38-50) mmHg VBG pO2 mmHg VBG HCO3 mmol/L VBG O2 Saturation % VBG Base Excess mEq/L Sodium (136-145) mmol/L Potassium (3.5-5.1) mmol/L Chloride (98-107) mmol/L Carbon Dioxide (21-32) mmol/L Anion Gap (3-11) BUN (6-23) mg/dl Creatinine (0.6-1.2) mg/dl Est Cr Clr Drug Dosing eGFR BUN/Creatinine Ratio (10-20) Glucose (70-99(Fasting)) mg/dl Lactate (0.4-2.0) mmol/L Calcium (8.6-10.3) mg/dl Magnesium (1.7-2.4) mg/dl Total Bilirubin (0.2-1.0) mg/dl AST (13-39) U/L ALT (7-52) U/L Alkaline Phosphatase (34-104) U/L Troponin I High Sens (0-14) pg/ml Total Protein (6.0-8.3) gm/dl Albumin (3.4-5.0) gm/dl Globulin (2.5-4.0) gm/dl Albumin/Globulin Ratio (0.9-2) Urine Color Yellow Urine Appearance Turbid A (Clear) Urine pH 5.5 (4.5-7.5) Ur Specific [place] 1.010 (1.000-1.030) Urine Protein 2+ H (Negative) Urine Glucose (UA) Negative (Negative) Urine Ketones Negative (Negative) Urine Blood 2+ H (Negative) Urine Nitrite Negative (Negative) Urine Bilirubin Negative (Negative) Urine Urobilinogen Negative (Negative) Ur Leukocyte Esterase 3+ H (Negative) Urine WBC (Auto) >50 H (0-5) /hpf Urine RBC (Auto) 0-2 (0-2) /hpf U Hyaline Cast (Auto) 3-5 H (0-2) /lpf U Epithel Cells (Auto) 0-2 (0-2) /hpf Urine Bacteria (Auto) 4+ H (None Seen) Urine Comment SARS-CoV-2 (PCR) (Negative) Influenza Type A (PCR) (Neg) Influenza Type B (PCR) (Neg) RSV (RT-PCR) (Neg) Administered Medications Prochlorperazine 10 mg/ (Syringe) 10 mls @ 5 mls/min IV Q6H PRN PRN Reason: Nausea And Vomiting Stop: 11/15/25 14:35 Last Admin: 10/16/25 15:02 Dose: 5 mls/min Documented By: anand Discontinued Medications Sodium Chloride (Nss) 1,000 mls @ 999 mls/hr IV .Q1H1M PORTILLO Stop: 10/16/25 09:00 Last Infusion: 10/16/25 09:41 Dose: Infused Documented By: Admin: 10/16/25 08:10 Dose: 999 mls/hr Documented By: EMILIO Acetaminophen (Ofirmev) 1,000 mg in 100 mls @ 400 mls/hr IV NOW STA Stop: 10/16/25 08:04 Last Infusion: 10/16/25 08:30 Dose: Infused Documented By: Admin: 10/16/25 08:08 Dose: 400 mls/hr Documented By: EMILIO Promethazine HCl (Phenergan) 6.25 mg in 50.25 mls @ 201 mls/hr IV NOW STA Stop: 10/16/25 08:06 Last Infusion: 10/16/25 09:40 Dose: Infused Documented By: Admin: 10/16/25 08:33 Dose: 201 mls/hr Documented By: [place] Sodium Chloride (Nss) 1,000 mls @ 999 mls/hr IV .Q1H1M ONE Stop: 10/16/25 10:45 Last Infusion: 10/16/25 11:42 Dose: Infused Documented By: Admin: 10/16/25 09:53 Dose: 999 mls/hr Documented By: [place] Lactated Ringer's (Lr) 1,000 mls @ 999 mls/hr IV .Q1H1M ONE Stop: 10/16/25 12:21 Last Infusion: 10/16/25 13:36 Dose: Infused Documented By: Admin: 10/16/25 12:04 Dose: 999 mls/hr Documented By: FRANKIE Daptomycin 500 mg/ Syringe 10 mls @ 5 mls/min IV NOW STA; Protocol Stop: 10/16/25 12:13 Last Admin: 10/16/25 12:32 Dose: 5 mls/min Documented By: [place] Ceftriaxone Sodium (Rocephin) 2,000 mg in 50 mls @ 100 mls/hr IV NOW STA Stop: 10/16/25 12:41 Last Infusion: 10/16/25 13:36 Dose: Infused Documented By: Admin: 10/16/25 12:32 Dose: 100 mls/hr Documented By: [place] Lorazepam (Lorazepam 1 Mg/1 Ml Syr Ed Inj Use) 0.5 mg IV ONE STA Stop: 10/16/25 14:37 Last Admin: 10/16/25 14:50 Dose: 0.5 mg Documented By: CLIVE Ondansetron HCl (Ondansetron Inj 2 Mg/Ml 2 Ml Vial) 4 mg IV NOW STA Stop: 10/16/25 07:51 Last Admin: 10/16/25 08:10 Dose: 4 mg Documented By: EMILIO Ondansetron HCl (Ondansetron Inj 2 Mg/Ml 2 Ml Vial) 4 mg IV NOW STA Stop: 10/16/25 12:29 Last Admin: 10/16/25 12:32 Dose: 4 mg Documented By: [place] Imaging Data Radiologist's Impression: Chest X-Ray 10/16/25 07:50 Clinical History: Weakness Technique: A frontal view of the chest was obtained Findings: There are no confluent pulmonary infiltrates. The heart size is within normal limits. No pleural effusion or pneumothorax is seen. There is no definite pulmonary nodule. No fracture is noted. Sternal wires and plates are seen Impression: No active disease Electronically signed by Reji Mancilla 10-16-2025 08:58 AM Abdomen/Pelvis CT 10/16/25 09:07 Clinical History: Abdominal pain Technique: Axial computed tomography images were obtained of the abdomen and pelvis without intravenous contrast. Comparison is made to the prior CT dated 09/12/2025 Findings: The liver is overall of normal size, attenuation, and contour with no sign of cirrhosis or significant fatty infiltration. No definite liver mass lesion is seen on this noncontrast study. The gallbladder has been removed. No bile duct dilatation is noted. The spleen is of normal size. No focal splenic lesion is evident. The pancreas appears normal with no sign of acute or chronic pancreatitis and no mass lesion noted. The pancreatic duct is of normal caliber. The adrenal glands appear unremarkable. There is a 2 mm left renal calculus. No right renal or proximal ureteral calculi are seen. There is unchanged bilateral moderate severity hydronephrosis. There is unchanged bilateral hydroureter. No definite renal mass lesion is identified. The aorta is of normal caliber. No abdominal adenopathy is seen. The stomach appears normal. There is no sign of small bowel obstruction. There is diverticulosis without definite diverticulitis. No free intraperitoneal fluid or air is identified. No distal ureteral or bladder calculi are seen. No obvious bladder mass lesion is evident. The iliac arteries are of normal caliber. No pelvic adenopathy is noted. The lungs bases appear clear. Mild thoracolumbar degenerative disc disease is seen. No fracture is identified. No focal osseous lesion is seen Impression: 1. Unchanged bilateral hydronephrosis and hydroureter without visible obstructing calculus or mass. This could be due to strictures at the UVJ, bladder pathology, or could be residual from prior obstruction or reflux 2. Small left renal calculus 3. Diverticulosis without definite diverticulitis Electronically signed by Reji Mancilla 10-16-2025 09:42 AM Discharge Plan Visit Data Chief Complaint: Vomiting Stated Complaint: VOMITING ED Provider: Keith Sharpe Discharge Problem: Vomiting and diarrhea, Leukocytosis, Acute dehydration, Acute UTI Patient Disposition: Admitted As Inpatient Condition: Fair Discharge Instructions Interventions: ED Discharge Assessment Last Done: 10/16/25 15:01 Discharge Problem: Leukocytosis Qualifiers: Leukocytosis type: unspecified Qualified Code(s): D72.829 - Elevated white blood cell count, unspecified
[2025-10-16] MEDS: ACETAMINOPHEN 1,000 MG/100 ML VIAL IV STA (08:08)
[2025-10-16] MEDS: ONDANSETRON INJ 2 MG/ML 2 ML VIAL IV STA ×2 (08:10→12:32)
[2025-10-16] MEDS: SODIUM CHLORIDE 0.9% 1,000 ML IV SCH (08:10)
[2025-10-16 08:15] LABS: Base Excess VBG -4.4 mEq/L; HCO3 VBG 21 mmol/L; Oxygen Saturation VBG < 60.0 %; PCO2 VBG 39 mmHg (38-50); PO2 VBG < 20 mmHg; pH VBG 7.34 (7.36-7.41)
[2025-10-16 08:19] LABS: Hematocrit (blood only) 40.6 % (37.0-47.0); Hemoglobin 13.0 g/dL (12.0-16.0); Immature Granulocytes # (auto) 0.08 K/uL (0.01-0.20); Immature Granulocytes % (auto) 0.4 %; Mean Corpuscular Hemoglobin 27.8 pg (25.0-34.0); Mean Corpuscular Volume 86.8 fL (80.0-100.0); Platelet Count 344 K/uL (130-400); RDW Standard Deviation 43.7 fL (36.4-46.3); Red Blood Count 4.68 M/uL (4.20-5.40); White Blood Count 18.72 K/ul (4.8-10.8)
[2025-10-16] MEDS: PROMETHAZINE 6.25 MG/50.25 ML BAG IV STA (08:33)
[2025-10-16 08:36] LABS: Alanine Aminotransferase 12 U/L (7-52); Albumin Globulin Ratio 0.8 (0.9-2); Albumin Level 3.8 gm/dl (3.4-5.0); Alkaline Phosphatase 90 U/L (34-104); Anion Gap 10 (3-11); Bilirubin,Total 1.7 mg/dl (0.2-1.0); Blood Urea Nitrogen 31 mg/dl (6-23); Calcium 9.6 mg/dl (8.6-10.3); Carbon Dioxide 21 mmol/L (21-32); Chloride 104 mmol/L (98-107); Globulin 4.5 gm/dl (2.5-4.0); Glucose 204 mg/dl (70-99(Fasting)); Magnesium 1.8 mg/dl (1.7-2.4); Potassium 4.7 mmol/L (3.5-5.1); Sodium 135 mmol/L (136-145); Total Protein 8.3 gm/dl (6.0-8.3)
--- NOTE | 2025-10-16 08:58 | XRay Report ---
Clinical History: Weakness Technique: A frontal view of the chest was obtained Findings: There are no confluent pulmonary infiltrates. The heart size is within normal limits. No pleural effusion or pneumothorax is seen. There is no definite pulmonary nodule. No fracture is noted. Sternal wires and plates are seen Impression: No active disease Electronically signed by Reji Mancilla 10-16-2025 08:58 AM
[2025-10-16 09:02] LABS: Influenza A virus by PCR Negative (Neg); Influenza B virus by PCR Negative (Neg); SARS CoV2 RNA(COVID-19) Ceph NEGATIVE (Negative)
--- NOTE | 2025-10-16 09:43 | CT Scan Report ---
Clinical History: Abdominal pain Technique: Axial computed tomography images were obtained of the abdomen and pelvis without intravenous contrast. Comparison is made to the prior CT dated 09/12/2025 Findings: The liver is overall of normal size, attenuation, and contour with no sign of cirrhosis or significant fatty infiltration. No definite liver mass lesion is seen on this noncontrast study. The gallbladder has been removed. No bile duct dilatation is noted. The spleen is of normal size. No focal splenic lesion is evident. The pancreas appears normal with no sign of acute or chronic pancreatitis and no mass lesion noted. The pancreatic duct is of normal caliber. The adrenal glands appear unremarkable. There is a 2 mm left renal calculus. No right renal or proximal ureteral calculi are seen. There is unchanged bilateral moderate severity hydronephrosis. There is unchanged bilateral hydroureter. No definite renal mass lesion is identified. The aorta is of normal caliber. No abdominal adenopathy is seen. The stomach appears normal. There is no sign of small bowel obstruction. There is diverticulosis without definite diverticulitis. No free intraperitoneal fluid or air is identified. No distal ureteral or bladder calculi are seen. No obvious bladder mass lesion is evident. The iliac arteries are of normal caliber. No pelvic adenopathy is noted. The lungs bases appear clear. Mild thoracolumbar degenerative disc disease is seen. No fracture is identified. No focal osseous lesion is seen Impression: 1. Unchanged bilateral hydronephrosis and hydroureter without visible obstructing calculus or mass. This could be due to strictures at the UVJ, bladder pathology, or could be residual from prior obstruction or reflux 2. Small left renal calculus 3. Diverticulosis without definite diverticulitis Electronically signed by Reji Mancilla 10-16-2025 09:42 AM
--- NOTE | 2025-10-16 09:47 | Electrocardiogram Report ---
Test Reason : Blood Pressure : */* mmHG Vent. Rate : 95 BPM Atrial Rate : 95 BPM P-R Int : 140 ms QRS Dur : 88 ms QT Int : 350 ms P-R-T Axes : 66 56 77 degrees QTcB Int : 439 ms Normal sinus rhythm Possible Inferior infarct (cited on or before 05-Jul-2025) Anteroseptal infarct (cited on or before 05-Jul-2025) Abnormal ECG When compared with ECG of 14-Jul-2025 09:54, Questionable change in initial forces of Anterior leads Confirmed by Jamison Nguyen ([id number]) on 10/16/2025 9:46:54 AM Referred By: REFERRED SELF Confirmed By: Jamison Nguyen
[2025-10-16] MEDS: SODIUM CHLORIDE 0.9% 1,000 ML IV ONE (09:53)
[2025-10-16] MEDS: LACTATED RINGER'S 1,000 ML IV ONE (12:04)
[2025-10-16 12:05] LABS: Appearance Urine Turbid (Clear); Bacteria Urine Automated 4+ (None Seen); Epithelial Cell Urine Auto 0-2 /hpf (0-2); Glucose Urine UA Negative (Negative); RBC Urine Automated 0-2 /hpf (0-2); WBC Urine Automated >50 /hpf (0-5)
[2025-10-16] MEDS: cefTRIAXone SODIUM 2,000 MG/50 ML BAG IV STA (12:32)
[2025-10-16] MEDS: DAPTOmycin 500 MG in SYRINGE 0 ML IV STA (12:32)
[2025-10-16] MEDS ORDERED: PHARMACY GLYCEMIC MGMT CONSULT PRN (12:57)
[2025-10-16] MEDS ORDERED: ONDANSETRON INJ 2 MG/ML 2 ML VIAL IV PRN ×2 (12:57)
--- NOTE | 2025-10-16 13:08 | History & Physical Report ---
Date of Service October 16, 2025 Assessment & Plan (1) Complicated UTI (urinary tract infection): Plan: -treated last month for complicated UTI 2nd to E.faecium -sensitive to daptomycin -con't daptomycin -f/u urine C&S -IVF -zofran prn -ID consulted (2) CAD (coronary artery disease): Plan: -aspirin -Lipitor (3) Hypertension: Plan: -metoprolol (4) T2DM (type 2 diabetes mellitus): Plan: -pharm consult for glycemic mangement -lantus Plan Heparin SQ for DVT px History of Present Illness Chief Complaint: Vomiting, diarrhea, diffuse abdominal pain Primary Care Provider: Rosie Lowe DO Pt is a 70-year-old female with a history of recurrent UTI, chronic moderate- severe bilateral hydroureteronephrosis, chronic VUR and chronic bladder outlet obstruction, CAD s/p CABG, CKD stage III, DM 2, who presents with 3 days of nausea/vomiting and diffuse abdominal pain. Pt was treated last month for complicated UTI 2nd to E.faecium. In the ER patient was found to have WBC 18 with UA + for UTI. Previous urine culture showed sensitives to daptomycin. Pt was given daptomycin and rocephin in the ER and will be admitted for further treatment of recurrent complicated UTI. Allergies Allergy/AdvReac Type Severity Reaction Status Date / Time banana Allergy Severe Vomiting Unverified 07/27/25 09:01 Beef Containing Products Allergy Severe Vomiting Unverified 07/27/25 09:01 codeine Allergy Severe IV--WHOLE Verified 07/27/25 09:01 ARM SWELLED, SHORT OF BREATH morphine Allergy Severe IV--WHOLE Verified 07/27/25 09:01 ARM SWELLED, SHORT OF BREATH peanut Allergy Severe Hives Verified 09/12/25 17:15 Penicillins Allergy Intermediate Rash Verified 07/27/25 09:01 Sulfa (Sulfonamide Allergy Intermediate Rash Verified 07/27/25 09:01 Antibiotics) tetracycline Allergy Intermediate Rash Verified 07/27/25 09:01 Fish Containing Products AdvReac Nausea Verified 09/13/25 11:37 tree nut AdvReac Nausea Verified 09/13/25 14:30 Home Medications Medication Instructions Recorded Confirmed Type tirzepatide 2.5 mg/0.5 mL 2.5 mg subcut WK 07/04/25 10/16/25 History subcutaneous pen injector (Mounjaro) qfbkqtwe-wqszkhlw-kxqfn acid 240 1 tab PO DAILY 07/14/25 10/16/25 History mcg-vit K1 150 mcg-herb 357 tablet (Alive Women's 50 Plus Ultra Multivitamin) insulin glargine 100 unit/mL (3 4 unit (0.04 mL) subcut BID #0 mL 07/15/25 10/16/25 Rx mL) subcutaneous pen (Lantus Solostar U-100 Insulin) estradiol 0.01% (0.1 mg/gram) 0.5 g vaginal DAILY #42.5 grams 07/27/25 10/16/25 Rx vaginal cream (Estrace) aspirin 81 mg tablet 81 mg PO DAILY 09/12/25 10/16/25 History atorvastatin 40 mg tablet 40 mg PO DAILY 09/12/25 10/16/25 History metoprolol succinate 50 mg 50 mg PO DAILY 09/12/25 10/16/25 History tablet,extended release 24 hr acetaminophen 500 mg tablet 1,000 mg (2 x 500 mg) PO Q8H PRN 09/16/25 10/16/25 Rx (Tylenol Extra Strength) pain #30 tabs diclofenac sodium 1 % topical gel 2 g EXT QID PRN Pain in the 09/16/25 10/16/25 Rx (Voltaren Arthritis Pain) sternum #100 grams ondansetron 4 mg disintegrating 4 mg PO Q8H PRN nausea and 09/16/25 10/16/25 Rx tablet vomiting #20 tabs pantoprazole 40 mg tablet,delayed 40 mg PO QAM #30 tabs 09/16/25 10/16/25 Rx release Past Med/Surg History Problem List Acute UTI (Acute) Acute dehydration (Acute) Leukocytosis (Acute) Vomiting and diarrhea (Acute) Complicated UTI (urinary tract infection) Bladder outlet obstruction Nausea LISA (acute kidney injury) Hydroureteronephrosis (Acute) Anemia Ureteral reflux (Acute) Elevated troponin (Acute) Elevated lactic acid level (Acute) Leukocytosis (Acute) Vomiting (Acute) Acute urinary retention (Acute) Urinary incontinence CAD (coronary artery disease) Recurrent urinary tract infection (Acute) Hypertension Medical History T2DM (type 2 diabetes mellitus) Bilateral hydronephrosis History of DVT (deep vein thrombosis) Surgical History History of coronary artery bypass graft H/O heart surgery triple bypass CABG S/P urethral surgery Hx of cholecystectomy 1991 Hx of tonsillectomy 1960 Family History Father Diabetes Heart disease Hypertension Sister Diabetes Brother Diabetes Denies family history of Ovarian cancer Prostate cancer Lung cancer Colorectal cancer Stroke Social History Smoking Status: Never smoker Second Hand Exposure: No; Do You Dip or Chew Tobacco: No; Hx Alcohol Use: No Hx Substance Use: No Preferred Language: Cymro Communication Ability: Effective Visual Impairment: No Limitations Hearing Ability: Normal Oil Expeller Required: No Beliefs That Will Affect Care: None marital status: Current Living Situation: Spouse Current Living Situation Comment: current occupational status: retired How many Children do You have: 4 Other Information That Helps Us Care for You: No Feels Safe at Home: Yes Safety Concerns: Feels Safe At This Time Childhood Exposure to Second-Hand Smoke: No Diet: other Diet Comment: no carb diet caffeine: Yes during the past year weight has: decreased > 10 lbs Dental Care, Regularly: Yes Physical Activity Frequency: Daily Seatbelt Use: always Sunscreen Use: Yes Assistive Devices: None Review of Systems Review of Systems: CONST: Negative for fever, body aches and chills. HENT: Negative for neck pain/stiffness, headache, congestion, sore throat, swelling. EYES: Negative for discharge/pain or vision changes. RESP: Negative for cough/hemoptysis and shortness of breath. CV: Negative chest pain, difficulty breathing, palpitations. ABD: + pain, nausea, vomiting. : Negative increase frequency, dysuria, blood in urine or stool. MUSC: Negative for muscle aches, edema. SKIN: Negative rash, lesions/sores. NEURO: Negative headache, dizziness, weakness. Physical Exam Physical Exam: GENERAL APPEARANCE NAD, activity normal for age, well developed/ well nourished, no cyanosis, pallor, or diaphoresis. EYES lids/conjunctiva normal. EARS/NOSE/THROAT Mucous membranes moist, nares normal, lips/teeth normal uvula midline without oral pharyngeal erythema, exudate or swelling TMs normal bilaterally. No lymphangitis/lymphedema. HEAD/NECK normocephalic atraumatic, no facial trauma, neck is supple. RESPIRATORY respiratory effort normal, speaks in full sentences, no tripod position, no accessory muscle use. Lungs clear to auscultation without rhonchi, wheezes, rales CARDIAC Regular rate and rhythm, no edema. ABDOMINAL Soft, ND/NT. No evidence of fluid wave. No pulsatile masses on exam, rebound tenderness, Brown sign or pain over Mcburney's point. MUSCLES/EXTREMITIES No abnormal range of motion, no swelling. SKIN Warm, pink and dry. No rashes, dermatoses, petechiae or lesions. NEUROLOGICAL Speech is clear and appropriate. Normal level of consciousness. Gait and coordination are normal. 5/5 strength in all extremities. PSYCH Normal mood and affect. Judgement/competence is appropriate Results & Data Results & Data Vital Signs (Past 12 Hours) Vital Signs Temp Pulse Pulse Resp BP BP Pulse Ox 10/16/25 12:42 36.5 C 85 18 139/71 98 10/16/25 12:36 84 10/16/25 11:41 76 19 145/70 H 100 10/16/25 09:00 81 16 152/79 H 99 10/16/25 08:35 90 10/16/25 08:13 97 H 16 98 10/16/25 07:27 36 C L 110 H 18 150/81 H 98 O2 Del Method 10/16/25 12:42 Room Air 10/16/25 12:36 10/16/25 11:41 Room Air 10/16/25 09:00 Room Air 10/16/25 08:35 10/16/25 08:13 Room Air 10/16/25 07:27 Room Air PG Care Time/CCT Total # of Minutes Spent Total Time Spent with Patient: Total time spent is greater than 50% in coordination of care (as documented) at patient's floor/unit and/or counseling patient: Coding Level of Care Code 22094 INT INP/OBS CARE 2MIN Diagnoses Complicated UTI (urinary tract infection) N39.0 Coronary artery disease involving other coronary artery bypass graft without angina pectoris I25.810 Associated angina: without angina Coronary Disease-Associated Artery/Lesion type: bypass graft, other Hypertension I10 Type 2 diabetes mellitus without complication, with long-term current use of insulin E11.9; Z79.4 Diabetes mellitus complication status: without complication Diabetes mellitus mcfp insulin use: with mcfp use (2) CAD (coronary artery disease) Associated angina: without angina Coronary Disease-Associated Artery/Lesion type: bypass graft, other Qualified Code(s): I25.810 - Atherosclerosis of coronary artery bypass graft(s) without angina pectoris (4) T2DM (type 2 diabetes mellitus) Diabetes mellitus complication status: without complication Diabetes mellitus mcfp insulin use: with termite renewal inspector use Qualified Code(s): E11.9 - Type 2 diabetes mellitus without complications; Z79.4 - termite renewal inspector (current) use of insulin
[2025-10-16] MEDS ORDERED: GLUCOSE 10 TAB/TUBE PO PRN (14:30)
[2025-10-16] MEDS ORDERED: DEXTROSE 50% 50 ML SYRINGE IV PRN (14:30)
[2025-10-16] MEDS ORDERED: CARBOHYDRATES FOR HYPOGLYCEMIA PO PRN (14:30)
[2025-10-16] MEDS ORDERED: GLUCOSE 40% GEL 15 GM TUBE PO PRN (14:30)
[2025-10-16] MEDS ORDERED: GLUCAGON FOR INJ 1 MG VIAL SQ PRN (14:30)
[2025-10-16] MEDS: LORazepam 1 MG/1 ML SYR ED Inj Use IV STA (14:50)
[2025-10-16] MEDS: PROCHLORPERAZINE 10 MG in SYRINGE 8 ML IV PRN (15:02)
[2025-10-16] MEDS: SODIUM CHLORIDE 0.9% 500 ML IV SCH (16:21)
[2025-10-16] MEDS: HEPARIN SOD 5,000 UNIT/0.5 ML VIAL SQ SCH (16:25)
[2025-10-16] MEDS: INSULIN ASPART PER UNIT CHARGE SC SCH (17:16)
[2025-10-16] MEDS: ALUMINUM/MAGNESIUM SUSP 30 ML UDC PO PRN (17:21)
[2025-10-16] MEDS ORDERED: NON-FORMULARY MEDICATION (Insulin Glargine [Lantus Solostar U-100 Insulin] 100 unit/mL (3 SQ SCH (21:00)
[2025-10-16] MEDS: LANTUS PER UNIT CHARGE SC SCH (21:23)
[2025-10-17 04:46] LABS: Anion Gap 8.0 (3-11); Blood Urea Nitrogen 29.0 mg/dl (6-23); Calcium 8.3 mg/dl (8.6-10.3); Carbon Dioxide 19.0 mmol/L (21-32); Chloride 105.0 mmol/L (98-107); Creatinine Clr Calc Pharmacy 26.8 ml/min; Glucose 108.0 mg/dl (70-99(Fasting)); Potassium 4.3 mmol/L (3.5-5.1); Sodium 132.0 mmol/L (136-145)
[2025-10-17 05:48] LABS: Hematocrit (blood only) 31.5 % (37.0-47.0); Hemoglobin 10.1 g/dL (12.0-16.0); Immature Granulocytes # (auto) 0.06 K/uL (0.01-0.20); Immature Granulocytes % (auto) 0.4 %; Mean Corpuscular Hemoglobin 27.5 pg (25.0-34.0); Mean Corpuscular Volume 85.8 fL (80.0-100.0); Platelet Count 280 K/uL (130-400); RDW Standard Deviation 43.1 fL (36.4-46.3); Red Blood Count 3.67 M/uL (4.20-5.40); White Blood Count 14.23 K/ul (4.8-10.8)
[2025-10-17] MEDS: ACETAMINOPHEN 500 MG TAB PO PRN (07:50)
[2025-10-17] MEDS: METOPROLOL SUCC 50MG EXT REL TAB PO SCH (07:51)
[2025-10-17] MEDS: ASPIRIN 81 MG ECTAB PO SCH (07:51)
[2025-10-17] MEDS: ATORVASTATIN 40 MG TAB PO SCH (07:51)
--- NOTE | 2025-10-17 10:19 | Hospitalist Progress Note ---
Date of Service October 17, 2025 Assessment & Plan (1) Complicated UTI (urinary tract infection): Plan: -treated last month for complicated UTI 2nd to E.faecium -sensitive to daptomycin -con't daptomycin -f/u urine C&S -IVF -zofran prn -ID consulted (2) CAD (coronary artery disease): Plan: -aspirin -Lipitor (3) Hypertension: Plan: -metoprolol (4) T2DM (type 2 diabetes mellitus): Plan: -pharm consult for glycemic mangement -lantus Plan Heparin SQ for DVT px Admission and Anticipated Discharge Date Admission Date: October 16, 2025 Subjective Pt having diarrhea overnight. Review of Systems Review of Systems: CONST: Negative for fever, body aches and chills. HENT: Negative for neck pain/stiffness, headache, congestion, sore throat, swelling. EYES: Negative for discharge/pain or vision changes. RESP: Negative for cough/hemoptysis and shortness of breath. CV: Negative chest pain, difficulty breathing, palpitations. ABD: + pain, nausea, vomiting. : Negative increase frequency, dysuria, blood in urine or stool. MUSC: Negative for muscle aches, edema. SKIN: Negative rash, lesions/sores. NEURO: Negative headache, dizziness, weakness. Physical Exam Physical Exam: GENERAL APPEARANCE NAD, activity normal for age, well developed/ well nourished, no cyanosis, pallor, or diaphoresis. EYES lids/conjunctiva normal. EARS/NOSE/THROAT Mucous membranes moist, nares normal, lips/teeth normal uvula midline without oral pharyngeal erythema, exudate or swelling TMs normal bilaterally. No lymphangitis/lymphedema. HEAD/NECK normocephalic atraumatic, no facial trauma, neck is supple. RESPIRATORY respiratory effort normal, speaks in full sentences, no tripod position, no accessory muscle use. Lungs clear to auscultation without rhonchi, wheezes, rales CARDIAC Regular rate and rhythm, no edema. ABDOMINAL Soft, ND/NT. No evidence of fluid wave. No pulsatile masses on exam, rebound tenderness, Brown sign or pain over Mcburney's point. MUSCLES/EXTREMITIES No abnormal range of motion, no swelling. SKIN Warm, pink and dry. No rashes, dermatoses, petechiae or lesions. NEUROLOGICAL Speech is clear and appropriate. Normal level of consciousness. Gait and coordination are normal. 5/5 strength in all extremities. PSYCH Normal mood and affect. Judgement/competence is appropriate Results & Data Results & Data Vital Signs (Past 12 Hours) Vital Signs Temp Pulse Pulse Resp BP BP Pulse Ox 10/17/25 09:07 36.2 C L 80 20 140/70 97 10/17/25 07:00 36.6 C 90 16 137/78 96 10/16/25 23:09 36.5 C 103 H 14 122/75 93 O2 Del Method 10/17/25 09:07 Room Air 10/17/25 07:00 Room Air 10/16/25 23:09 Room Air PG Care Time/CCT Total # of Minutes Spent Total Time Spent with Patient: Total time spent is greater than 50% in coordination of care (as documented) at patient's floor/unit and/or counseling patient: Coding Level of Care Code 19864 SUB INP/OBS CARE 2/35MIN Diagnoses Complicated UTI (urinary tract infection) N39.0 Coronary artery disease involving other coronary artery bypass graft without angina pectoris I25.810 Coronary Disease-Associated Artery/Lesion type: bypass graft, other Associated angina: without angina Hypertension I10 Type 2 diabetes mellitus without complication, with long-term current use of insulin E11.9; Z79.4 Diabetes mellitus buttermaker insulin use: with nursing home use Diabetes mellitus complication status: without complication (2) CAD (coronary artery disease) Coronary Disease-Associated Artery/Lesion type: bypass graft, other Associated angina: without angina Qualified Code(s): I25.810 - Atherosclerosis of coronary artery bypass graft(s) without angina pectoris (4) T2DM (type 2 diabetes mellitus) Diabetes mellitus buttermaker insulin use: with nursing home use Diabetes mellitus complication status: without complication Qualified Code(s): E11.9 - Type 2 diabetes mellitus without complications; Z79.4 - [facility] (current) use of insulin
--- NOTE | 2025-10-17 10:39 | Infectious Disease Consult ---
Date of Consultation October 17, 2025 Assessment & Plan (1) Acute UTI: (2) Vomiting and diarrhea: Plan 70yo F with h/o recurrent UTI (most recently in Nov with linezolid x 7d for E faecium in [facility]), was previously on Macrobid suppression, chronic moderate-severe bilateral hydroureteronephrosis, chronic VUR and chronic bladder outlet obstruction, CAD s/p CABG, CKD stage III, T2DM who presented on 10/16 with nausea, vomiting, and diffuse abdominal pain. On admission, she was afebrile, tachycardic, BP stable. Initial labs with WBC 18.72, Cr 1.87, AST/ALT wnl. Lactate wnl. Trop elevated. UA with > 50 WBC. Flu/COVID neg. CXR neg. CTAP with unchanged bilateral hydronephrosis and hydroureter w/o visible obstructing calculus or mass; small left renal calculus. She was given CTX and daptomycin for UTI based on prior cx. ID consulted 10/17. # UTI # Diarrhea # H/o recurrent UTIs # h/o chronic moderate-severe bilateral hydroureteronephrosis, chronic VUR and chronic bladder outlet obstruction - if she has >3 watery stools/day, send stool for C diff - f/u blood and urine cx - Hillary stopped daptomycin - started cefepime 1g IV q12h (renally adjusted) for E cloacae from [facility] - final regimen pending cx results Will continue to follow. Christin Gaytan MD [facility], Division of Infectious Diseases [facility]: [phone] Consultation Information Consultation was provided via telemedicine using two-way real-time interactive telecommunication between the patient and the telemedicine provider. For the duration of the visit, the provider was performing the assessment from a different facility than the patient. This includesuse of bluetooth stethoscope forauscultationperformed by the telepresenter that the telemedicine provider can hear if described in the physical exam. Patient Support Partner contact information: Please call [facility] Call Center [phone]. (Phone Number For Physician Use Only) After establishing a telemedicine visit, patient was: Patient was verified with two unique identifiers, Patient/authorized rep acknowledged consent and understanding and Gave permission to continue telehealth session Time Spent with Patient: Initial => 75 min History of Present Illness Reason for Consultation: complicated UTI Attending Physician: Reinaldo Saldana MD History of Present Illness 70yo F with h/o recurrent UTI (most recently in Nov with linezolid x 7d for E faecium in [facility]), was previously on Macrobid suppression, chronic moderate-severe bilateral hydroureteronephrosis, chronic VUR and chronic bladder outlet obstruction, CAD s/p CABG, CKD stage III, T2DM who presented on 10/16 with nausea, vomiting, and diffuse abdominal pain. Note, she was previously referred to reconstructive urologist, who felt that she had bladder outlet obstruction which should be managed with CIC or garcía. It was felt that ureteral reimplant would be futile and would not improve her urinary retention. Pt was adamant against this. On admission, she was afebrile, tachycardic, BP stable. Initial labs with WBC 18.72, Cr 1.87, AST/ALT wnl. Lactate wnl. Trop elevated. UA with > 50 WBC. Flu/COVID neg. CXR neg. CTAP with unchanged bilateral hydronephrosis and hydroureter w/o visible obstructing calculus or mass; small left renal calculus. She was given CTX and daptomycin for UTI based on prior cx. ID consulted 10/17. On evaluation, patient reports that she had a flu from 10/12-10/14 and had associated vomiting, diarrhea. She subsequently developed abdominal pain that went across abdomen along with pain in her back, more so on the left. She was c/f UTI since this felt similar and came to the ED. She has not had any dysuria or urinary frequency. This morning, she reports c/f change in her diarrhea where it seems worse. Had 2 episodes of watery stools this am. She feels her abdominal pain is better with Tylenol. Allergies Allergy/AdvReac Type Severity Reaction Status Date / Time banana Allergy Severe Vomiting Unverified 07/27/25 09:01 Beef Containing Products Allergy Severe Vomiting Unverified 07/27/25 09:01 codeine Allergy Severe IV--WHOLE Verified 07/27/25 09:01 ARM SWELLED, SHORT OF BREATH morphine Allergy Severe IV--WHOLE Verified 07/27/25 09:01 ARM SWELLED, SHORT OF BREATH peanut Allergy Severe Hives Verified 09/12/25 17:15 Penicillins Allergy Intermediate Rash Verified 07/27/25 09:01 Sulfa (Sulfonamide Allergy Intermediate Rash Verified 07/27/25 09:01 Antibiotics) tetracycline Allergy Intermediate Rash Verified 07/27/25 09:01 Fish Containing Products AdvReac Nausea Verified 09/13/25 11:37 tree nut AdvReac Nausea Verified 09/13/25 14:30 Home Medications Medication Instructions Recorded Confirmed Type tirzepatide 2.5 mg/0.5 mL 2.5 mg subcut WK 07/04/25 10/16/25 History subcutaneous pen injector (Mounjaro) ybuelkgz-yfnpprqi-lagvz acid 240 1 tab PO DAILY 07/14/25 10/16/25 History mcg-vit K1 150 mcg-herb 357 tablet (Alive Women's 50 Plus Ultra Multivitamin) insulin glargine 100 unit/mL (3 4 unit (0.04 mL) subcut BID #0 mL 07/15/25 10/16/25 Rx mL) subcutaneous pen (Lantus Solostar U-100 Insulin) estradiol 0.01% (0.1 mg/gram) 0.5 g vaginal DAILY #42.5 grams 07/27/25 10/16/25 Rx vaginal cream (Estrace) aspirin 81 mg tablet 81 mg PO DAILY 09/12/25 10/16/25 History atorvastatin 40 mg tablet 40 mg PO DAILY 09/12/25 10/16/25 History metoprolol succinate 50 mg 50 mg PO DAILY 09/12/25 10/16/25 History tablet,extended release 24 hr acetaminophen 500 mg tablet 1,000 mg (2 x 500 mg) PO Q8H PRN 09/16/25 10/16/25 Rx (Tylenol Extra Strength) pain #30 tabs diclofenac sodium 1 % topical gel 2 g EXT QID PRN Pain in the 09/16/25 10/16/25 Rx (Voltaren Arthritis Pain) sternum #100 grams ondansetron 4 mg disintegrating 4 mg PO Q8H PRN nausea and 09/16/25 10/16/25 Rx tablet vomiting #20 tabs pantoprazole 40 mg tablet,delayed 40 mg PO QAM #30 tabs 09/16/25 10/16/25 Rx release Patient History Medical History T2DM (type 2 diabetes mellitus) Bilateral hydronephrosis History of DVT (deep vein thrombosis) Surgical History History of coronary artery bypass graft H/O heart surgery triple bypass CABG S/P urethral surgery Hx of cholecystectomy 1991 Hx of tonsillectomy 1960 Family History Father Diabetes Heart disease Hypertension Sister Diabetes Brother Diabetes Denies family history of Ovarian cancer Prostate cancer Lung cancer Colorectal cancer Stroke Social History Smoking Status: Never smoker Second Hand Exposure: No; Do You Dip or Chew Tobacco: No; Hx Alcohol Use: No Hx Substance Use: No Preferred Language: Hebrew Communication Ability: Effective Visual Impairment: No Limitations Hearing Ability: Normal Behavioral Health Technician Required: No Beliefs That Will Affect Care: None marital status: Current Living Situation: Spouse Current Living Situation Comment: current occupational status: retired How many Children do You have: 4 Other Information That Helps Us Care for You: No Feels Safe at Home: Yes Safety Concerns: Feels Safe At This Time Childhood Exposure to Second-Hand Smoke: No Diet: other Diet Comment: no carb diet caffeine: Yes during the past year weight has: decreased > 10 lbs Dental Care, Regularly: Yes Physical Activity Frequency: Daily Seatbelt Use: always Sunscreen Use: Yes Assistive Devices: None Review of System 10-point review of systems reviewed and are negative except for as above. Physical Exam Physical Exam: General: Awake, alert, no acute distress HEENT: NC/AT, EOMI, mmm Neck: supple, no LAD Lungs: respirations non-labored Heart: nl peripheral perfusion Abdomen: soft, ttp in lower abdomen Back: no spinal tenderness, +ttp bl CVA Ext: no LE edema Skin: no rash Neuro: moving all extremities Results & Data Vital Signs (Past 12 Hours) Vital Signs Temp Pulse Pulse Resp BP BP Pulse Ox 10/17/25 09:07 36.2 C L 80 20 140/70 97 10/17/25 07:00 36.6 C 90 16 137/78 96 10/16/25 23:09 36.5 C 103 H 14 122/75 93 O2 Del Method 10/17/25 09:07 Room Air 10/17/25 07:00 Room Air 10/16/25 23:09 Room Air Laboratory Results Labs reviewed. Diagnostic Findings Imaging reviewed.
[2025-10-17] MEDS: ADVANCED PROBIOTIC 625 MG CAPSULE PO SCH (11:08)
[2025-10-17] MEDS: CEFEPIME 2000MG 2,000 MG/20 ML SYR IV SCH (11:08)
[2025-10-17] MEDS ORDERED: DAPTOmycin 400 MG in SYRINGE 0 ML IV SCH (12:00)
--- NOTE | 2025-10-17 13:19 | Pharmacy Report ---
Pharmacy Glycemic Short Note 2 - Date of Service October 17, 2025 - Glycemic Short BSG Results (Last 24 hours): 10/16/25 10/16/25 10/17/25 16:28 20:46 03:40 Glucose 108 H POC Glucose 99 134 H 10/17/25 10/17/25 07:06 11:06 Glucose POC Glucose 190 H 93 OUTPATIENT ANTIDIABETIC REGIMEN: * Lantus 4 units SQ BID * Mounjaro 2.5mg SQ weekly HbA1c: 6.3% on 09/13/25 ASSESSMENT: * Estrellita is a 70 year old female who was admitted last night with a complicated UTI. Pharmacy was consulted for glycemic management while she is admitted. * BSG at HS was 134mg/dL. A Lantus scale (0 or 4 units depending on BSG) was added at HS and a weight based bolus insulin regimen with a stress of ~1 was started. * Fasting BSG was 190mg/dL this morning and dropped to 93mg/dL at lunch after only receiving 3 units of bolus insulin. Removed carb ratio coverage from the bolus insulin regimen. Will continue Lantus scale at HS. PLAN FOR INPATIENT GLYCEMIC CONTROL: * Hold outpatient diabetes medications * Basal insulin * Lantus scale at HS (0 or 4 units depending on BSG) * Bolus insulin * NovoLog per scale ACHS or Q6hrs while NPO * Goal Range: Low 120 mg/dL - High 150 mg/dL * Correction Factor: 45 mg/dL/unit * Nutritional / Prandial insulin per carb ratio : NONE
[2025-10-17 14:53] VITALS: RESP 16
[2025-10-17] MEDS: CEFEPIME 1000MG 1,000 MG/10 ML SYR IV SCH (23:09)
[2025-10-18 07:54] VITALS: BP 154/73; PULSE 73; TEMP 97.7; O2SAT 98
[2025-10-18 08:09] LABS: Anion Gap 9.0 (3-11); Blood Urea Nitrogen 39.0 mg/dl (6-23); Calcium 9.0 mg/dl (8.6-10.3); Carbon Dioxide 19.0 mmol/L (21-32); Chloride 107.0 mmol/L (98-107); Creatinine Clr Calc Pharmacy 25.1 ml/min; Glucose 112.0 mg/dl (70-99(Fasting)); Potassium 4.2 mmol/L (3.5-5.1); Sodium 135.0 mmol/L (136-145)
--- NOTE | 2025-10-18 09:15 | Infectious Disease Progress Nt ---
Date of Service October 18, 2025 Assessment & Plan (1) Acute UTI: (2) Vomiting and diarrhea: Plan 70yo F with h/o recurrent UTI (most recently in Nov with linezolid x 7d for E faecium in UCx), was previously on Macrobid suppression, chronic moderate-severe bilateral hydroureteronephrosis, chronic VUR and chronic bladder outlet obstruction, CAD s/p CABG, CKD stage III, T2DM who presented on 10/16 with nausea, vomiting, and diffuse abdominal pain. On admission, she was afebrile, tachycardic, BP stable. Initial labs with WBC 18.72, Cr 1.87, AST/ALT wnl. Lactate wnl. Trop elevated. UA with > 50 WBC. Flu/COVID neg. CXR neg. CTAP with unchanged bilateral hydronephrosis and hydroureter w/o visible obstructing calculus or mass; small left renal calculus. She was given CTX and daptomycin for UTI based on prior cx. ID consulted 10/17. UCx with E cloacae. Abx changed to cefepime. She reported diarrhea, C diff is ordered but hasnt been sent. Per I/O, no BM since yesterday morning. # UTI 2/2 E cloacae # Diarrhea on 10/17 # H/o recurrent UTIs # h/o chronic moderate-severe bilateral hydroureteronephrosis, chronic VUR and chronic bladder outlet obstruction - if she has >3 watery stools/day, send stool for C diff - f/u blood cx so far ngtd - continue cefepime 1g IV q12h (renally adjusted) for E cloacae - plan to treat for 7 days starting 10/17 (end 10/23), which can be done with ciprofloxacin 500mg PO bid (QTc is 439) Will discontinue active follow up at this time. Please do not hesitate to reconsult the Infectious Diseases service as needed. Christin Gaytan MD [facility], Division of Infectious Diseases [employer]: [phone] Admission and Anticipated Discharge Date Admission Date: October 16, 2025 Subjective This patient recommendation is based on a telemedicine consult request which was completed asynchronously through chart review and information provided by the primary physician. The patient was not seen or examined today. The evaluation is consultative in nature and all patient care and treatment decisions can either be accepted or rejected by the patient's primary hospital-based treating physician using their own independent medical judgment for their patient. Time Spent Reviewing Chart: 21 - 30 minutes Afebrile, WBC downtrending Results & Data Vital Signs (Past 12 Hours) Vital Signs Temp Pulse Resp BP BP Pulse Ox O2 Del Method 10/18/25 07:45 36.5 C 73 16 154/73 H 98 Room Air 10/17/25 22:54 36.3 C L 64 16 102/61 95 Room Air Laboratory Results Labs reviewed.
--- NOTE | 2025-10-18 09:50 | Discharge Summary ---
Discharge Summary Date of Service October 18, 2025 Principal Dx & Hospital Course #1 = Principal Diagnosis (1) Complicated UTI (urinary tract infection): -treated last month for complicated UTI 2nd to E.faecium -sensitive to daptomycin -con't daptomycin -f/u urine C&S -IVF -zofran prn -ID consult appreciated -d/c home on cipro 500mg PO BID till 10/23 (2) CAD (coronary artery disease): -aspirin -Lipitor (3) Hypertension: -metoprolol (4) T2DM (type 2 diabetes mellitus): -pharm consult for glycemic mangement -lantus Plan Heparin SQ for DVT px Admission HPI Per Admitting Provider Pt is a 70-year-old female with a history of recurrent UTI, chronic moderate- severe bilateral hydroureteronephrosis, chronic VUR and chronic bladder outlet obstruction, CAD s/p CABG, CKD stage III, DM 2, who presents with 3 days of nausea/vomiting and diffuse abdominal pain. Pt was treated last month for complicated UTI 2nd to E.faecium. In the ER patient was found to have WBC 18 with UA + for UTI. Previous urine culture showed sensitives to daptomycin. Pt was given daptomycin and rocephin in the ER and will be admitted for further treatment of recurrent complicated UTI. Discharge Exam GENERAL APPEARANCE NAD, activity normal for age, well developed/ well nourished, no cyanosis, pallor, or diaphoresis. EYES lids/conjunctiva normal. EARS/NOSE/THROAT Mucous membranes moist, nares normal, lips/teeth normal uvula midline without oral pharyngeal erythema, exudate or swelling TMs normal bilaterally. No lymphangitis/lymphedema. HEAD/NECK normocephalic atraumatic, no facial trauma, neck is supple. RESPIRATORY respiratory effort normal, speaks in full sentences, no tripod position, no accessory muscle use. Lungs clear to auscultation without rhonchi, wheezes, rales CARDIAC Regular rate and rhythm, no edema. ABDOMINAL Soft, ND/NT. No evidence of fluid wave. No pulsatile masses on exam, rebound tenderness, Brown sign or pain over Mcburney's point. MUSCLES/EXTREMITIES No abnormal range of motion, no swelling. SKIN Warm, pink and dry. No rashes, dermatoses, petechiae or lesions. NEUROLOGICAL Speech is clear and appropriate. Normal level of consciousness. Gait and coordination are normal. 5/5 strength in all extremities. PSYCH Normal mood and affect. Judgement/competence is appropriate Discharge Plan Discharge Items Patient Disposition: Home - Self-Care Reason For Visit: NAUSEA, VOMITING Discharge Diagnosis: UTI Condition on Discharge: Fair Activity: Resume your previous activity Non-emergency contact: Primary Care Provider Call non-emergency contact if: you have any medication questions Follow-up/Referrals: Rosie Lowe DO [Primary Care Provider] - Diet: Regular Addtl Attending Provider Instructions: Follow up with PMD in 1 week Pending Studies at Discharge: No Stand-Alone Forms: My [facility] Epicrisis, Smoking Cessation Medications and DC Order Prescriptions: New ciprofloxacin HCl [Cipro] 500 mg tablet 500 mg PO BID Qty: 10 0RF Continued estradiol [Estrace] 0.01 % (0.1 mg/gram) cream 0.5 g vaginal DAILY Qty: 42.5 2RF Rx Instructions: for 14 days Mounjaro 2.5 mg/0.5 mL pen injector 2.5 mg SUBCUT WK Rx Instructions: THURSDAYS aspirin 81 mg Tablet 81 mg PO DAILY atorvastatin 40 mg Tablet 40 mg PO DAILY metoprolol succinate 50 mg Tablet Extended Release 24 Hr 50 mg PO DAILY acetaminophen [Tylenol Extra Strength] 500 mg Tablet 1,000 mg PO Q8H PRN (Reason: pain) Qty: 30 0RF Rx Instructions: [id number] diclofenac sodium [Voltaren Arthritis Pain] 1 % Gel 2 g EXT QID PRN (Reason: Pain in the sternum) Qty: 100 0RF Rx Instructions: Please give tube from the hospital pantoprazole 40 mg Tablet,Delayed Release (Dr/Ec) 40 mg PO QAM Qty: 30 0RF ondansetron 4 mg tablet,disintegrating 4 mg PO Q8H PRN (Reason: nausea and vomiting) Qty: 20 0RF Alive Women's 50 Plus Ultra MV 240-150 mcg Tablet 1 tab PO DAILY insulin glargine [Lantus Solostar U-100 Insulin] 100 unit/mL (3 mL) Insulin Pen 4 unit SUBCUT BID Qty: 0 0RF Discharge Orders: Discharge Order (Routine); Ordered 10/18/25 Ordered By: Reinaldo Saldana Admission Data Admit Date/Time: 10/16/25 12:58 Attending Provider: Reinaldo Saldana Admit Provider: Reinaldo Saldana Primary Care Provider: Rosie Lowe Other Providers: Ciro Nicholson; Reinaldo Saldana; Anat Rivera; Christin Gaytan; Rosemarie Haq; Guillermina Salazar; Renetta Gale; [facility]encor [facility] Stay Data Consultations 10/16/25 12:20 ED Decision to Admit Stat 10/16/25 12:28 ED Decision to Admit Stat 10/16/25 13:23 Consult Infectious Diseases Routine Diagnostic Imagining Performed 10/16/25 09:07 CT abd pelvis wo con Stat Pending Results Patient Have Any Pending Studies at Discharge: No Discharge Instructions Given to Patient (Per Discharging Provider) Follow up with PMD in 1 week Total Time Total Time Spent Total Time Spent (In Minutes): 50 Coding Level of Care Code 22042 INP/OBS DISCH >30 MIN Diagnoses Complicated UTI (urinary tract infection) N39.0 Coronary artery disease involving other coronary artery bypass graft without angina pectoris I25.810 Coronary Disease-Associated Artery/Lesion type: bypass graft, other Associated angina: without angina Hypertension I10 Type 2 diabetes mellitus without complication, with long-term current use of insulin E11.9; Z79.4 Diabetes mellitus mcc insulin use: with keno terminal operator use Diabetes mellitus complication status: without complication
== END 2025-10-18 12:46 | disposition home or self-care (01) | DRG 690 ==
LOC: ED 07:20 → 3E 12:58 → INTOOBSV 12:58 → 3E 15:01

== ENCOUNTER 2025-10-21 10:01 | Inpatient (IN) ==
--- NOTE | 2025-10-21 10:43 | Emergency Department Note ---
Impression & Plan Intractable vomiting with nausea, Elevated troponin, Acute dehydration, Abdominal pain, bilateral lower quadrant ED Provider Note Name: GINNA ANGUIANO Age: 70 Sex: Female Arrives Via: Walk-In Informant: Patient, ED Provider: Ashwin Obrien MD Chief Complaint: Illness Impression: As per impression above Medical Decision Makin-year-old female recently discharged from hospital for weakness and UTI. She arrives with rapid worsening of diffuse bodyaches in particular in her lower abdomen radiating to her back for the last week 2 days. Was exposed to her niece who reportedly had flulike illness. Patient does have a mild cough congestion however is not significantly hypoxic or significant respiratory distress on arrival. Examination is most consistent with lower abdominal tenderness palpation and dehydration. SHe was givein IV fluids and started making some urine. Patient also given some IV Tylenol and IV Zofran. This did not help with the either the pain or the nausea. She was given a small dose of IV fentanyl with improvement in her pain though did become a bit hypoxic. She was also given some IV Phenergan with mild improvement as well. Patient continues to states she is feeling quite unwell. I do not think she will do well at home. Her CT does show a fair amount of urinary retention and thus we will place Chavez catheter. My suspicion is she has persistent infection and with her inability to tolerate p.o. will need hospitalization unfortunately. Of note patient's troponin is somewhat elevated. She is not having any chest pain. Her EKG is not consistent with ACS. She is not significantly short of breath. I have a low index of suspicion of PE and would defer imaging especially given her chronic renal issues. Triage/Nursing Notes reviewed by Me External Chart Review by me: Discharge summary from 10/17/2025 reviewed by me Differential:Infection, dehydration, metabolic abnormality, hypo/hyperglycemia, electrolyte disturbance, anemia, hypoxia, cardiac sources, intracerebral event, toxicologic, neurologic, as well as other pathologies. Vital Signs: reviewed and remarkable for no significant abnormalities Interventions: Normal saline bolus, Tylenol IV, Zofran IV, Phenergan IV, fentanyl IV, cefepime IV Labs:ED labs Reviewed by me and remarkable for elevated troponin Imagin view chest x-ray as per my interpretation no infiltrate or effusion appreciated EKG:As per my interpretation. Indication weakness. Normal sinus rhythm at 89 bpm QTc 479. There is no ectopy no ischemia. Compared to an EKG of October 16, 2025 no significant change no Cardiac/Tele Monitoring: Cardiac Monitoring: An Order was placed for continuous cardiac monitoring. The monitor shows a rate of 80 with a normal sinus rhythm. Consults:Discussed with Dr. Shana BIRD Hospitalist: will evaluate and managed Plan: Disposition:Hospitalization. Condition: Fair History of Present Illness: 70-year-old female arrives for evaluation of weakness. Patient with recent hospitalization for UTI sepsis. She was discharged 72 hours ago. The following day she was with her niece who was ill with flulike illness. Yesterday patient started develop illness once again. Associated nausea, vomiting, fatigue, weakness, lightheadedness, abdominal pain, urinary burning and generalized malaise. Notes she has been having a bit of a worsening cough congestion. No measured fevers but is having chills. Patient states she is feeling quite unwell and is unable to keep down any of her medications including antibiotics that were prescribed for her UTI (Cipro). Past Medical History:See Below Home Medications:See Below Allergies:See Below Vitals:Blood Pressure: 156/104, Pulse 95, RR 20, T 36.6C, O2 100% on RA Physical Exam: GENERAL: Patient is unwell/dehydrated appearing and in moderate distress. RESPIRATORY: No dyspnea. Clear to auscultation and equal bilaterally. CARDIOVASCULAR: Tachycardia.No murmur appreciated. GASTROINTESTINAL: Moderate lower abdominal tenderness to palpation bilaterally without overt peritonitis. EXTREMITIES: Normal motion all extremities, no cyanosis, no edema. NEUROLOGIC: Alert and oriented. No focal neurologic deficits appreciated SKIN: No rash, no jaundice, no diaphoresis. PSYCH: Appropriate GCS: 15 ED Course: Times/Reassessments: Patient notes persistent of illness that has improved somewhat with the IV pain medicine Ashwin Obrien MD Past Med/Surg History Problem List (Updated 10/21/25 @ 14:44 by Ashwin Obrien MD) Abdominal pain, bilateral lower quadrant (Acute) Acute dehydration (Acute) Elevated troponin (Acute) Intractable vomiting with nausea (Acute) Acute UTI (Acute) Acute dehydration (Acute) Leukocytosis (Acute) Vomiting and diarrhea (Acute) Complicated UTI (urinary tract infection) Bladder outlet obstruction Nausea Hydroureteronephrosis (Acute) Anemia Ureteral reflux (Acute) Elevated troponin (Acute) Elevated lactic acid level (Acute) Leukocytosis (Acute) Acute urinary retention (Acute) Urinary incontinence CAD (coronary artery disease) Recurrent urinary tract infection (Acute) Hypertension Medical History T2DM (type 2 diabetes mellitus) Bilateral hydronephrosis History of DVT (deep vein thrombosis) Surgical History History of coronary artery bypass graft H/O heart surgery triple bypass CABG S/P urethral surgery Hx of cholecystectomy 1991 Hx of tonsillectomy 1960 Family History Father Diabetes Heart disease Hypertension Sister Diabetes Brother Diabetes Denies family history of Ovarian cancer Prostate cancer Lung cancer Colorectal cancer Stroke Social History Smoking Status: Never smoker Second Hand Exposure: No; Do You Dip or Chew Tobacco: No; Hx Alcohol Use: No Hx Substance Use: No Preferred Language: Croatian Communication Ability: Effective Visual Impairment: No Limitations Hearing Ability: Normal Health Sciences Dean Required: No Beliefs That Will Affect Care: None marital status: Current Living Situation: Spouse Current Living Situation Comment: current occupational status: retired How many Children do You have: 4 Feels Safe at Home: Yes Childhood Exposure to Second-Hand Smoke: No Diet: other Diet Comment: no carb diet caffeine: Yes during the past year weight has: decreased > 10 lbs Dental Care, Regularly: Yes Physical Activity Frequency: Daily Seatbelt Use: always Sunscreen Use: Yes Assistive Devices: Cane Allergies Allergies Allergy/AdvReac Type Severity Reaction Status Date / Time banana Allergy Severe Vomiting Unverified 07/27/25 09:01 Beef Containing Products Allergy Severe Vomiting Unverified 07/27/25 09:01 codeine Allergy Severe IV--WHOLE Verified 07/27/25 09:01 ARM SWELLED, SHORT OF BREATH morphine Allergy Severe IV--WHOLE Verified 07/27/25 09:01 ARM SWELLED, SHORT OF BREATH peanut Allergy Severe Hives Verified 09/12/25 17:15 Penicillins Allergy Intermediate Rash Verified 07/27/25 09:01 Sulfa (Sulfonamide Allergy Intermediate Rash Verified 07/27/25 09:01 Antibiotics) tetracycline Allergy Intermediate Rash Verified 07/27/25 09:01 Fish Containing Products AdvReac Nausea Verified 09/13/25 11:37 tree nut AdvReac Nausea Verified 09/13/25 14:30 Home Meds Home Medications Medication Instructions Recorded Confirmed tirzepatide 2.5 mg/0.5 mL 2.5 mg subcut WK 07/04/25 10/21/25 subcutaneous pen injector (Jeffrey) qgsdlptx-wggeofnz-ndrnd acid 240 1 tab PO DAILY 07/14/25 10/21/25 mcg-vit K1 150 mcg-herb 357 tablet (Alive Women's 50 Plus Ultra Multivitamin) aspirin 81 mg tablet 81 mg PO DAILY 09/12/25 10/21/25 atorvastatin 40 mg tablet 40 mg PO DAILY 09/12/25 10/21/25 metoprolol succinate 50 mg 50 mg PO DAILY 09/12/25 10/21/25 tablet,extended release 24 hr Previous Rx's Medication Instructions Recorded insulin glargine 100 unit/mL (3 4 unit (0.04 mL) subcut BID #0 mL 07/15/25 mL) subcutaneous pen (Lantus Solostar U-100 Insulin) estradiol 0.01% (0.1 mg/gram) 0.5 g vaginal DAILY #42.5 grams 07/27/25 vaginal cream (Estrace) acetaminophen 500 mg tablet 1,000 mg (2 x 500 mg) PO Q8H PRN 09/16/25 (Tylenol Extra Strength) pain #30 tabs diclofenac sodium 1 % topical gel 2 g EXT QID PRN Pain in the 09/16/25 (Voltaren Arthritis Pain) sternum #100 grams ondansetron 4 mg disintegrating 4 mg PO Q8H PRN nausea and 09/16/25 tablet vomiting #20 tabs pantoprazole 40 mg tablet,delayed 40 mg PO QAM #30 tabs 09/16/25 release ciprofloxacin HCl 500 mg tablet 500 mg PO BID #10 tabs 10/18/25 (Cipro) Results & Data (ED) Vital Signs Vital Signs - 24 hr 10/21/25 10:20 10/21/25 11:30 10/21/25 11:41 Temperature 36.6 C Temperature Source Skin Pulse Rate 95 H 84 83 Pulse Rhythm Respiratory Rate 20 21 Respiratory Effort / Characteristics Non-Labored Spontaneous Respiratory Depth Normal Respiratory Pattern Regular Blood Pressure 156/104 H 210/103 H Blood Pressure Mean 121 132 Pulse Oximetry 100 100 Oxygen Delivery Method Room Air Room Air Oxygen Flow Rate Sepsis Recent Fever Within 48 Hours No Sepsis New/Unexplained Change in Mental Status N/A Sepsis Action Taken by Nursing No Action Required 10/21/25 12:19 10/21/25 12:48 10/21/25 13:00 Temperature Temperature Source Pulse Rate 82 76 73 Pulse Rhythm Regular Respiratory Rate 14 19 19 Respiratory Effort / Characteristics Respiratory Depth Respiratory Pattern Blood Pressure 195/97 H 195/94 H Blood Pressure Mean 147 151 Pulse Oximetry 100 100 100 Oxygen Delivery Method Room Air Room Air Nasal Cannula Oxygen Flow Rate 1 Sepsis Recent Fever Within 48 Hours Sepsis New/Unexplained Change in Mental Status Sepsis Action Taken by Nursing 10/21/25 13:30 10/21/25 14:01 Temperature Temperature Source Pulse Rate 72 78 Pulse Rhythm Respiratory Rate 17 21 Respiratory Effort / Characteristics Respiratory Depth Respiratory Pattern Blood Pressure 184/92 H 199/106 H Blood Pressure Mean 117 127 Pulse Oximetry 100 100 Oxygen Delivery Method Nasal Cannula Room Air Oxygen Flow Rate 1 Sepsis Recent Fever Within 48 Hours Sepsis New/Unexplained Change in Mental Status Sepsis Action Taken by Nursing Laboratory Data 10/21/25 11:53 10/21/25 11:53 Lab Results 10/21/25 10/21/25 10/21/25 Range/Units 10:42 11:53 14:05 WBC 8.98 (4.8-10.8) K/ul RBC 4.47 (4.20-5.40) M/uL Hgb 12.3 (12.0-16.0) g/dL Hct 37.0 (37.0-47.0) % MCV 82.8 (80.0-100.0) fL MCH 27.5 (25.0-34.0) pg MCHC 33.2 (32.0-36.0) g/dL RDW Std Deviation 41.5 (36.4-46.3) fL RDW Coeff of Maria A 13.9 (11.5-14.5) % Plt Count 453 H (130-400) K/uL MPV 9.6 (9.4-12.4) fL Immature Gran % (Auto) 0.4 % Neut % (Auto) 71.8 % Lymph % (Auto) 20.6 % [place] % (Auto) 5.5 % Eos % (Auto) 1.0 % Baso % (Auto) 0.7 % Neut # (Auto) 6.45 (1.40-6.50) K/uL Lymph # (Auto) 1.85 (1.20-3.40) K/uL [place] # (Auto) 0.49 (0.11-0.59) K/uL Eos # (Auto) 0.09 (0.00-0.50) K/uL Baso # (Auto) 0.06 (0.00-0.20) K/uL Immature Gran # (Auto) 0.04 (0.01-0.20) K/uL Sodium 138 (136-145) mmol/L Potassium 3.7 (3.5-5.1) mmol/L Chloride 107 (98-107) mmol/L Carbon Dioxide 20 L (21-32) mmol/L Anion Gap 11 (3-11) BUN 29 H (6-23) mg/dl Creatinine 1.46 H (0.6-1.2) mg/dl Est Cr Clr Drug Dosing 32.0 ml/min eGFR 38.49 BUN/Creatinine Ratio 19.9 (10-20) Glucose 172 H (70-99(Fasting)) mg/dl Lactate 1.6 (0.4-2.0) mmol/L Calcium 9.5 (8.6-10.3) mg/dl Magnesium 1.8 (1.7-2.4) mg/dl Total Bilirubin 0.5 (0.2-1.0) mg/dl Direct Bilirubin 0.1 (0-0.2) mg/dl AST 19 (13-39) U/L ALT 19 (7-52) U/L Alkaline Phosphatase 86 (34-104) U/L Troponin I High Sens 85.9 H* (0-14) pg/ml Total Protein 8.0 (6.0-8.3) gm/dl Albumin 3.5 (3.4-5.0) gm/dl Procalcitonin 0.38 (0-0.5) ng/ml Urine Color Yellow Urine Appearance Cloudy A (Clear) Urine pH 5.5 (4.5-7.5) Ur Specific [place] 1.010 (1.000-1.030) Urine Protein 2+ H (Negative) Urine Glucose (UA) Negative (Negative) Urine Ketones Negative (Negative) Urine Blood 1+ H (Negative) Urine Nitrite Negative (Negative) Urine Bilirubin Negative (Negative) Urine Urobilinogen Negative (Negative) Ur Leukocyte Esterase 3+ H (Negative) Urine WBC (Auto) >50 H (0-5) /hpf Urine RBC (Auto) 3-5 H (0-2) /hpf U Hyaline Cast (Auto) 3-5 H (0-2) /lpf U Epithel Cells (Auto) 0-2 (0-2) /hpf Urine Bacteria (Auto) 1+ H (None Seen) Urine Yeast Present A (None Prsent) Urine Comment SARS-CoV-2 (PCR) NEGATIVE (Negative) Influenza Type A (PCR) Negative (Neg) Influenza Type B (PCR) Negative (Neg) RSV (RT-PCR) Negative (Neg) Administered Medications Discontinued Medications Fentanyl Citrate (Fentanyl Citrate Pf 100 Mcg/2 Ml Vial) 50 mcg IV NOW STA Stop: 10/21/25 12:31 Last Admin: 10/21/25 12:46 Dose: 50 mcg Documented By: EMILIO Sodium Chloride (Nss) 1,000 mls @ 999 mls/hr IV .Q1H1M ONE Stop: 10/21/25 11:39 Last Infusion: 10/21/25 14:00 Dose: Infused Documented By: Admin: 10/21/25 11:22 Dose: 999 mls/hr Documented By: EMILIO Acetaminophen (Ofirmev) 1,000 mg in 100 mls @ 400 mls/hr IV NOW STA Stop: 10/21/25 12:09 Last Infusion: 10/21/25 12:45 Dose: Infused Documented By: Admin: 10/21/25 12:10 Dose: 400 mls/hr Documented By: EMILIO Promethazine HCl (Phenergan) 12.5 mg in 50.5 mls @ 202 mls/hr IV NOW STA Stop: 10/21/25 13:13 Last Admin: 10/21/25 14:02 Dose: 202 mls/hr Documented By: EMILIO Cefepime HCl (Maxipime 2000mg) 2,000 mg in 20 mls @ 5 mls/min IV NOW STA; Protocol Stop: 10/21/25 14:00 Last Admin: 10/21/25 14:32 Dose: 5 mls/min Documented By: JOAQUIN Ondansetron HCl (Ondansetron Inj 2 Mg/Ml 2 Ml Vial) 4 mg IV NOW STA Stop: 10/21/25 10:40 Last Admin: 10/21/25 11:22 Dose: 4 mg Documented By: FG Imaging Data Radiologist's Impression: Chest X-Ray 10/21/25 10:39 XR chest 1V portable CLINICAL HISTORY: Sepsis COMPARISON STUDY: 10/16/2025 FINDINGS: Stable CABG. Stable mild cardiomegaly without pulmonary vascular congestion. No consolidation or pleural effusion seen. No pneumothorax. IMPRESSION: No acute findings. ACT 112: Negative or not required by law. Electronically signed by: Demetrius Aguilar M.D. 10/21/2025 11:44 AM Abdomen/Pelvis CT 10/21/25 12:54 CT SCAN OF THE ABDOMEN AND PELVIS WITHOUT IV CONTRAST CLINICAL HISTORY: Lower abdominal pain. COMPARISON STUDY: Abdominal CT dated 10/16/2025. TECHNIQUE: CT scan of the abdomen and pelvis is performed from the lung bases to the proximal femora. Images are reviewed in the axial, sagittal, and coronal planes. IV contrast was not administered for this examination. Limited examination due to suboptimal oral and IV contrast. A dose lowering technique was utilized adhering to the principles of ALARA. CT DOSE: 634.97 mGy.cm FINDINGS: Lung bases: The heart is enlarged noting trace pericardial effusion. The coronary arteries are densely calcified. There is a tiny hiatal hernia. The lung bases are clear noting bibasilar scarring/atelectasis. Liver: The unenhanced liver is normal in size, contour, and attenuation. There is no intrahepatic biliary ductal dilatation. Gallbladder: Surgically absent noting clips in the gallbladder fossa. Spleen: Normal in size and attenuation. Pancreas: The unenhanced pancreas is grossly unremarkable. Adrenal glands: Unremarkable. Kidneys: The unenhanced kidneys are normal in size. There is severe bilateral hydroureteronephrosis. The ureters are dilated to level of the distended bladder. No obstructing stone or lesion is clearly seen. A punctate nonobstructing stone is seen in the left upper pole. No right renal calculi are identified and no ureteral stone is seen. There is no evidence of contour deforming renal mass lesion. Abdominal vasculature: The abdominal aorta is normal in course and caliber noting advanced atherosclerotic calcification. Bowel: There is moderate colonic diverticulosis without CT evidence of acute diverticulitis. No bowel obstruction is seen. Mild to moderate fecal tension is noted throughout the colon. The appendix is well-visualized and normal. Peritoneum: There is no intraperitoneal free air or abdominal ascites. Lymphadenopathy: Shotty retroperitoneal lymph nodes are similar to previous. No pathologically enlarged nodes are identified in the abdomen or pelvis. Pelvic viscera: The bladder is significantly distended, and the wall appears thickened with mild surrounding infiltration. There are tiny bladder diverticula. The uterus and adnexa are normal as visualized. Skeletal structures: The skeletal structures are osteopenic. There is mild lumbosacral spondylosis. No lytic or blastic lesions are seen. IMPRESSION: 1. The bladder is significantly distended and appears thick-walled with mild surrounding infiltration. Correlate with clinical findings and urinalysis. 2. Again seen is severe bilateral hydroureteronephrosis, which is similar to the10/16/2025 examination. The ureters are dilated to level of the distended bladder, and this may be related to bladder outlet obstruction. Follow up with urology is recommended. 3. Colonic diverticulosis without CT evidence of acute diverticulitis. 4. Cardiomegaly noting coronary artery atherosclerosis. 5. Additional findings as above. ACT 112: Negative or not required by law. Electronically signed by: Keith Bentley M.D. 10/21/2025 1:39 PM Discharge Plan Visit Data Chief Complaint: Vomiting Stated Complaint: VOMITING, FEVER ED Provider: Ashwin Obrien Discharge Problem: Intractable vomiting with nausea, Elevated troponin, Acute dehydration, Abdominal pain, bilateral lower quadrant Patient Disposition: Admitted As Inpatient Condition: Fair Forms Stand Alone Forms: [facility] Prescriptions Prescriptions: No Action estradiol [Estrace] 0.01 % (0.1 mg/gram) cream 0.5 g vaginal DAILY Qty: 42.5 2RF Rx Instructions: for 14 days Mounjaro 2.5 mg/0.5 mL pen injector 2.5 mg SUBCUT WK Rx Instructions: THURSDAYS aspirin 81 mg Tablet 81 mg PO DAILY atorvastatin 40 mg Tablet 40 mg PO DAILY metoprolol succinate 50 mg Tablet Extended Release 24 Hr 50 mg PO DAILY acetaminophen [Tylenol Extra Strength] 500 mg Tablet 1,000 mg PO Q8H PRN (Reason: pain) Qty: 30 0RF Rx Instructions: Olbi-fow-lnnlyre diclofenac sodium [Voltaren Arthritis Pain] 1 % Gel 2 g EXT QID PRN (Reason: Pain in the sternum) Qty: 100 0RF Rx Instructions: Please give tube from the hospital pantoprazole 40 mg Tablet,Delayed Release (Dr/Ec) 40 mg PO QAM Qty: 30 0RF ondansetron 4 mg tablet,disintegrating 4 mg PO Q8H PRN (Reason: nausea and vomiting) Qty: 20 0RF ciprofloxacin HCl [Cipro] 500 mg tablet 500 mg PO BID Qty: 10 0RF Alive Women's 50 Plus Ultra MV 240-150 mcg Tablet 1 tab PO DAILY insulin glargine [Lantus Solostar U-100 Insulin] 100 unit/mL (3 mL) Insulin Pen 4 unit SUBCUT BID Qty: 0 0RF Referrals Referrals: Rosie Lowe DO [Primary Care Provider] -
[2025-10-21] MEDS: ONDANSETRON INJ 2 MG/ML 2 ML VIAL IV STA (11:22)
[2025-10-21] MEDS: SODIUM CHLORIDE 0.9% 1,000 ML IV ONE (11:22)
--- NOTE | 2025-10-21 11:46 | XRay Report ---
XR chest 1V portable CLINICAL HISTORY: Sepsis COMPARISON STUDY: 10/16/2025 FINDINGS: Stable CABG. Stable mild cardiomegaly without pulmonary vascular congestion. No consolidati on or pleural effusion seen. No pneumothorax. IMPRESSION: No acute findings. ACT 112: Negative or not required by law. Electronically signed by: Demetrius Aguilar M.D. 10/21/2025 11:44 AM
[2025-10-21] MEDS: ACETAMINOPHEN 1,000 MG/100 ML VIAL IV STA (12:10)
[2025-10-21 12:14] LABS: Influenza A virus by PCR Negative (Neg); Influenza B virus by PCR Negative (Neg); SARS CoV2 RNA(COVID-19) Ceph NEGATIVE (Negative)
[2025-10-21 12:22] LABS: Hematocrit (blood only) 37.0 % (37.0-47.0); Hemoglobin 12.3 g/dL (12.0-16.0); Mean Corpuscular Hemoglobin 27.5 pg (25.0-34.0); Mean Corpuscular Volume 82.8 fL (80.0-100.0); Platelet Count 453 K/uL (130-400); RDW Standard Deviation 41.5 fL (36.4-46.3); Red Blood Count 4.47 M/uL (4.20-5.40); White Blood Count 8.98 K/ul (4.8-10.8)
[2025-10-21 12:40] LABS: Alanine Aminotransferase 19.0 U/L (7-52); Albumin Level 3.5 gm/dl (3.4-5.0); Alkaline Phosphatase 86.0 U/L (34-104); Anion Gap 11.0 (3-11); Bilirubin,Total 0.5 mg/dl (0.2-1.0); Blood Urea Nitrogen 29.0 mg/dl (6-23); Calcium 9.5 mg/dl (8.6-10.3); Carbon Dioxide 20.0 mmol/L (21-32); Chloride 107.0 mmol/L (98-107); Creatinine Clr Calc Pharmacy 32.0 ml/min; Glucose 172.0 mg/dl (70-99(Fasting)); Magnesium 1.8 mg/dl (1.7-2.4); Potassium 3.7 mmol/L (3.5-5.1); Sodium 138.0 mmol/L (136-145); Total Protein 8.0 gm/dl (6.0-8.3)
[2025-10-21 13:32] LABS: Immature Granulocytes # (auto) 0.04 K/uL (0.01-0.20); Immature Granulocytes % (auto) 0.4 %
--- NOTE | 2025-10-21 13:42 | CT Scan Report ---
CT SCAN OF THE ABDOMEN AND PELVIS WITHOUT IV CONTRAST CLINICAL HISTORY: Lower abdominal pain. COMPARISON STUDY: Abdominal CT dated 10/16/2025. TECHNIQUE: CT scan of the abdomen and pelvis is performed from the lung bases to the proximal femora. Images are reviewed in the axial, sagittal, and coronal planes. IV contrast was not administered for this examination. Limited examination due to suboptimal oral and IV contrast. A dose lowering techni que was utilized adhering to the principles of ALARA. CT DOSE: 634.97 mGy.cm FINDINGS: Lung bases: The heart is enlarged noting trace pericardial effusion. The coronary arteries are densel y calcified. There is a tiny hiatal hernia. The lung bases are clear noting bibasilar scarring/atelec tasis. Liver: The unenhanced liver is normal in size, contour, and attenuation. There is no intrahepatic vicki iary ductal dilatation. Gallbladder: Surgically absent noting clips in the gallbladder fossa. Spleen: Normal in size and attenuation. Pancreas: The unenhanced pancreas is grossly unremarkable. Adrenal glands: Unremarkable. Kidneys: The unenhanced kidneys are normal in size. There is severe bilateral hydroureteronephrosis. The ureters are dilated to level of the distended bladder. No obstructing stone or lesion is clearly seen. A punctate nonobstructing stone is seen in the left upper pole. No right renal calculi are iden tified and no ureteral stone is seen. There is no evidence of contour deforming renal mass lesion. Abdominal vasculature: The abdominal aorta is normal in course and caliber noting advanced atheroscle rotic calcification. Bowel: There is moderate colonic diverticulosis without CT evidence of acute diverticulitis. No bowel obstruction is seen. Mild to moderate fecal tension is noted throughout the colon. The appendix is well-visualized and normal. Peritoneum: There is no intraperitoneal free air or abdominal ascites. Lymphadenopathy: Shotty retroperitoneal lymph nodes are similar to previous. No pathologically enlarg ed nodes are identified in the abdomen or pelvis. Pelvic viscera: The bladder is significantly distended, and the wall appears thickened with mild surr ounding infiltration. There are tiny bladder diverticula. The uterus and adnexa are normal as visuali zed. Skeletal structures: The skeletal structures are osteopenic. There is mild lumbosacral spondylosis. N o lytic or blastic lesions are seen. IMPRESSION: 1. The bladder is significantly distended and appears thick-walled with mild surrounding infiltration . Correlate with clinical findings and urinalysis. 2. Again seen is severe bilateral hydroureteronephrosis, which is similar to the10/16/2025 examinati on. The ureters are dilated to level of the distended bladder, and this may be related to bladder out let obstruction. Follow up with urology is recommended. 3. Colonic diverticulosis without CT evidence of acute diverticulitis. 4. Cardiomegaly noting coronary artery atherosclerosis. 5. Additional findings as above. ACT 112: Negative or not required by law. Electronically signed by: Keith Bentley M.D. 10/21/2025 1:39 PM
--- NOTE | 2025-10-21 13:48 | Electrocardiogram Report ---
Test Reason : Blood Pressure : */* mmHG Vent. Rate : 89 BPM Atrial Rate : 89 BPM P-R Int : 132 ms QRS Dur : 94 ms QT Int : 394 ms P-R-T Axes : 57 38 99 degrees QTcB Int : 479 ms Normal sinus rhythm Minimal voltage criteria for LVH, may be normal variant possible Inferior infarct (cited on or before 05-Jul-2025) Abnormal ECG When compared with ECG of 16-Oct-2025 08:11, No significant change was found Confirmed by Jose L Salter ([id number]) on 10/21/2025 1:48:46 PM Referred By: Confirmed By: Jose L Salter
[2025-10-21] MEDS: PROMETHAZINE 12.5 MG/50.5 ML BAG IV STA (14:02)
[2025-10-21] MEDS ORDERED: PHARMACY GLYCEMIC MGMT CONSULT PRN (14:31)
[2025-10-21] MEDS: CEFEPIME 2000MG 2,000 MG/20 ML SYR IV STA (14:32)
[2025-10-21 14:33] LABS: Appearance Urine Cloudy (Clear); Bacteria Urine Automated 1+ (None Seen); Epithelial Cell Urine Auto 0-2 /hpf (0-2); Glucose Urine UA Negative (Negative); WBC Urine Automated >50 /hpf (0-5)
--- NOTE | 2025-10-21 14:38 | History & Physical Report ---
Date of Service October 21, 2025 Assessment & Plan (1) Abdominal pain, bilateral lower quadrant: Plan: -pt with recent admission for treatment of Enterobacter -was discharged on cipro -history of recurrent UTI, chronic moderate-severe bilateral hydroureteronephrosis, chronic VUR and chronic bladder outlet obstruction -similar presentation to previous admission -cefepmine started for treatment of likely persistent UTI -f/u urine C&S -zofran/Compazine -clear liquid diet -IVF (2) Elevated troponin: Plan: -h/o CAD -asa, statin -trend troponin -likely 2nd to demand ischemia (3) T2DM (type 2 diabetes mellitus): Plan: -pharm consult for glycemic management -lantus (4) Hypertension: Plan: -metoprolol Plan Heparin SQ for DVT px History of Present Illness Chief Complaint: nausea, vomiting Primary Care Provider: Rosie Lowe DO Pt is a 70-year-old female with a history of recurrent UTI, chronic moderate- severe bilateral hydroureteronephrosis, chronic VUR and chronic bladder outlet obstruction, CAD s/p CABG, CKD stage III, DM 2, recent treated for UTI and discharged 72hrs ago returns to ER today with diffuse body aches, abdominal pain radiating to her back and intractable nausea, vomiting. Pt does also complain of chest congestion and has been around a family member with URI symptoms. In the ER her labs did show troponin of 80, with the rest of labs showing no major change since last admission. Pt was discharged home previously on cipro to treat her UTI. She was started on cefepime in the ER and given Phenergan for her intractable nausea vomiting. Pt is being admitted for likely persistent complicated UTI. Allergies Allergy/AdvReac Type Severity Reaction Status Date / Time banana Allergy Severe Vomiting Unverified 07/27/25 09:01 Beef Containing Products Allergy Severe Vomiting Unverified 07/27/25 09:01 codeine Allergy Severe IV--WHOLE Verified 07/27/25 09:01 ARM SWELLED, SHORT OF BREATH morphine Allergy Severe IV--WHOLE Verified 07/27/25 09:01 ARM SWELLED, SHORT OF BREATH peanut Allergy Severe Hives Verified 09/12/25 17:15 Penicillins Allergy Intermediate Rash Verified 07/27/25 09:01 Sulfa (Sulfonamide Allergy Intermediate Rash Verified 07/27/25 09:01 Antibiotics) tetracycline Allergy Intermediate Rash Verified 07/27/25 09:01 Fish Containing Products AdvReac Nausea Verified 09/13/25 11:37 tree nut AdvReac Nausea Verified 09/13/25 14:30 Home Medications Medication Instructions Recorded Confirmed Type tirzepatide 2.5 mg/0.5 mL 2.5 mg subcut WK 07/04/25 10/21/25 History subcutaneous pen injector (Mounjaro) bzvxgbeu-vwhgjexb-jiqgh acid 240 1 tab PO DAILY 07/14/25 10/21/25 History mcg-vit K1 150 mcg-herb 357 tablet (Alive Women's 50 Plus Ultra Multivitamin) insulin glargine 100 unit/mL (3 4 unit (0.04 mL) subcut BID #0 mL 07/15/25 10/21/25 Rx mL) subcutaneous pen (Lantus Solostar U-100 Insulin) estradiol 0.01% (0.1 mg/gram) 0.5 g vaginal DAILY #42.5 grams 07/27/25 10/21/25 Rx vaginal cream (Estrace) aspirin 81 mg tablet 81 mg PO DAILY 09/12/25 10/21/25 History atorvastatin 40 mg tablet 40 mg PO DAILY 09/12/25 10/21/25 History metoprolol succinate 50 mg 50 mg PO DAILY 09/12/25 10/21/25 History tablet,extended release 24 hr acetaminophen 500 mg tablet 1,000 mg (2 x 500 mg) PO Q8H PRN 09/16/25 10/21/25 Rx (Tylenol Extra Strength) pain #30 tabs diclofenac sodium 1 % topical gel 2 g EXT QID PRN Pain in the 09/16/25 10/21/25 Rx (Voltaren Arthritis Pain) sternum #100 grams ondansetron 4 mg disintegrating 4 mg PO Q8H PRN nausea and 09/16/25 10/21/25 Rx tablet vomiting #20 tabs pantoprazole 40 mg tablet,delayed 40 mg PO QAM #30 tabs 09/16/25 10/21/25 Rx release ciprofloxacin HCl 500 mg tablet 500 mg PO BID #10 tabs 10/18/25 10/21/25 Rx (Cipro) Past Med/Surg History Problem List (Updated 10/21/25 @ 14:44 by Ashwin Obrien MD) Abdominal pain, bilateral lower quadrant (Acute) Acute dehydration (Acute) Elevated troponin (Acute) Intractable vomiting with nausea (Acute) Acute UTI (Acute) Acute dehydration (Acute) Leukocytosis (Acute) Vomiting and diarrhea (Acute) Complicated UTI (urinary tract infection) Bladder outlet obstruction Nausea Hydroureteronephrosis (Acute) Anemia Ureteral reflux (Acute) Elevated troponin (Acute) Elevated lactic acid level (Acute) Leukocytosis (Acute) Acute urinary retention (Acute) Urinary incontinence CAD (coronary artery disease) Recurrent urinary tract infection (Acute) Hypertension Medical History T2DM (type 2 diabetes mellitus) Bilateral hydronephrosis History of DVT (deep vein thrombosis) Surgical History History of coronary artery bypass graft H/O heart surgery triple bypass CABG S/P urethral surgery Hx of cholecystectomy 1991 Hx of tonsillectomy 1959 Family History Father Diabetes Heart disease Hypertension Sister Diabetes Brother Diabetes Denies family history of Ovarian cancer Prostate cancer Lung cancer Colorectal cancer Stroke Social History Smoking Status: Never smoker Second Hand Exposure: No; Do You Dip or Chew Tobacco: No; Hx Alcohol Use: No Hx Substance Use: No Preferred Language: Greenlandic Communication Ability: Effective Visual Impairment: No Limitations Hearing Ability: Normal Mail List Processor Required: No Beliefs That Will Affect Care: None marital status: Current Living Situation: Spouse Current Living Situation Comment: current occupational status: retired How many Children do You have: 4 Feels Safe at Home: Yes Childhood Exposure to Second-Hand Smoke: No Diet: other Diet Comment: no carb diet caffeine: Yes during the past year weight has: decreased > 10 lbs Dental Care, Regularly: Yes Physical Activity Frequency: Daily Seatbelt Use: always Sunscreen Use: Yes Assistive Devices: Cane Review of Systems Review of Systems: CONST: Negative for fever, +body aches and chills. HENT: Negative for neck pain/stiffness, headache, congestion, sore throat, swelling. EYES: Negative for discharge/pain or vision changes. RESP: Negative for cough/hemoptysis and shortness of breath. CV: Negative chest pain, difficulty breathing, palpitations. ABD: + pain, nausea, vomiting. : Negative increase frequency, dysuria, blood in urine or stool. MUSC: Negative for muscle aches, edema. SKIN: Negative rash, lesions/sores. NEURO: Negative headache, dizziness, weakness. Physical Exam Physical Exam: GENERAL APPEARANCE NAD, activity normal for age, well developed/ well nourished, no cyanosis, pallor, or diaphoresis. EYES lids/conjunctiva normal. EARS/NOSE/THROAT Mucous membranes moist, nares normal, lips/teeth normal uvula midline without oral pharyngeal erythema, exudate or swelling TMs normal bilaterally. No lymphangitis/lymphedema. HEAD/NECK normocephalic atraumatic, no facial trauma, neck is supple. RESPIRATORY respiratory effort normal, speaks in full sentences, no tripod position, no accessory muscle use. Lungs clear to auscultation without rhonchi, wheezes, rales CARDIAC Regular rate and rhythm, no edema. ABDOMINAL Soft, ND/NT. No evidence of fluid wave. No pulsatile masses on exam, rebound tenderness, Brown sign or pain over Mcburney's point. MUSCLES/EXTREMITIES No abnormal range of motion, no swelling. SKIN Warm, pink and dry. No rashes, dermatoses, petechiae or lesions. NEUROLOGICAL Speech is clear and appropriate. Normal level of consciousness. Gait and coordination are normal. 5/5 strength in all extremities. PSYCH Normal mood and affect. Judgement/competence is appropriate Results & Data Results & Data Vital Signs (Past 12 Hours) Vital Signs Temp Pulse Resp BP Pulse Ox O2 Del Method O2 Flow Rate 10/21/25 14:01 78 21 199/106 H 100 Room Air 10/21/25 13:30 72 17 184/92 H 100 Nasal Cannula 1 10/21/25 13:00 73 19 195/94 H 100 Nasal Cannula 1 10/21/25 12:48 76 19 195/97 H 100 Room Air 10/21/25 12:19 82 14 100 Room Air 10/21/25 11:41 83 10/21/25 11:30 84 21 210/103 H 100 Room Air 10/21/25 10:20 36.6 C 95 H 20 156/104 H 100 Room Air PG Care Time/CCT Total # of Minutes Spent Total Time Spent with Patient: Total time spent is greater than 50% in coordination of care (as documented) at patient's floor/unit and/or counseling patient: Coding Level of Care Code 58508 INT INP/OBS CARE MIN Diagnoses Abdominal pain, bilateral lower quadrant R10.31; R10.32 Elevated troponin R79.89 Type 2 diabetes mellitus without complication, with long-term current use of insulin E11.9; Z79.4 Diabetes mellitus complication status: without complication Diabetes mellitus mcc insulin use: with ocean transportation intermediary use Hypertension I10 (3) T2DM (type 2 diabetes mellitus) Diabetes mellitus complication status: without complication Diabetes mellitus ocean transportation intermediary insulin use: with ocean transportation intermediary use Qualified Code(s): E11.9 - Type 2 diabetes mellitus without complications; Z79.4 - half-way (current) use of insulin
[2025-10-21] MEDS ORDERED: CARBOHYDRATES FOR HYPOGLYCEMIA PO PRN (14:45)
[2025-10-21] MEDS ORDERED: GLUCOSE 40% GEL 15 GM TUBE PO PRN (14:45)
[2025-10-21] MEDS ORDERED: DEXTROSE 50% 50 ML SYRINGE IV PRN (14:45)
[2025-10-21] MEDS ORDERED: GLUCOSE 10 TAB/TUBE PO PRN (14:45)
[2025-10-21] MEDS ORDERED: GLUCAGON FOR INJ 1 MG VIAL SQ PRN (14:45)
[2025-10-21] MEDS: ONDANSETRON INJ 2 MG/ML 2 ML VIAL IV PRN (16:23)
[2025-10-21] MEDS: INSULIN ASPART PER UNIT CHARGE SC SCH (17:57)
[2025-10-21] MEDS: LANTUS PER UNIT CHARGE SC SCH (20:37)
[2025-10-21] MEDS ORDERED: NON-FORMULARY MEDICATION (Insulin Glargine [Lantus Solostar U-100 Insulin] 100 unit/mL (3 SQ SCH (21:00)
[2025-10-21] MEDS: HEPARIN SOD 5,000 UNIT/0.5 ML VIAL SQ SCH (21:11)
[2025-10-21] MEDS: CEFEPIME 2000MG 2,000 MG/20 ML SYR IV SCH (21:51)
[2025-10-22] MEDS: PROCHLORPERAZINE MALEATE 10 MG TAB PO PRN (05:32)
[2025-10-22 06:31] LABS: Hematocrit (blood only) 36.1 % (37.0-47.0); Hemoglobin 11.6 g/dL (12.0-16.0); Mean Corpuscular Hemoglobin 27.6 pg (25.0-34.0); Mean Corpuscular Volume 86.0 fL (80.0-100.0); Platelet Count 415 K/uL (130-400); RDW Standard Deviation 44.0 fL (36.4-46.3); Red Blood Count 4.20 M/uL (4.20-5.40); White Blood Count 8.04 K/ul (4.8-10.8)
[2025-10-22 06:48] LABS: Anion Gap 4.0 (3-11); Blood Urea Nitrogen 26.0 mg/dl (6-23); Calcium 8.8 mg/dl (8.6-10.3); Carbon Dioxide 22.0 mmol/L (21-32); Chloride 110.0 mmol/L (98-107); Creatinine Clr Calc Pharmacy 31.1 ml/min; Glucose 135.0 mg/dl (70-99(Fasting)); Potassium 3.9 mmol/L (3.5-5.1); Sodium 136.0 mmol/L (136-145)
[2025-10-22 06:55] LABS: Immature Granulocytes # (auto) 0.04 K/uL (0.01-0.20); Immature Granulocytes % (auto) 0.5 %
[2025-10-22] MEDS: ASPIRIN 81 MG ECTAB PO SCH (07:57)
[2025-10-22] MEDS: METOPROLOL SUCC 50MG EXT REL TAB PO SCH (07:58)
[2025-10-22] MEDS: ATORVASTATIN 40 MG TAB PO SCH (07:58)
[2025-10-22] MEDS: ACETAMINOPHEN 500 MG TAB PO PRN (07:59)
--- NOTE | 2025-10-22 10:19 | Hospitalist Progress Note ---
Date of Service October 22, 2025 Assessment & Plan (1) Abdominal pain, bilateral lower quadrant: Plan: -pt with recent admission for treatment of Enterobacter -was discharged on cipro -history of recurrent UTI, chronic moderate-severe bilateral hydroureteronephrosis, chronic VUR and chronic bladder outlet obstruction -similar presentation to previous admission -cefepmine started for treatment of likely persistent UTI -f/u urine C&S -zofran/Compazine -clear liquid diet -ID consulted (2) Elevated troponin: Plan: -h/o CAD -asa, statin -trend troponin -likely 2nd to demand ischemia (3) T2DM (type 2 diabetes mellitus): Plan: -pharm consult for glycemic management -lantus (4) Hypertension: Plan: -metoprolol Plan Heparin SQ for DVT px Admission and Anticipated Discharge Date Admission Date: October 21, 2025 Subjective No events overnight. Pt feeling better this am. Less nausea. Review of Systems Review of Systems: CONST: Negative for fever, +body aches and chills. HENT: Negative for neck pain/stiffness, headache, congestion, sore throat, swelling. EYES: Negative for discharge/pain or vision changes. RESP: Negative for cough/hemoptysis and shortness of breath. CV: Negative chest pain, difficulty breathing, palpitations. ABD: + pain, nausea, vomiting. : Negative increase frequency, dysuria, blood in urine or stool. MUSC: Negative for muscle aches, edema. SKIN: Negative rash, lesions/sores. NEURO: Negative headache, dizziness, weakness. Physical Exam Physical Exam: GENERAL APPEARANCE NAD, activity normal for age, well developed/ well nourished, no cyanosis, pallor, or diaphoresis. EYES lids/conjunctiva normal. EARS/NOSE/THROAT Mucous membranes moist, nares normal, lips/teeth normal uvula midline without oral pharyngeal erythema, exudate or swelling TMs normal bilaterally. No lymphangitis/lymphedema. HEAD/NECK normocephalic atraumatic, no facial trauma, neck is supple. RESPIRATORY respiratory effort normal, speaks in full sentences, no tripod position, no accessory muscle use. Lungs clear to auscultation without rhonchi, wheezes, rales CARDIAC Regular rate and rhythm, no edema. ABDOMINAL Soft, ND/NT. No evidence of fluid wave. No pulsatile masses on exam, rebound tenderness, Brown sign or pain over Mcburney's point. MUSCLES/EXTREMITIES No abnormal range of motion, no swelling. SKIN Warm, pink and dry. No rashes, dermatoses, petechiae or lesions. NEUROLOGICAL Speech is clear and appropriate. Normal level of consciousness. Gait and coordination are normal. 5/5 strength in all extremities. PSYCH Normal mood and affect. Judgement/competence is appropriate Results & Data Results & Data Vital Signs (Past 12 Hours) Vital Signs Temp Pulse Pulse Resp BP Pulse Ox O2 Del Method 10/22/25 08:01 36.3 C L 81 18 165/90 H 96 Room Air 10/22/25 06:57 76 10/22/25 03:07 36.8 C 75 16 121/72 97 Room Air PG Care Time/CCT Total # of Minutes Spent Total Time Spent with Patient: Total time spent is greater than 50% in coordination of care (as documented) at patient's floor/unit and/or counseling patient: Coding Level of Care Code 68386 SUB INP/OBS CARE 2/35MIN Diagnoses Abdominal pain, bilateral lower quadrant R10.31; R10.32 Elevated troponin R79.89 Type 2 diabetes mellitus without complication, with long-term current use of insulin E11.9; Z79.4 Diabetes mellitus custodial insulin use: with vermin exterminator use Diabetes mellitus complication status: without complication Hypertension I10 (3) T2DM (type 2 diabetes mellitus) Diabetes mellitus custodial insulin use: with vermin exterminator use Diabetes mellitus complication status: without complication Qualified Code(s): E11.9 - Type 2 diabetes mellitus without complications; Z79.4 - intermediate card tender (current) use of insulin
--- NOTE | 2025-10-22 11:23 | Cardiology Consultation ---
Date of Consultation October 22, 2025 Assessment & Plan (1) Abdominal pain, bilateral lower quadrant: -pt with recent admission for treatment of Enterobacter -was discharged on cipro -history of recurrent UTI, chronic moderate-severe bilateral hydroureteronephrosis, chronic VUR and chronic bladder outlet obstruction -similar presentation to previous admission -cefepmine started for treatment of likely persistent UTI -f/u urine C&S -zofran/Compazine -clear liquid diet -ID consulted (2) Elevated troponin: -h/o CAD -asa, statin -trend troponin -likely 2nd to demand ischemia recent CABG in March 2024--would cont medical therapy (3) T2DM (type 2 diabetes mellitus): -pharm consult for glycemic management -lantus (4) Hypertension: -metoprolol (5) History of DVT (deep vein thrombosis): would clarify if this is new or old or recurrent. She is not on NOAC here. Plan Heparin SQ for DVT px History of Present Illness Attending Physician: Reinaldo Saldana MD History of Present Illness This patient is a 70-year-old female with a history of recurrent UTI, chronic moderate-severe bilateral hydroureteronephrosis, chronic VUR and chronic bladder outlet obstruction, CAD s/p CABG x 3 in at [facility] CKD stage III, DM 2, and DVT, who presents with nausea/vomiting, lower abdominal pain that radiated through to her lower back, and generally feeling poorly since the night before. She believes that she had low-grade fevers at home. Denies dysuria or hematuria. She reports she vomited multiple times, nonbloody emesis. In the ED, she had a CT A/P which showed stable moderate-severe hydroureteronephrosis, distended bladder which was thick walled with pericystic infiltration, and her UA was abnormal consistent with UTI. She appears to be a very poor historian and could not tell me the name of her prior fish agent or her heart surgeon. She had her CABG in [place] a "few years ago." She did tell me that she is seeing heart doctors here at [facility]. I was able to call my former partner Dr. Hernesto Grubbs (who was client service consultant for [facility] and for the [facility] system) and found that she underwent CABG x 3 in March 2024 with CAICEDO to LAD, SVG to OM and SVG to PL branch after suffering a NSTEMI. She had LV dysfunction at the time with EF 35%. She was to have cardiac follow up with their group, but has not had follow up. He reports the last ECG showed NSR, 1mm ST depression in 1 AVL. She was DC on ASA Eliquis (apparently for recurrent DVT/PE) atorvastatin and Entresto. Allergies Allergy/AdvReac Type Severity Reaction Status Date / Time banana Allergy Severe Vomiting Unverified 07/27/25 09:01 Beef Containing Products Allergy Severe Vomiting Unverified 07/27/25 09:01 codeine Allergy Severe IV--WHOLE Verified 07/27/25 09:01 ARM SWELLED, SHORT OF BREATH morphine Allergy Severe IV--WHOLE Verified 07/27/25 09:01 ARM SWELLED, SHORT OF BREATH peanut Allergy Severe Hives Verified 09/12/25 17:15 Penicillins Allergy Intermediate Rash Verified 07/27/25 09:01 Sulfa (Sulfonamide Allergy Intermediate Rash Verified 07/27/25 09:01 Antibiotics) tetracycline Allergy Intermediate Rash Verified 07/27/25 09:01 Fish Containing Products AdvReac Nausea Verified 09/13/25 11:37 tree nut AdvReac Nausea Verified 09/13/25 14:30 Home Medications Medication Instructions Recorded Confirmed Type tirzepatide 2.5 mg/0.5 mL 2.5 mg subcut WK 07/04/25 10/21/25 History subcutaneous pen injector (Moisesunjoe) zkkxwalk-gyajfrqx-peldn acid 240 1 tab PO DAILY 07/14/25 10/21/25 History mcg-vit K1 150 mcg-herb 357 tablet (Alive Women's 50 Plus Ultra Multivitamin) insulin glargine 100 unit/mL (3 4 unit (0.04 mL) subcut BID #0 mL 07/15/25 10/21/25 Rx mL) subcutaneous pen (Lantus Solostar U-100 Insulin) estradiol 0.01% (0.1 mg/gram) 0.5 g vaginal DAILY #42.5 grams 07/27/25 10/21/25 Rx vaginal cream (Estrace) aspirin 81 mg tablet 81 mg PO DAILY 09/12/25 10/21/25 History atorvastatin 40 mg tablet 40 mg PO DAILY 09/12/25 10/21/25 History metoprolol succinate 50 mg 50 mg PO DAILY 09/12/25 10/21/25 History tablet,extended release 24 hr acetaminophen 500 mg tablet 1,000 mg (2 x 500 mg) PO Q8H PRN 09/16/25 10/21/25 Rx (Tylenol Extra Strength) pain #30 tabs diclofenac sodium 1 % topical gel 2 g EXT QID PRN Pain in the 09/16/25 10/21/25 Rx (Voltaren Arthritis Pain) sternum #100 grams ondansetron 4 mg disintegrating 4 mg PO Q8H PRN nausea and 09/16/25 10/21/25 Rx tablet vomiting #20 tabs pantoprazole 40 mg tablet,delayed 40 mg PO QAM #30 tabs 09/16/25 10/21/25 Rx release ciprofloxacin HCl 500 mg tablet 500 mg PO BID #10 tabs 10/18/25 10/21/25 Rx (Cipro) Patient History Medical History T2DM (type 2 diabetes mellitus) Bilateral hydronephrosis History of DVT (deep vein thrombosis) Surgical History History of coronary artery bypass graft H/O heart surgery triple bypass CABG S/P urethral surgery Hx of cholecystectomy 1991 Hx of tonsillectomy 1959 Family History Father Diabetes Heart disease Hypertension Sister Diabetes Brother Diabetes Denies family history of Ovarian cancer Prostate cancer Lung cancer Colorectal cancer Stroke Social History Smoking Status: Never smoker Second Hand Exposure: No; Do You Dip or Chew Tobacco: No; Hx Alcohol Use: No Hx Substance Use: No Preferred Language: Panamanian Communication Ability: Effective Visual Impairment: No Limitations Hearing Ability: Normal Bone Puller Required: No Beliefs That Will Affect Care: None marital status: Current Living Situation: Spouse Current Living Situation Comment: current occupational status: retired How many Children do You have: 4 Feels Safe at Home: Yes Childhood Exposure to Second-Hand Smoke: No Diet: other Diet Comment: no carb diet caffeine: Yes during the past year weight has: decreased > 10 lbs Dental Care, Regularly: Yes Physical Activity Frequency: Daily Seatbelt Use: always Sunscreen Use: Yes Assistive Devices: None Review of Systems Review of Systems: All systems reviewed & are unremarkable except as noted in HPI & below Physical Exam Physical Exam: AAO x 3 Respiratory: normal respiratory effort, lungs clear to auscultation Cardiovascular: RRR, no murmur, no edema Results & Data Vital Signs (Past 12 Hours) Vital Signs Temp Pulse Pulse Resp BP Pulse Ox O2 Del Method 10/22/25 11:14 36.4 C L 62 18 134/78 98 Room Air 10/22/25 08:30 Room Air 10/22/25 08:01 36.3 C L 81 18 165/90 H 96 Room Air 10/22/25 06:57 76 10/22/25 03:07 36.8 C 75 16 121/72 97 Room Air Laboratory Results Abnormal lab results 10/21/25 10/21/25 10/21/25 Range/Units 11:53 14:05 14:12 Hgb (12.0-16.0) g/dL Hct (37.0-47.0) % Plt Count 453 H (130-400) K/uL Dickson # (Auto) (0.11-0.59) K/uL Chloride (98-107) mmol/L Carbon Dioxide 20 L (21-32) mmol/L BUN 29 H (6-23) mg/dl Creatinine 1.46 H (0.6-1.2) mg/dl Glucose 172 H (70-99(Fasting)) mg/dl POC Glucose (70-99) mg/dl Troponin I High Sens 85.9 H* 84.3 H* (0-14) pg/ml Urine Appearance Cloudy A (Clear) Urine Protein 2+ H (Negative) Urine Blood 1+ H (Negative) Ur Leukocyte Esterase 3+ H (Negative) Urine WBC (Auto) >50 H (0-5) /hpf Urine RBC (Auto) 3-5 H (0-2) /hpf U Hyaline Cast (Auto) 3-5 H (0-2) /lpf Urine Bacteria (Auto) 1+ H (None Seen) Urine Yeast Present A (None Prsent) 10/21/25 10/21/25 10/21/25 Range/Units 15:57 16:58 20:26 Hgb (12.0-16.0) g/dL Hct (37.0-47.0) % Plt Count (130-400) K/uL Dickson # (Auto) (0.11-0.59) K/uL Chloride (98-107) mmol/L Carbon Dioxide (21-32) mmol/L BUN (6-23) mg/dl Creatinine (0.6-1.2) mg/dl Glucose (70-99(Fasting)) mg/dl POC Glucose 117 H 157 H (70-99) mg/dl Troponin I High Sens 72.6 H* D (0-14) pg/ml Urine Appearance (Clear) Urine Protein (Negative) Urine Blood (Negative) Ur Leukocyte Esterase (Negative) Urine WBC (Auto) (0-5) /hpf Urine RBC (Auto) (0-2) /hpf U Hyaline Cast (Auto) (0-2) /lpf Urine Bacteria (Auto) (None Seen) Urine Yeast (None Prsent) 10/21/25 10/22/25 10/22/25 Range/Units 22:56 05:58 07:39 Hgb 11.6 L (12.0-16.0) g/dL Hct 36.1 L (37.0-47.0) % Plt Count 415 H (130-400) K/uL Dickson # (Auto) 0.70 H (0.11-0.59) K/uL Chloride 110 H (98-107) mmol/L Carbon Dioxide (21-32) mmol/L BUN 26 H (6-23) mg/dl Creatinine 1.50 H (0.6-1.2) mg/dl Glucose 135 H (70-99(Fasting)) mg/dl POC Glucose 126 H (70-99) mg/dl Troponin I High Sens 93.7 H* D 64.5 H* D (0-14) pg/ml Urine Appearance (Clear) Urine Protein (Negative) Urine Blood (Negative) Ur Leukocyte Esterase (Negative) Urine WBC (Auto) (0-5) /hpf Urine RBC (Auto) (0-2) /hpf U Hyaline Cast (Auto) (0-2) /lpf Urine Bacteria (Auto) (None Seen) Urine Yeast (None Prsent) (3) T2DM (type 2 diabetes mellitus) Diabetes mellitus complication status: without complication Diabetes mellitus rodent exterminator insulin use: with rodent exterminator use Qualified Code(s): E11.9 - Type 2 diabetes mellitus without complications; Z79.4 - assistant terminal manager (current) use of insulin
[2025-10-22] MEDS: ADVANCED PROBIOTIC 625 MG CAPSULE PO SCH (13:02)
--- NOTE | 2025-10-22 13:12 | Pharmacy Report ---
Pharmacy Glycemic Short Note 2 - Date of Service October 22, 2025 - Glycemic Short BSG Results (Last 24 hours): 10/21/25 10/21/25 10/22/25 16:58 20:26 05:58 Glucose 135 H POC Glucose 117 H 157 H 10/22/25 10/22/25 07:39 11:46 Glucose POC Glucose 126 H 128 H OUTPATIENT ANTIDIABETIC REGIMEN: * Lantus 4 units SC BID * Mounjaro 2.5 mg SC weekly HbA1c: 6.3% (09/13/25) ASSESSMENT: * CO is a 70 year old female who presents with bilateral lower quadrant abdominal pain and nausea/vomiting * Patient with well-controlled T2DM as an outpatient on low-dose basal insulin and GLP-1 agonist * Blood sugars reasonably well-controlled so far this admission * Advancing diet from clears to T2DM today at lunch PLAN FOR INPATIENT GLYCEMIC CONTROL: * Basal insulin * Lantus 0-4 units SC HS * Bolus insulin * NovoLog per scale ACHS or Q6hrs while NPO * Goal Range: Low 120 mg/dL - High 160 mg/dL * Correction Factor: 35 mg/dL/unit * Nutritional / Prandial insulin per carb ratio of 1 unit per 12 grams CHO consumed
[2025-10-22] MEDS: ESTRACE VAG CREAM 0.01% 42.5 GM PV SCH (13:56)
[2025-10-22] MEDS: CEFEPIME 2000MG 2,000 MG/20 ML SYR IV SCH (17:47)
[2025-10-22] MEDS: FAMOTIDINE 40 MG TABLET PO ONE (20:50)
[2025-10-23 07:40] LABS: Anion Gap 7.0 (3-11); Blood Urea Nitrogen 22.0 mg/dl (6-23); Calcium 8.7 mg/dl (8.6-10.3); Carbon Dioxide 22.0 mmol/L (21-32); Chloride 107.0 mmol/L (98-107); Creatinine Clr Calc Pharmacy 31.6 ml/min; Glucose 191.0 mg/dl (70-99(Fasting)); Potassium 3.9 mmol/L (3.5-5.1); Sodium 136.0 mmol/L (136-145)
[2025-10-23] MEDS: LANTUS PER UNIT CHARGE SC SCH (09:12)
--- NOTE | 2025-10-23 10:19 | Hospitalist Progress Note ---
Date of Service October 23, 2025 Assessment & Plan (1) Abdominal pain, bilateral lower quadrant: Plan: -pt with recent admission for treatment of Enterobacter -was discharged on cipro -history of recurrent UTI, chronic moderate-severe bilateral hydrouret eronephrosis, chronic VUR and chronic bladder outlet obstruction -similar presentation to previous admission -cefepmine started for treatment of likely persistent UTI -f/u urine C&S -zofran/Compazine -clear liquid diet -ID consulted -urology consulted as patient with persistent UTIs and readmission (2) Elevated troponin: Plan: -h/o CAD -asa, statin -troponin trending downward -likely 2nd to demand ischemia (3) T2DM (type 2 diabetes mellitus): Plan: -pharm consult for glycemic management -lantus (4) Hypertension: Plan: -metoprolol Plan Heparin SQ for DVT px Admission and Anticipated Discharge Date Admission Date: October 21, 2025 Subjective No events overnight. Review of Systems Review of Systems: CONST: Negative for fever, +body aches and chills. HENT: Negative for neck pain/stiffness, headache, congestion, sore throat, swelling. EYES: Negative for discharge/pain or vision changes. RESP: Negative for cough/hemoptysis and shortness of breath. CV: Negative chest pain, difficulty breathing, palpitations. ABD: + pain, nausea, vomiting. : Negative increase frequency, dysuria, blood in urine or stool. MUSC: Negative for muscle aches, edema. SKIN: Negative rash, lesions/sores. NEURO: Negative headache, dizziness, weakness. Physical Exam Physical Exam: GENERAL APPEARANCE NAD, activity normal for age, well developed/ well nourished, no cyanosis, pallor, or diaphoresis. EYES lids/conjunctiva normal. EARS/NOSE/THROAT Mucous membranes moist, nares normal, lips/teeth normal uvula midline without oral pharyngeal erythema, exudate or swelling TMs normal bilaterally. No lymphangitis/lymphedema. HEAD/NECK normocephalic atraumatic, no facial trauma, neck is supple. RESPIRATORY respiratory effort normal, speaks in full sentences, no tripod position, no accessory muscle use. Lungs clear to auscultation without rhonchi, wheezes, rales CARDIAC Regular rate and rhythm, no edema. ABDOMINAL Soft, ND/NT. No evidence of fluid wave. No pulsatile masses on exam, rebound tenderness, Brown sign or pain over Mcburney's point. MUSCLES/EXTREMITIES No abnormal range of motion, no swelling. SKIN Warm, pink and dry. No rashes, dermatoses, petechiae or lesions. NEUROLOGICAL Speech is clear and appropriate. Normal level of consciousness. Gait and coordination are normal. 5/5 strength in all extremities. PSYCH Normal mood and affect. Judgement/competence is appropriate Results & Data Results & Data Vital Signs (Past 12 Hours) Vital Signs Temp Pulse Pulse Resp BP Pulse Ox O2 Del Method 10/23/25 07:40 36.9 C 68 20 145/78 H 98 Room Air 10/23/25 07:05 71 10/23/25 03:56 36.5 C 68 18 160/84 H 98 Room Air 10/23/25 00:38 36.5 C 66 18 146/82 H 97 Room Air PG Care Time/CCT Total # of Minutes Spent Total Time Spent with Patient: Total time spent is greater than 50% in coordination of care (as documented) at patient's floor/unit and/or counseling patient: Coding Level of Care Code 34441 SUB INP/OBS CARE 2/35MIN Diagnoses Abdominal pain, bilateral lower quadrant R10.31; R10.32 Elevated troponin R79.89 Type 2 diabetes mellitus without complication, with long-term current use of insulin E11.9; Z79.4 Diabetes mellitus long-term insulin use: with pan cleaner use Diabetes mellitus complication status: without complication Hypertension I10 (3) T2DM (type 2 diabetes mellitus) Diabetes mellitus long-term insulin use: with pan cleaner use Diabetes mellitus complication status: without complication Qualified Code(s): E11.9 - Type 2 diabetes mellitus without complications; 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
[2025-10-23] MEDS: LOPERAMIDE HCL 2 MG CAP PO PRN (11:59)
--- NOTE | 2025-10-23 14:05 | Urology Consultation ---
Date of Consultation October 23, 2025 Assessment & Plan (1) Abdominal pain, bilateral lower quadrant: (2) Acute dehydration: (3) Intractable vomiting with nausea: (4) Acute UTI: (5) Complicated UTI (urinary tract infection): (6) Bladder outlet obstruction: (7) Hydroureteronephrosis: (8) Acute urinary retention: (9) Recurrent urinary tract infection: (10) Urinary incontinence: (11) Ureteral reflux: (12) Bilateral hydronephrosis: (13) LISA (acute kidney injury): (14) Acute UTI (urinary tract infection): 70-year-old female with past medical history of bilateral hydroureteronephrosis, chronic retention/incomplete emptying, vesicoureteral reflux, and recurrent UTIs admitted for bilateral hydronephrosis, LISA and suspected UTI. Patient has now had multiple admissions. Has been assessed by Dr. Mckeon with [facility] urology additionally had referral to reconstruction specialist at [facility]. Per patient she was not pleased with their options. Had recommended continue conservative management without surgical intervention. Patient has now had numerous admissions and as well as numerous treatments for recurrent UTIs. Patient had imaging with this admission. Consistent with previous imaging. Concern for likely neurogenic bladder with incomplete emptying and chronic rete ntion leading to reflux. Difficult to determine exact etiology but does appear to be possibly obstructive versus functional/neurogenic. Had previously had catheterization for management and decompression of the system. Patient independently assessed, examined, interviewed, and evaluated. Patient's vitals and labs were all reviewed. Pertinent values in the HPI and plan section. Hemoglobin 11.6. Creatinine 1.48. White count 8.04. Vitals were all reviewed with stable findings. Blood pressure 154/79 pulse 63 respirations 20 temperature 36.8 and oxygen saturation at 98% on room air. Imaging was reviewed interpreted by myself. Patient has significant distention of the bladder signs of incomplete emptying and chronic retention. Has bilateral hydronephrosis likely from bladder outlet obstruction/chronic retention versus neurogenic bladder. Otherwise agree with read. Vitals were reviewed. Discussed findings extensively with patient and family. Reviewed with consulting physicians/team. Patient's complicated medical and surgical history was reviewed and summarized above. Patient's surgical, medical, social, and family history were all reviewed with pertinent values as above. Discussed patient's current diagnosis as well as concerns and issues. Reviewed different options moving forward. Discussed potential risks and benefits as well as possible options and concerns. Reviewed potential surgical options and interventions. Discussed potential issues and concerns related to intervention. Risk and benefits were discussed extensively with patient and any available family. Discussed potential risks related to anesthesia. Discussed risks of bleeding infection and injury. Did discuss possible options for intervention. All indications at this point are severe recurrent UTIs secondary to incomplete emptying with possible neurogenic bladder. Did discuss different options such as decompression of the system placement of indwelling catheter or intermittent catheterization for management of bladder volumes. Additionally discussed possible antibiotic management options including self start antibiotics versus prophylactic/suppression antibiotics for management of recurrent UTIs. Has met with reconstruction specialist at that time was told that they would not recommend moving forward with surgery for the reflux. Likely specialist felt the issues would likely not improve significantly as reflux likely secondary to the neurogenic/emptying issues. Patient has now had multiple and admissions. Additionally has numerous antibiotic sensitivities/allergies. Did develop LISA with chronic kidney disease. Continue supportive care and medical management per hospital medicine service. Agree with plans for broad-spectrum antibiotic coverage. Agree with plans for hydration. Will arrange outpatient follow-up with our office to discuss ongoing management. May need to consider possible antibiotic coverage possibly with suppression antibiotics. Will need to have ongoing broad-spectrum coverage until culture results are available. Plan to continue for full course of treatment with antibiotics depending on results. Patient's complicated medical and surgical history is reviewed and surmise above all imaging was reviewed interpreted by myself and all labs are reviewed pertinent positive negatives in the HPI or plan section. Will plan to coordinate with Dr. Mckeon's team. Likely plan for continued outpatient assessment and discussion of different options. History of Present Illness Attending Physician: Reinaldo Saldana MD History of Present Illness New consultation for patient with UTI/Pyelo, discomfort, and ill feelings. Patient has long history of recurrent UTIs. Has known history of significant issues with incomplete emptying bowel and bladder dysfunction and recurrent UTIs. Has reflux. Has family history with daughter who also has reflux. Patient presents frequently with UTI issues. Has been worked up by Dr. Mckeon Additionally had referral to [facility] for evaluation with the reconstruction is for management of the chronic bilateral hydronephrosis/hydroureter with reflux. Patient's newest episode included increasing lower urinary tract symptoms pain and concern for infection. Patient developed sudden onset of pain into flank going down and radiating into groin and back in waves comes and goes. Can be severe at times. Discussed and reviewed patient's family history for any history of issues, infections, and disease. Also, discussed patient's medical/surgery history especially related to any history of urinary issues or stone disease. Patient was admitted and is undergoing observation with broad spectrum IV antibiotics. Allergies Allergy/AdvReac Type Severity Reaction Status Date / Time banana Allergy Severe Vomiting Unverified 07/27/25 09:01 Beef Containing Products Allergy Severe Vomiting Unverified 07/27/25 09:01 codeine Allergy Severe IV--WHOLE Verified 07/27/25 09:01 ARM SWELLED, SHORT OF BREATH morphine Allergy Severe IV--WHOLE Verified 07/27/25 09:01 ARM SWELLED, SHORT OF BREATH peanut Allergy Severe Hives Verified 09/12/25 17:15 Penicillins Allergy Intermediate Rash Verified 07/27/25 09:01 Sulfa (Sulfonamide Allergy Intermediate Rash Verified 07/27/25 09:01 Antibiotics) tetracycline Allergy Intermediate Rash Verified 07/27/25 09:01 Fish Containing Products AdvReac Nausea Verified 09/13/25 11:37 tree nut AdvReac Nausea Verified 09/13/25 14:30 Home Medications Medication Instructions Recorded Confirmed Type tirzepatide 2.5 mg/0.5 mL 2.5 mg subcut WK 07/04/25 10/21/25 History subcutaneous pen injector (Mounjaro) vcqdtowf-cszhalkh-yfofh acid 240 1 tab PO DAILY 07/14/25 10/21/25 History mcg-vit K1 150 mcg-herb 357 tablet (Alive Women's 50 Plus Ultra Multivitamin) insulin glargine 100 unit/mL (3 4 unit (0.04 mL) subcut BID #0 mL 07/15/25 10/21/25 Rx mL) subcutaneous pen (Lantus Solostar U-100 Insulin) estradiol 0.01% (0.1 mg/gram) 0.5 g vaginal DAILY #42.5 grams 07/27/25 10/21/25 Rx vaginal cream (Estrace) aspirin 81 mg tablet 81 mg PO DAILY 09/12/25 10/21/25 History atorvastatin 40 mg tablet 40 mg PO DAILY 09/12/25 10/21/25 History metoprolol succinate 50 mg 50 mg PO DAILY 09/12/25 10/21/25 History tablet,extended release 24 hr acetaminophen 500 mg tablet 1,000 mg (2 x 500 mg) PO Q8H PRN 09/16/25 10/21/25 Rx (Tylenol Extra Strength) pain #30 tabs diclofenac sodium 1 % topical gel 2 g EXT QID PRN Pain in the 09/16/25 10/21/25 Rx (Voltaren Arthritis Pain) sternum #100 grams ondansetron 4 mg disintegrating 4 mg PO Q8H PRN nausea and 09/16/25 10/21/25 Rx tablet vomiting #20 tabs pantoprazole 40 mg tablet,delayed 40 mg PO QAM #30 tabs 09/16/25 10/21/25 Rx release ciprofloxacin HCl 500 mg tablet 500 mg PO BID #10 tabs 10/18/25 10/21/25 Rx (Cipro) Patient History Medical History T2DM (type 2 diabetes mellitus) Bilateral hydronephrosis History of DVT (deep vein thrombosis) Surgical History History of coronary artery bypass graft H/O heart surgery triple bypass CABG S/P urethral surgery Hx of cholecystectomy 1991 Hx of tonsillectomy 1959 Family History Father Diabetes Heart disease Hypertension Sister Diabetes Brother Diabetes Denies family history of Ovarian cancer Prostate cancer Lung cancer Colorectal cancer Stroke Social History Smoking Status: Never smoker Second Hand Exposure: No; Do You Dip or Chew Tobacco: No; Hx Alcohol Use: No Hx Substance Use: No Preferred Language: [place] Communication Ability: Effective Visual Impairment: No Limitations Hearing Ability: Normal Corrosion Technician Required: No Beliefs That Will Affect Care: None marital status: Current Living Situation: Spouse Current Living Situation Comment: current occupational status: retired How many Children do You have: 4 Feels Safe at Home: Yes Childhood Exposure to Second-Hand Smoke: No Diet: other Diet Comment: no carb diet caffeine: Yes during the past year weight has: decreased > 10 lbs Dental Care, Regularly: Yes Physical Activity Frequency: Daily Seatbelt Use: always Sunscreen Use: Yes Assistive Devices: None Review of Systems Review of Systems: All systems reviewed & are unremarkable except as noted in HPI & below Physical Exam Physical Exam: General: Alert and oriented x 3 in no acute distress. Advanced age HEENT: Normocephalic Atraumatic. Inspection normal. Cranial Nerves 2-12 Grossly intact. Nares are clear. Neck is supple. Normal inspection of face. Normal inspection of neck. Neurologic: No deficits on inspection. Baseline for motor function and sensory. Psychologic: Normal affect. Respiratory: Nonlabored. No use of accessory muscles. No tachypnea or dyspnea. Cardiovascular: No tachycardia Skin: [place] and Dry. No rashes or visible lesions. Extremities: Moving without issues. No motor deficits on inspection Lymphatics: No edema Abdomen: Soft Non-distended. No rebound or guarding. Results & Data Vital Signs (Past 12 Hours) Vital Signs Temp Pulse Pulse Resp BP Pulse Ox O2 Del Method 10/23/25 12:31 36.8 C 63 20 154/79 H 98 Room Air 10/23/25 10:58 Room Air 10/23/25 07:40 36.9 C 68 20 145/78 H 98 Room Air 10/23/25 07:05 71 10/23/25 03:56 36.5 C 68 18 160/84 H 98 Room Air PG Care Time/CCT Total # of Minutes Spent Total Time Spent with Patient: Total time spent is greater than 50% in coordination of care (as documented) at patient's floor/unit and/or counseling patient: Coding Level of Care Code 78001 INT INP/OBS CARE 3/75MIN Diagnoses Abdominal pain, bilateral lower quadrant R10.31; R10.32 Acute dehydration E86.0 Intractable vomiting with nausea R11.2 Acute UTI N39.0 Complicated UTI (urinary tract infection) N39.0 Bladder outlet obstruction N32.0 Hydroureteronephrosis N13.30 Acute urinary retention R33.8 Recurrent urinary tract infection N39.0 Urinary incontinence R32 Ureteral reflux N13.70 Bilateral hydronephrosis N13.30 LISA (acute kidney injury) N17.9
[2025-10-24 08:41] LABS: Anion Gap 6.0 (3-11); Blood Urea Nitrogen 30.0 mg/dl (6-23); Calcium 8.4 mg/dl (8.6-10.3); Carbon Dioxide 20.0 mmol/L (21-32); Chloride 108.0 mmol/L (98-107); Creatinine Clr Calc Pharmacy 30.8 ml/min; Glucose 126.0 mg/dl (70-99(Fasting)); Potassium 4.1 mmol/L (3.5-5.1); Sodium 134.0 mmol/L (136-145)
--- NOTE | 2025-10-24 09:23 | Infectious Disease Consult ---
Date of Consultation October 24, 2025 Assessment & Plan (1) Recurrent urinary tract infection: (2) Bladder outlet obstruction: Plan Problems: # H/o recurrent UTIs # H/o chronic moderate-severe bilateral hydroureteronephrosis, chronic VUR and chronic bladder outlet obstruction # DM2 # CKD Micro: 10/21 UCx: Nanda albicans/dubliniensis 10/21 BCx x2: NGTD 10/16 UCx: Enterobacter cloacae complex (S ceftriaxone, cipro, levo, TMP/SMX. R nitrofurantoin) 09/12 UCx: GBS, E faecium (S vanc, nitrofurantoin. R amp) Abx: Cefepime 10/21 - present 70 yo F with history of recurrent UTI on Macrobid suppression since 06/2025, c hronic moderate-severe bilateral hydroureteronephrosis, chronic VUR and chronic bladder outlet obstruction, CAD s/p CABG, CKD, DM2, DVT, recent admissions 09/12-09/16/25 for E faecium in UCx s/p dapto --> linezolid x 7 days, 10/16- 10/18/25 with E cloacae in UCx s/p cefepime --> cipro with plan to to complete 7 day course through 10/23 who presented on 10/21 with diffuse body aches, abdominal pain radiating to her back, intractable nausea and vomiting. Also complained of chest congestion and had been around a family member with URI symptoms. On presentation, she was afebrile, hypertensive. Labs showed no leukocytosis, Cr 1.46 around baseline, UA with >50 WBCs, COVID-19/flu/RSV negative. CXR negative. CTAP without contrast showed bladder was significantly distended and appeared thick-walled with mild surrounding infiltration, severe bilateral hydroureteronephrosis similar to 10/16/25, ureters dilated to level of distended bladder, may be related to bladder outlet obstruction. Was started on cefepime pending urine culture. García catheter placed on admission. For her urologic history, she underwent cystourethrogram procedure 07/13, which showed distended and trabeculated bladder with grade 4 vesicoureteral reflux. Was referred to reconstructive urologist, who felt that she had bladder outlet obstruction which should be managed with CIC or garcía. It was felt that ureteral reimplant would be futile and would not improve her urinary retention. Pt was adamant against this, stating she would rather than manage her urinary retention with a garcía. During her August admission, she became more open to the idea of managing her symptoms with a garcía. Urology was consulted this admission, recommended to continue antibiotics and follow-up as outpatient. UCx is growing Nanda albicans/dubliniensis. On my evaluation 10/24, pt reports that she is going to undergo surgery to have tubes placed to fix her urinary reflux. States she was given medicine yesterday to move her bowels, but this led to diarrhea. Her abdominal pain was initially improving, but has since returned, radiating to her back. States she continues to feel sick and believes she still has a UTI. Discussion: Less likely that pt has an active UTI at this time, as urine culture only grew Nanda which is more likely a colonizer in the setting of recent courses of antibiotics. No other infectious symptoms such as fever or leukocytosis. Has completed a course of cefepime/cipro for recent Enterobacter cloacae UTI. Recommendations: - Can discontinue cefepime and restart her home Macrobid prophylaxis at 100 mg daily--although likely low utility of antibiotic prophylaxis if her underlying issue is chronic bladder outlet obstruction - Would hold off on treating the Nanda in the urine culture, as this likely represents a colonizer in the setting of recent courses of antibiotics - Will need management of the chronic bladder outlet obstruction to help prevent recurrent admissions and UTIs Will sign off. Consultation Information Consultation was provided via telemedicine using two-way real-time interactive telecommunication between the patient and the telemedicine provider. For the duration of the visit, the provider was performing the assessment from a different facility than the patient. This includesuse of bluetooth stethoscope forauscultationperformed by the telepresenter that the telemedicine provider can hear if described in the physical exam. Dock Superintendent contact information: Please call [facility] [phone]. (Phone Number For Physician Use Only) After establishing a telemedicine visit, patient was: Patient was verified with two unique identifiers, Patient/authorized rep acknowledged consent and understanding and Gave permission to continue telehealth session Time Spent with Patient: Initial => 55 min History of Present Illness Reason for Consultation: complicated UTI Attending Physician: Chay Archer MD History of Present Illness 70 yo F with history of recurrent UTI on Macrobid suppression since 06/2025, chronic moderate-severe bilateral hydroureteronephrosis, chronic VUR and chronic bladder outlet obstruction, CAD s/p CABG, CKD, DM2, DVT, recent admissions 09/12-09/16/25 for E faecium in UCx s/p dapto --> linezolid x 7 days, 10/16- 10/18/25 with E cloacae in UCx s/p cefepime --> cipro to complete 7 day course through 10/23 who presented on 10/21 with diffuse body aches, abdominal pain radiating to her back, intractable nausea and vomiting. Also complained of chest congestion and had been around a family member with URI symptoms. On presentation, she was afebrile, hypertensive. Labs showed no leukocytosis, Cr 1.46 around baseline, UA with >50 WBCs, COVID-19/flu/RSV negative. CXR negative. CTAP without contrast showed bladder was significantly distended and appeared thick-walled with mild surrounding infiltration, severe bilateral hydroureteronephrosis similar to 10/16/25, ureters dilated to level of distended bladder, may be related to bladder outlet obstruction. Was started on cefepime pending urine culture. García catheter placed on admission. For her urologic history, she underwent cystourethrogram procedure 07/13, which showed distended and trabeculated bladder with grade 4 vesicoureteral reflux. Was referred to reconstructive urologist, who felt that she had bladder outlet obstruction which should be managed with CIC or garcía. It was felt that ureteral reimplant would be futile and would not improve her urinary retention. Pt was adamant against this, stating she would rather than manage her urinary retention with a garcía. During her August admission, she became more open to the idea of managing her symptoms with a garcía. Urology was consulted this admission, recommended to continue antibiotics and follow-up as outpatient. UCx is growing Nanda albicans/dubliniensis. On my evaluation, pt reports that she is going to undergo surgery to have tubes placed to fix her urinary reflux. States she was given medicine yesterday to move her bowels, but this led to diarrhea. Her abdominal pain was initially improving, but has since returned, radiating to her back. States she continues to feel sick and believes she still has a UTI. Allergies Allergy/AdvReac Type Severity Reaction Status Date / Time banana Allergy Severe Vomiting Unverified 07/27/25 09:01 Beef Containing Products Allergy Severe Vomiting Unverified 07/27/25 09:01 codeine Allergy Severe IV--WHOLE Verified 07/27/25 09:01 ARM SWELLED, SHORT OF BREATH morphine Allergy Severe IV--WHOLE Verified 07/27/25 09:01 ARM SWELLED, SHORT OF BREATH peanut Allergy Severe Hives Verified 09/12/25 17:15 Penicillins Allergy Intermediate Rash Verified 07/27/25 09:01 Sulfa (Sulfonamide Allergy Intermediate Rash Verified 07/27/25 09:01 Antibiotics) tetracycline Allergy Intermediate Rash Verified 07/27/25 09:01 Fish Containing Products AdvReac Nausea Verified 09/13/25 11:37 tree nut AdvReac Nausea Verified 09/13/25 14:30 Home Medications Medication Instructions Recorded Confirmed Type tirzepatide 2.5 mg/0.5 mL 2.5 mg subcut WK 07/04/25 10/21/25 History subcutaneous pen injector (Mounjaro) yxydjnzo-nikgohnn-cdivn acid 240 1 tab PO DAILY 07/14/25 10/21/25 History mcg-vit K1 150 mcg-herb 357 tablet (Alive Women's 50 Plus Ultra Multivitamin) insulin glargine 100 unit/mL (3 4 unit (0.04 mL) subcut BID #0 mL 07/15/25 10/21/25 Rx mL) subcutaneous pen (Lantus Solostar U-100 Insulin) estradiol 0.01% (0.1 mg/gram) 0.5 g vaginal DAILY #42.5 grams 07/27/25 10/21/25 Rx vaginal cream (Estrace) aspirin 81 mg tablet 81 mg PO DAILY 09/12/25 10/21/25 History atorvastatin 40 mg tablet 40 mg PO DAILY 09/12/25 10/21/25 History metoprolol succinate 50 mg 50 mg PO DAILY 09/12/25 10/21/25 History tablet,extended release 24 hr acetaminophen 500 mg tablet 1,000 mg (2 x 500 mg) PO Q8H PRN 09/16/25 10/21/25 Rx (Tylenol Extra Strength) pain #30 tabs diclofenac sodium 1 % topical gel 2 g EXT QID PRN Pain in the 09/16/25 10/21/25 Rx (Voltaren Arthritis Pain) sternum #100 grams ondansetron 4 mg disintegrating 4 mg PO Q8H PRN nausea and 09/16/25 10/21/25 Rx tablet vomiting #20 tabs pantoprazole 40 mg tablet,delayed 40 mg PO QAM #30 tabs 09/16/25 10/21/25 Rx release ciprofloxacin HCl 500 mg tablet 500 mg PO BID #10 tabs 10/18/25 10/21/25 Rx (Cipro) Patient History Medical History T2DM (type 2 diabetes mellitus) Bilateral hydronephrosis History of DVT (deep vein thrombosis) Surgical History History of coronary artery bypass graft H/O heart surgery triple bypass CABG S/P urethral surgery Hx of cholecystectomy 1991 Hx of tonsillectomy 1960 Family History Father Diabetes Heart disease Hypertension Sister Diabetes Brother Diabetes Denies family history of Ovarian cancer Prostate cancer Lung cancer Colorectal cancer Stroke Social History Smoking Status: Never smoker Second Hand Exposure: No; Do You Dip or Chew Tobacco: No; Hx Alcohol Use: No Hx Substance Use: No Preferred Language: Austrian Communication Ability: Effective Visual Impairment: No Limitations Hearing Ability: Normal Reel Repairer Required: No Beliefs That Will Affect Care: None marital status: Current Living Situation: Spouse Current Living Situation Comment: current occupational status: retired How many Children do You have: 4 Feels Safe at Home: Yes Childhood Exposure to Second-Hand Smoke: No Diet: other Diet Comment: no carb diet caffeine: Yes during the past year weight has: decreased > 10 lbs Dental Care, Regularly: Yes Physical Activity Frequency: Daily Seatbelt Use: always Sunscreen Use: Yes Assistive Devices: None Review of System A complete ROS was performed and is negative except as mentioned in the HPI. Physical Exam Physical Exam: GEN: Well-appearing, in NAD. RESP: No increased work of breathing NEURO: Alert and oriented. Answers all questions appropriately. Speech not slurred. Results & Data Vital Signs (Past 12 Hours) Vital Signs Temp Pulse Pulse Resp BP Pulse Ox O2 Del Method 10/24/25 07:38 36.4 C L 63 18 136/77 96 Room Air 10/24/25 07:24 70 10/24/25 02:08 36.4 C L 64 18 155/87 H 97 Room Air 10/24/25 00:51 Room Air 10/24/25 00:49 61 10/23/25 23:06 36.6 C 63 16 146/75 H 97 Room Air
[2025-10-24 09:45] LABS: Hematocrit (blood only) 32.7 % (37.0-47.0); Hemoglobin 10.7 g/dL (12.0-16.0); Mean Corpuscular Hemoglobin 27.6 pg (25.0-34.0); Mean Corpuscular Volume 84.5 fL (80.0-100.0); Platelet Count 394 K/uL (130-400); RDW Standard Deviation 43.6 fL (36.4-46.3); Red Blood Count 3.87 M/uL (4.20-5.40); White Blood Count 9.13 K/ul (4.8-10.8)
[2025-10-24 11:37] VITALS: RESP 20; TEMP 97.9; O2SAT 98
--- NOTE | 2025-10-24 12:49 | Pharmacy Report ---
Pharmacy Glycemic Short Note 2 - Date of Service October 24, 2025 - Glycemic Short BSG Results (Last 24 hours): 10/23/25 10/23/25 10/24/25 16:50 20:21 07:33 Glucose POC Glucose 110 H 105 H 137 H 10/24/25 10/24/25 07:56 11:43 Glucose 126 H POC Glucose 232 H OUTPATIENT ANTIDIABETIC REGIMEN: * Lantus 4 units SC BID * Mounjaro 2.5 mg SC weekly HbA1c: 6.3% (09/13/25) ASSESSMENT: 10/24: * Estrellita received a total of 9 unit of insulin yesterday (4 unit were basal and 9 units were bolus). * Fasting BSG was 137mg/dL this morning. Will continue AM basal insulin without change. Bolus insulin parameters were loosened yesterday. Will continue this regimen for now. 10/22: * ILIANA is a 70 year old female who presents with bilateral lower quadrant abdominal pain and nausea/vomiting * Patient with well-controlled T2DM as an outpatient on low-dose basal insulin and GLP-1 agonist * Blood sugars reasonably well-controlled so far this admission * Advancing diet from clears to T2DM today at lunch PLAN FOR INPATIENT GLYCEMIC CONTROL: * Basal insulin * Lantus 4 units SC QAM * Bolus insulin * NovoLog per scale ACHS or Q6hrs while NPO * Goal Range: Low 120 mg/dL - High 160 mg/dL * Correction Factor: 45 mg/dL/unit * Nutritional / Prandial insulin per carb ratio of 1 unit per 15 grams CHO consumed
[2025-10-24] MEDS: LANTUS PER UNIT CHARGE SC SCH (12:54)
[2025-10-24 14:10] VITALS: BP 127/74; PULSE 79
--- NOTE | 2025-10-24 14:18 | Discharge Summary ---
Discharge Summary Date of Service October 24, 2025 Principal Dx & Hospital Course #1 = Principal Diagnosis (1) T2DM (type 2 diabetes mellitus): A1c 6.3 Resume home medications and outpatient follow-up with PCP for diabetes management (2) Bilateral hydronephrosis: Patient was seen by urologist Dr. Angelo She has an indwelling Chavez catheter Urology believes this is a combination of hydroureteronephrosis and neurogenic bladder. They have already spoken to her about surgery and recommended medical management for now and outpatient follow-up to discuss further surgical options. Urine culture did not grow any bacteria: Urine culture was reviewed by ID who saw the patient and recommended stopping cefepime and switching to oral Macrobid 100 mg daily per home dose for prophylaxis and not to treat Nanda in urine at this point. Patient is tolerating oral diet with improvement in her nausea. She is afebrile Patient has chronic back and abdominal pain, she is tolerating oral diet without any issues. Patient is reluctant to try opiates given her multiple allergies and is willing to stick with Tylenol for now and will follow-up with her PCP She will follow-up with urology as outpatient (3) Bladder outlet obstruction: As above (4) Hydroureteronephrosis: As above (5) CAD (coronary artery disease): Elevated troponin secondary to demand ischemia: She was seen by cardiology She has no chest pain or shortness of breath and no EKG changes She will continue aspirin statin and beta-harmony (6) Hypertension: As above under coronary artery disease (7) CKD (chronic kidney disease) stage 3, GFR 30-59 ml/min: Likely related to urological issues Avoid NSAIDs Outpatient follow-up with PCP for monitoring of renal function and electrolytes Plan Patient seen and examined. Granddaughter at bedside. Have gone over the discharge care plan, medications and follow-up with the patient in great detail and answered all her questions. Given new Chavez catheter, patient would benefit from home health services: Discussed with patient This discharge took greater than 30 minutes to coordinate Admission HPI Per Admitting Provider Pt is a 70-year-old female with a history of recurrent UTI, chronic moderate- severe bilateral hydroureteronephrosis, chronic VUR and chronic bladder outlet obstruction, CAD s/p CABG, CKD stage III, DM 2, recent treated for UTI and discharged 72hrs ago returns to ER today with diffuse body aches, abdominal pain radiating to her back and intractable nausea, vomiting. Pt does also complain of chest congestion and has been around a family member with URI symptoms. In the ER her labs did show troponin of 80, with the rest of labs showing no major change since last admission. Pt was discharged home previously on cipro to treat her UTI. She was started on cefepime in the ER and given Phenergan for her intractable nausea vomiting. Pt is being admitted for likely persistent complicated UTI. Discharge Exam General: No acute distress Psych: Awake and alert HEENT: Anicteric sclera, moist oral mucosa CVS: Regular rate and rhythm Lungs: Bilateral air entry, no wheezing noted Abdomen: Soft, nontender, no rebound, no guarding Ext: No lower extremity edema, no calf tenderness : Indwelling Chavez catheter with yellow urine noted Neuro: No focal motor deficits noted Discharge Plan Discharge Items Patient Disposition: Home - Home Health Services Reason For Visit: NAUSEA, WEAKNESS Discharge Diagnosis: Bladder outlet obstruction with suspected neurogenic bladder Chronic moderate to severe bilateral hydroureteronephrosis History of recurrent urinary tract infections Type 2 diabetes mellitus CKD stage III History of coronary artery disease Condition on Discharge: Fair Activity: As commented below Activity Comment: As tolerated Non-emergency contact: Primary Care Provider and Urologist Call non-emergency contact if: you have any medication questions, your symptoms worsen, your pain is worsening and your temperature is above 101 Follow-up/Referrals: Kenan Angelo DO [Physician] - Rosie Lowe DO [Primary Care Provider] - Diet: Carb Consistent or DM2 and Heart Healthy Addtl Attending Provider Instructions: DISCHARGE INSTRUCTION TO PATIENT/FAMILY: Follow-up with your primary care provider within 1 week regarding: Posthospital discharge, medication review, medication refills and follow-up on all your medical problems including diabetes Please take all your discharge medications, discharge information and discharge instructions to all your doctors appointments. Avoid all NSAIDs including ibuprofen, Motrin, Advil, Aleve, naproxen, meloxicam, Toradol, diclofenac Labs through PCP in 1 week: CBC, CMP. MG, B12 You were seen by the urologist and infectious diseases weight loss sales consultant. Your urine culture did not grow any bacteria. Urology Dr. Angelo has recommended outpatient follow-up and he will coordinate with Dr. Mckeon your outpatient urologist for outpatient follow-up. Please call them for outpatient follow-up. As per infectious diseases doctor who is spoke to you via video chat this morning, please continue home dose prophylaxis antibiotic of Macrobid 100 mg daily. Please contact your primary care or urologist for refills. You are being discharged with a Chavez catheter, please follow-up with your urologist regarding Chavez care Pending Studies at Discharge: No Stand-Alone Forms: My [facility], Smoking Cessation Medications and DC Order Prescriptions: New nitrofurantoin monohyd/m-cryst [Macrobid] 100 mg capsule 100 mg PO DAILY Qty: 10 0RF Rx Instructions: Please contact your primary care for refills Continued estradiol [Estrace] 0.01 % (0.1 mg/gram) cream 0.5 g vaginal DAILY Qty: 42.5 2RF Rx Instructions: for 14 days Mounjaro 2.5 mg/0.5 mL pen injector 2.5 mg SUBCUT WK Rx Instructions: THURSDAYS aspirin 81 mg Tablet 81 mg PO DAILY atorvastatin 40 mg Tablet 40 mg PO DAILY metoprolol succinate 50 mg Tablet Extended Release 24 Hr 50 mg PO DAILY acetaminophen [Tylenol Extra Strength] 500 mg Tablet 1,000 mg PO Q8H PRN (Reason: pain) Qty: 30 0RF Rx Instructions: Pilo-pzb-izaghur diclofenac sodium [Voltaren Arthritis Pain] 1 % Gel 2 g EXT QID PRN (Reason: Pain in the sternum) Qty: 100 0RF Rx Instructions: Please give tube from the hospital pantoprazole 40 mg Tablet,Delayed Release (Dr/Ec) 40 mg PO QAM Qty: 30 0RF ondansetron 4 mg tablet,disintegrating 4 mg PO Q8H PRN (Reason: nausea and vomiting) Qty: 20 0RF Alive Women's 50 Plus Ultra MV 240-150 mcg Tablet 1 tab PO DAILY insulin glargine [Lantus Solostar U-100 Insulin] 100 unit/mL (3 mL) Insulin Pen 4 unit SUBCUT BID Qty: 0 0RF Discontinued ciprofloxacin HCl [Cipro] 500 mg tablet 500 mg PO BID Qty: 10 0RF Discharge Orders: Discharge Order (Routine); Ordered 10/24/25 Ordered By: Chay Archer Admission Data Admit Date/Time: 10/21/25 14:31 Attending Provider: Chay Archer Admit Provider: Renialdo Saldana Primary Care Provider: Rosie Lowe Other Providers: Jefferson Lucas; Chanel Andres; Anat Rivera; Christin Gaytan; Rosemarie Haq; Guillermina Salazar; Renetta Gale; Michael Singh; Kenan Angelo Hospital Stay Data Consultations 10/21/25 13:58 ED Decision to Admit Stat 10/22/25 07:56 Consult Cardiology Routine 10/22/25 10:19 Consult Infectious Diseases Routine 10/23/25 07:50 Consult Urology Routine Diagnostic Imagining Performed 10/21/25 12:54 CT abd pelvis wo con Stat Pending Results Patient Have Any Pending Studies at Discharge: No Discharge Instructions Given to Patient (Per Discharging Provider) DISCHARGE INSTRUCTION TO PATIENT/FAMILY: Follow-up with your primary care provider within 1 week regarding: Posthospital discharge, medication review, medication refills and follow-up on all your medical problems including diabetes Please take all your discharge medications, discharge information and discharge instructions to all your doctors appointments. Avoid all NSAIDs including ibuprofen, Motrin, Advil, Aleve, naproxen, meloxicam, Toradol, diclofenac Labs through PCP in 1 week: CBC, CMP. MG, B12 You were seen by the urologist and infectious diseases weight loss sales consultant. Your urine culture did not grow any bacteria. Urology Dr. Angelo has recommended outpatient follow-up and he will coordinate with Dr. Mckeon your outpatient urologist for outpatient follow-up. Please call them for outpatient follow-up. As per infectious diseases doctor who is spoke to you via video chat this morning, please continue home dose prophylaxis antibiotic of Macrobid 100 mg daily. Please contact your primary care or urologist for refills. You are being discharged with a Chavez catheter, please follow-up with your urologist regarding Chavez care Total Time Total Time Spent Total Time Spent (In Minutes): 45 minutes Coding Level of Care Code 18371 INP/OBS DISCH >30 MIN Diagnoses Type 2 diabetes mellitus without complication, with long-term current use of insulin E11.9; Z79.4 Diabetes mellitus group home insulin use: with longitudinal float operator use Diabetes mellitus complication status: without complication Bilateral hydronephrosis N13.30 Bladder outlet obstruction N32.0 Hydroureteronephrosis N13.30 Coronary artery disease involving other coronary artery bypass graft without angina pectoris I25.810 Coronary Disease-Associated Artery/Lesion type: bypass graft, other Associated angina: without angina Hypertension I10 CKD (chronic kidney disease) stage 3, GFR 30-59 ml/min N18.30
== END 2025-10-24 14:28 | disposition home health service (06) | DRG 699 ==
LOC: ED 10:01 → 2N 14:31 → SUATTDRO 14:31 → 2N 15:25